=== PATIENT | female | born 1955 | race Caucasian/White ===

== ENCOUNTER 2019-05-09 12:08 | Outpatient (CLI) | payer MEDICARE, SELFPAY ==
[2019-05-09 12:22] LABS: Basophils Absolute Auto 0.02 K/mm3 (0.00-0.10); Basophils Percent Auto 0.3 % (0.0-1.0); Eosinophils Absolute Auto 0.08 K/mm3 (0.02-0.50); Eosinophils Percent Auto 1.1 % (1.0-6.0); Hematocrit 40.8 % (35.0-42.0); Immature Granulocyte Absolute 0.03 K/mm3 (0.00-0.00); Immature Granulocyte Percent A 0.4 % (0.0-0.0); Lymphocytes Percent Auto 21.9 % (18.0-42.0); Mean Corpuscular HGB Conc 31.9 g/dL (32.0-36.0); Mean Corpuscular Hemoglobin 26.1 pg (27.0-31.0); Mean Corpuscular Volume 81.9 fL (78.0-102.0); Mean Platelet Volume 9.6 fl (9.2-11.8); Monocytes Absolute Auto 0.53 K/mm3 (0.10-0.90); Monocytes Percent Auto 7.3 % (2.0-11.0); Platelet Count Result 354 K/mm3 (150-420); Red Blood Count 4.98 M/mm3 (4.20-5.40); Red Cell Distribution Width 17.1 % (11.6-14.4); White Blood Count 7.3 K/mm3 (4.8-10.8)
[2019-05-09 13:17] LABS: Alanine Aminotransferase 26 U/L (14-59); Alkaline Phosphatase 53 U/L (46-116); Anion Gap 13.7 mmol/L (7-16); Aspartate Amino Transferase 17 U/L (15-37); Bilirubin,Total 0.4 mg/dL (0.00-1.00); Blood Urea Nitrogen 17 mg/dL (7-18); Calcium 9.4 mg/dL (8.5-10.1); Carbon Dioxide 31 mmol/L (21-32); Chloride 101 mmol/L (98-108); Cholesterol 100 mg/dL (0-200); Estimated Glomerular Filt Rate > 60; Glucose 90 mg/dL (70-99); HDL Direct 42 mg/dL (40-60); LDL Cholesterol Calculated 43 mg/dL (<130); Osmolality Calculated 293 mOsm/kg (285-295); Potassium 4.7 mmol/L (3.5-5.1); Sodium 141 mmol/L (136-145); Triglycerides 74 mg/dL (0-150)
[2019-05-09 13:23] LABS: Thyroid Stimulating Hormone Reflex 2.48 u/IU/mL (0.36-3.74)
[2019-05-13 02:06] LABS: Hepatitis C Virus Antibody Nonreactive (Nonreactive)
== END 2019-05-09 12:09 | disposition home or self-care (01) ==
LOC: CHSLAB 12:10
PROVIDERS: PCP Family Medicine; Visit Provider Family Medicine
DX: E11.9 Type 2 diabetes mellitus without complications (principal); Z11.59 Encounter for screening for other viral diseases
CPT/HCPCS: 36415; 80053; 80061; 84443; 85025

== ENCOUNTER 2019-08-08 13:46 | Outpatient (CLI) | payer MEDICARE, SELFPAY ==
--- NOTE | ~2019-08-08 | XR_ITS ---
XR finger 4th RT min 2V DATE: 08/08/2019 14:07 INDICATION: Fourth digit contusion TECHNIQUE: 4 views COMPARISON: None FINDINGS: There is a very small cortical avulsion fracture from the dorsal base of the distal phalanx , with associated flexion deformity at the distal interphalangeal joint. There is mild to moderate osteoarthritic narrowing and minimal spurring at the proximal interphalange al joint. There is mild osteoarthritis of the third metacarpophalangeal joint. No other fracture or dislocation is detected. IMPRESSION: Reviewed, dictated and finalized at location A. IMPRESSION:
== END 2019-08-08 13:47 | disposition home or self-care (01) ==
LOC: CHSLAB 13:48
PROVIDERS: PCP Family Medicine; Visit Provider Family Medicine
DX: R29.898 Other symptoms and signs involving the musculoskeletal system (principal); S60.00XA Contusion of unspecified finger without damage to nail, initial encounter
CPT/HCPCS: 73140

== ENCOUNTER 2019-12-31 12:23 | Outpatient (CLI) | payer MEDICARE, SELFPAY ==
--- NOTE | ~2019-12-31 | MM_ITS ---
EXAMINATION: MM screening eunice BI w [place] HISTORY: Screening TECHNIQUE: Craniocaudal and mediolateral oblique 3-D tomosynthesis images were obtained and synthetic 2-D images were generated. CAD analysis was submitted and interpreted. COMPARISON: Comparison to multiple prior studies sequentially, with oldest reviewed study dated 11/14. BREAST PARENCHYMAL COMPOSITION: Breast composed of scattered areas of fibroglandular density FINDINGS: There is no evidence of suspicious mass, calcification, or architectural distortion to sugg est malignancy in either breast. There has been no suspicious interval change. IMPRESSION: 1. No mammographic evidence of malignancy. 2. Recommend routine screening mammography in one year. BI-RADS Category 1: Negative Reviewed, dictated and finalized at location A. T[employer] AUD[employer]OR
== END 2019-12-31 12:24 | disposition home or self-care (01) ==
LOC: CHSIMG 12:23
PROVIDERS: PCP Family Medicine; Visit Provider Family Medicine
DX: Z12.31 Encounter for screening mammogram for malignant neoplasm of breast (principal)
CPT/HCPCS: 77063; 77067

== ENCOUNTER 2020-04-16 09:41 | Outpatient (CLI) | payer MEDICARE, SELFPAY ==
[2020-04-16 09:56] LABS: Basophils Absolute Auto 0.01 K/mm3 (0.00-0.10); Basophils Percent Auto 0.1 % (0.0-1.0); Eosinophils Absolute Auto 0.12 K/mm3 (0.02-0.50); Eosinophils Percent Auto 1.8 % (1.0-6.0); Hematocrit 43.1 % (35.0-42.0); Hemoglobin 13.9 g/dL (11.7-13.8); Immature Granulocyte Absolute 0.04 K/mm3 (0.00-0.00); Immature Granulocyte Percent A 0.6 % (0.0-0.0); Lymphocytes Absolute Auto 1.54 K/mm3 (1.10-4.50); Mean Corpuscular HGB Conc 32.3 g/dL (32.0-36.0); Mean Corpuscular Hemoglobin 28.2 pg (27.0-31.0); Mean Corpuscular Volume 87.4 fL (78.0-102.0); Mean Platelet Volume 9.5 fl (9.2-11.8); Monocytes Absolute Auto 0.48 K/mm3 (0.10-0.90); Monocytes Percent Auto 7.2 % (2.0-11.0); Neutrophils Absolute Auto 4.5 K/mm3 (1.7-7.2); Neutrophils Percent Auto 67.3 % (50.0-70.0); Platelet Count Result 319 K/mm3 (150-420); Red Blood Count 4.93 M/mm3 (4.20-5.40); Red Cell Distribution Width 15.1 % (11.6-14.4); White Blood Count 6.7 K/mm3 (4.8-10.8)
[2020-04-16 10:35] LABS: Alanine Aminotransferase 34 U/L (14-59); Albumin Level 4.2 g/dL (3.4-5.0); Alkaline Phosphatase 56 U/L (46-116); Anion Gap 8 mmol/L (8-16); Aspartate Amino Transferase 30 U/L (15-37); Bilirubin,Total 0.5 mg/dL (0.00-1.00); Blood Urea Nitrogen 24 mg/dL (7-18); Calcium 9.5 mg/dL (8.5-10.1); Carbon Dioxide 29 mmol/L (21-32); Chloride 103 mmol/L (98-108); Estimated Glomerular Filt Rate > 60; Glucose 124 mg/dL (70-99); Osmolality Calculated 295 mOsm/kg (285-295); Sodium 140 mmol/L (136-145); Total Protein 7.4 g/dL (6.4-8.2)
== END 2020-04-16 09:42 | disposition home or self-care (01) ==
LOC: CHSLAB 09:44
PROVIDERS: PCP Family Medicine; Visit Provider Family Medicine
DX: E11.9 Type 2 diabetes mellitus without complications (principal)
CPT/HCPCS: 36415; 80053; 83036; 85025

== ENCOUNTER 2020-05-14 12:13 | Outpatient (CLI) | payer MEDICARE, SELFPAY ==
--- NOTE | ~2020-05-14 | DEXA_ITS ---
Bone Density Report Name: Marge Romero Age: 65 Sex: Female Ethnicity: White Date of : 1955 Indication: osteopenia; hysterectomy; Referring Provider: Trisha Kay Study: Bone densitometry was performed. Exam Date: May 14, 2020 Accession number: [id number] Bone Density: Region BMD T-score Z-score Classification AP Spine(L1, L3, L4) 1.008 -0.4 1.5 Normal Femoral Neck (Left) 0.574 -2.5 -0.9 Osteoporosis Total Hip (Left) 0.706 -1.9 -0.6 Osteopenia Femoral Neck (Right) 0.618 -2.1 -0.5 Osteopenia Total Hip (Right) 0.700 -2.0 -0.7 Osteopenia Femoral Neck Mean 0.596 -2.3 -0.7 Osteopenia Total Hip Mean 0.703 -2.0 -0.7 Osteopenia World Health Organization criteria for BMD impression classify patients as: Normal (T-score at or above -1.0), Osteopenia (T-score between -1.0 and -2.5), or Osteoporosis (T-score at or below -2.5). Previous Exams: Region Exam Age BMD T-score BMD Change BMD Change Date g/cm2 vs Baseline vs Previous AP Spine (L1,L3-L4) 05/14/2020 65 1.008 -0.4 0.012 (1.2%)# 0.012 (1.2%)# 12/01/2016 61 0.996 -0.5 Total Hip(Left) 05/14/2020 65 0.706 -1.9 -0.018 (-2.4%) -0.018 (-2.4%) 12/01/2016 61 0.723 -1.8 *Denotes significance at 95% confidence level, LSC for AP Spine = 0.022 g/cm2, LSC for Total Hip = 0.027 g/cm2 # Denotes dissimilar scan types or analysis methods Clinical Information Provided by Patient: Has the following medical conditions: Hysterectomy Patient maximum height was 67 Drinks caffeinated beverages Onset of menses at age 19 Number of children 2 Missed period for more than 6 months in a row Impression: The patient has osteoporosis, based on the Left Femoral Neck T-score. No significant bone loss was observed. Discussion: INCREASED RISK OF FRACTURE. BONE DENSITY IS UNDESIRABLY LOW AT ONE OR MORE SKELETAL SITES, CONSISTENT WITH POSTMENOPAUSAL OSTEOPOROSIS. This patient's lowest T-score meets the World Health Organization's (WHO) criteria for osteoporosis at one or more sites (T-score -2.5 or below). In untreated patients, the risk of osteoporotic fracture increases approximately two-fold for each 1.0 SD decrease in T-score. Low bone density is not the only risk factor for fracture; also consider factors such as patient's age, frailty or poor health, risk of falling, risk of injury, previous osteoporotic fracture, family history of osteoporosis, cigarette smoking, low body weight, etc. Not everyone with low bone mineral density has osteoporosis; osteomalacia and other metabolic bone disorders should also be considered. Patients who have osteoporosis should be evalua
== END 2020-05-14 12:14 | disposition home or self-care (01) ==
LOC: CHSIMG 12:16
PROVIDERS: PCP Family Medicine; Visit Provider Family Medicine
DX: M81.0 Age-related osteoporosis without current pathological fracture (principal)
CPT/HCPCS: 77080

== ENCOUNTER 2020-07-30 08:22 | Outpatient (CLI) | payer MEDICARE, SELFPAY ==
[2020-07-30 09:53] LABS: Cholesterol 129 mg/dL (0-200); HDL Direct 51 mg/dL (40-60); LDL Cholesterol Calculated 68 mg/dL (<130); Triglycerides 50 mg/dL (0-150)
== END 2020-07-30 08:23 | disposition home or self-care (01) ==
LOC: CHSLAB 08:23
PROVIDERS: PCP Family Medicine; Visit Provider Nurse Practitioner Family
DX: E78.5 Hyperlipidemia, unspecified (principal)
CPT/HCPCS: 36415; 80061

== ENCOUNTER 2020-10-01 10:00 | Outpatient (RCR) | payer MEDICARE, SELFPAY ==
--- NOTE | 2020-08-27 11:30 | PTOPEVAL ---
INITIAL PHYSICAL THERAPY EVALUATION and PLAN OF CARE Thank you for referring Marge Romero to [facility].? Marge is scheduled to be seen for physical therapy?1x/week for 4 weeks (there will be a 2 wk delay before onset of POC due to PT schedule and vacation). Please review, sign, date and return this plan of care CLEVE. I agree with and certify that the following plan of care is medically necessary. Referring Physician Date Admitting Provider: Attending Provider: Beka Leyva MD Referring Provider: *PT Outpatient Evaluation Start: 08/27/20 10:24 Freq: Status: Active Protocol: Document 08/27/20 10:20 ALEXIS (Rec: 08/27/20 11:29 ALEXIS [id number]) Therapy Assessment Status Assessment Status Assessment Status Evaluation Outpatient Past Medical History Past Medical History Source of Past Medical History Patient Cardiovascular History Hx Coronary Stent Yes: 2019 - 2 done Hx Hypercholesterolemia Yes Hx Hypertension Yes Hx Myocardial Infarction Yes: 2019 Gastrointestinal History Hx Diverticulitis Yes Genitourinary History Hx Other Genitourinary Disorders Yes: urinary incontinence Musculoskeletal History Hx Osteoporosis Yes Endocrine History Hx Diabetes Yes Reproductive History Hx Hysterectomy Yes: 1991 uterus & 1 ovary, 2nd ovary 2002 Hx Other Reproductive Disorders Yes: polycystic ovaries - prior to ovary removal Psychosocial History Hx Anxiety Yes Evaluation Information Problem Diagnosis urinary incontinence Onset slowly worsening - worse past 6 months Subjective Information Urinary leakage - worse with Query Text:As Reported By Patient/ walking to the bathroom, but Family will also have with cough, sneeze Once she feels the urge to urinate, begins to start leaking when not sitting on toliet Prior Level of Function Activity Level (Last 3 Months) 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 Home setraline, vitamins, fish oil, Meds Must Be Re-entered With Each Visit. omega 3, fosamax, melatonin, Vit C, zinc, clopitrial, 81 mg aspirin Home Setting Home Type House,Multiple Levels Environmental Barriers Stairs, Greater than 4 Living Situation With A
--- NOTE | 2020-10-01 12:14 | PTOPEVAL ---
PHYSICAL THERAPY DISCHARGE SUMMARY Thank you for referring Marge Romero to [facility].? Marge has been seen for 4 visits. She has met all goals set and is doing well with HEP. She is ready for d/c from PT to HEP. I agree with Marge's discharge from PT. Referring Physician Date Admitting Provider: Attending Provider: Beka Leyva MD Referring Provider: Therapy Assessment Status Assessment Status Assessment Status Discharge Evaluation Information Problem Diagnosis urinary incontinence Subjective Information Marge stated she has been very Query Text:As Reported By Patient/ busy at work - as well as Family having some neck and back pain - therefore she has slacked off from her exercises. Reinforced that she needs to continue with exercises on a regular basis. Generally not getting up at night to go to bathroom and no leakage with walking to bathroom. Pain Assessment Timing of Pain Assessment Timing of Pain Assessment Assessment Self Report Self Report Pain Level 0 Pelvic Health Evaluation Pelvic Floor Assessment Sustained Levator Ani Strength 4/5 Quick Levator Ani Contraction in 15 12 Seconds Rehab Teaching Rehab Teaching Teaching Topic Rehab Teaching Topic Components Exercise,Home Program As Pertains To Technique Recipient Patient Learning Preferences Audio,Demonstration,Discussion ,One-on-One Instruction,Visual ,Written Barriers to Learning None Readiness to Learn Excellent Response Returns Demonstration, Verbalizes Understanding Method Discussion,Handout,One-On-One Instruction,Written Instruction Additional Rehab Teaching Comments upgraded HEP, reviewed importance of continuing with HEP PT Clinical Summary Clinical Summary Protocol: PTEVCODE PT Clinical Summary Incontinence Impact Questionnaire - 9.5% Urogenital Distress Inventory - 11.1% Marge has done well in PT in regards to urinary incontinence. She has met all goals set and is doing well with HEP. She is to continue
== END 2020-11-10 16:26 | disposition home or self-care (01) ==
LOC: ANHHIPT 10:00
PROVIDERS: PCP Family Medicine; Visit Provider Family Medicine
DX: M25.511 Pain in right shoulder (principal); N39.46 Mixed incontinence
CPT/HCPCS: 97110; 97161

== ENCOUNTER 2020-12-07 12:00 | Outpatient (CLI) | payer MEDICARE, SELFPAY ==
--- NOTE | 2020-12-07 12:19 | ECG_ITS ---
Measurements Intervals Hamer Rate: 56 P: 39 MD: 156 QRS: 13 QRSD: 90 T: 14 QT: 466 QTc: 451 Interpretive Statements SINUS BRADYCARDIA DELAYED PRECORDIAL R/S TRANSITION BORDERLINE ECG Electronically Signed On 12-07-2020 12:56:17 CDT by Maxime Vuong D.O.
[2020-12-07 12:38] LABS: Hematocrit 40.5 % (37.0-47.0); Hemoglobin 13.1 g/dL (12.0-15.0)
[2020-12-07 13:07] LABS: Anion Gap 11 mmol/L (8-16); Blood Urea Nitrogen 38 mg/dL (7-17); Calcium 9.4 mg/dL (8.4-10.2); Carbon Dioxide 24 mmol/L (22-30); Chloride 105 mmol/L (98-107); Estimated Glomerular Filt Rate > 60; Glucose 120 mg/dL (65-110); Potassium 4.7 mmol/L (3.4-5.0); Sodium 140 mmol/L (137-145)
== END 2020-12-07 12:01 | disposition home or self-care (01) ==
LOC: ANHSURGERY 12:05
PROVIDERS: Anesthesiology; PCP Family Medicine; Visit Provider Orthopaedic Surgery
DX: D64.9 Anemia, unspecified (principal); I10 Essential (primary) hypertension; R00.1 Bradycardia, unspecified
CPT/HCPCS: 36415; 80048; 85014; 85018; 93005

== ENCOUNTER 2020-12-10 00:29 | Day surgery (SDC) | payer MEDICARE, SELFPAY ==
[2020-12-06 13:13] VITALS: BMI 24.3
[2020-12-10] VITALS (8 sets, daily range): BP systolic 99–120; BP diastolic 47–67; PULSE 58–67; RESP 5–18; TEMP 36.3–36.4; O2SAT 96–100
--- NOTE | 2020-12-10 07:16 | WPDHPUPDATE1 ---
History and Physical Update Update Date/Time: 12/10/20 07:16 History and Physical has been reviewed, including an updated exam of the patient. There are NO changes in the patient's condition. Risks, benefits, and alternatives have been discussed and questions answered. Patient agrees to proceed with procedure.
[2020-12-10] MEDS: LACTATED RINGERS 1,000 ML 30 ML IV CONT (07:35)
[2020-12-10] MEDS: ACETAMINOPHEN 500 MG TABLET 1000 MG PO (07:38)
[2020-12-10] MEDS: CELECOXIB 200 MG CAPSULE PO (07:38)
[2020-12-10 07:44] LABS: Glucose Point of Care 134 mg/dl (65-105)
--- NOTE | 2020-12-10 07:56 | WPDANESEPPF ---
Anes - Initial Pre Proc Eval Procedure: Operation Date: 12/10/20 09:00 Proposed Procedures p Right Trigger Finger Release, Fourth Digit A-1 Zunilda - Wilfredo Velez MD Date/Time: 12/10/20 07:56 Surgeon: Wilfredo Velez MD Pre Op Diagnosis: right trigger finger a-1 zunilda Patient Data Age: 65 Gender: F Height: 1.66 m Weight: 68.7 kg Last Vital Signs Temp 36.3 C L 12/10/20 07:49 Pulse 58 L 12/10/20 07:49 Resp 18 12/10/20 07:49 BP 101/47 L 12/10/20 07:49 Pulse Ox 98 12/10/20 07:49 Allergies Allergy/AdvReac Type Severity Reaction Status Date / Time Penicillins Allergy Unknown Hives Verified 12/10/20 07:48 IVP dye Allergy Intermediate Hives Uncoded 12/10/20 07:48 Home Medications Medication Instructions Recorded Confirmed Type aspirin 81 mg tablet,delayed 81 mg PO DAILY 01/31/19 12/10/20 History release atorvastatin 40 mg tablet 40 mg PO DAILY 01/31/19 12/10/20 History clopidogrel 75 mg tablet 75 mg PO DAILY 01/31/19 12/10/20 History dapagliflozin 10 mg tablet 10 mg PO DAILY 01/31/19 12/10/20 History hydroxyzine HCl 25 mg tablet 25 mg PO TID PRN 01/31/19 12/10/20 History metformin 1,000 mg tablet 1,000 mg PO BID 01/31/19 12/10/20 History fluticasone propionate 50 1 spray NASAL DAILY #18.2 ml 04/02/19 12/10/20 Rx mcg/actuation nasal spray,suspension liraglutide 0.6 mg/0.1 mL (18 mg/3 18 mg SUBCUT QPM 05/09/19 12/10/20 History mL) subcutaneous pen injector nitroglycerin 0.4 mg sublingual 0.4 mg SUBLINGUAL PRN PRN tablet 05/09/19 12/10/20 History tablet omega-3 fatty acids 1,000 mg 1,000 mg PO BID cap 05/09/19 12/10/20 History capsule iron 125 mg-folate no.9 1 mg-vit 1 tablet PO DAILY #30 tablet 09/04/19 12/10/20 Rx C 170 mg-D3 1,000 unit-B6-B12 tablet diclofenac potassium 50 mg tablet 50 mg PO TID PRN #90 tablet 09/12/19 12/10/20 Rx lisinopril 20 mg tablet 20 mg PO DAILY #90 tablet 12/03/19 12/10/20 Rx ascorbic acid (vitamin C) 1,000 mg 1 g PO BID tablet 04/30/20 12/10/20 History tablet cetirizine 10 mg capsule 10 mg PO DAILY PRN 04/30/20 12/10/20 History melatonin 10 mg tablet 10 mg PO QHS 04/30/20 12/10/20 History zinc 50 mg tablet 50 mg PO DAILY 04/30/20 12/10/20 History multivitamin 1 tablet PO DAILY #90 tablet 06/07/20 12/10/20 Rx metoprolol tartrate 50 mg tablet 50 mg PO Q12H #180 tablet 07/23/20 12/10/20 Rx insulin degludec 100 unit/mL (3 20 unit SUBCUT QPM ml 07/30/20 12/10/20 History mL) subcutaneous pen cholecalciferol (vitamin D3) 125 125 mcg PO DAILY #30 cap 10/08/20 12/10/20 Rx mcg (5,000 unit) capsule chlorhexidine gluconate 4 % 1 applic TOPICAL ONCE #237 ml 11/23/20 12/10/20 Rx topical liquid sertraline 100 mg tablet 100 mg PO DAILY #90 tablet 12/08/20 12/10/20 Rx Laboratory Tests 12/10/20 07:41 POC Capillary Glucose 134 mg/dl H mg/dl (65-105) Patient hx anesthesia problems: post op nausea/vomiting Family hx anesthesia problems: none Results Review: All pre-operative results and documents have been reviewed as part of the pre-operative evaluation. [facility] Past Medical History Medical History Anxiety Arthritis CAD (coronary artery disease) Depression Diverticulosis DM2 (diabetes mellitus, type 2) Food allergy DMITRI (generalized anxiety disorder) GERD (gastroesophageal reflux disease) High cholesterol History of anesthesia reaction Hyperlipidemia Hypertension Mixed stress and urge urinary incontinence Myocardial infarction May 2018 Seasonal allergies Trigger ring finger of right hand Surgical History Surgical History H/O oophorectomy History of coronary artery stent placement History of hysterectomy Family History Family History Father Diabetes mellitus Sibling Pancreatic cancer Type 1 diabetes Brother Family history of
[2020-12-10] MEDS: SCOPOLAMINE 1.5 MG PATCH TRANSDERM (08:37)
[2020-12-10] MEDS: ceFAZolin 2 GM/D5W 50 ML 2 GM/50 ML BAG IVPB (08:39)
[2020-12-10] MEDS: BUPIVACAINE HCL 0.5% PF 30 ML VIAL INFILTRATE (09:07)
--- NOTE | 2020-12-10 09:29 | W.PM.PROC2 ---
Procedure Note - Detailed Date of Procedure 12/10/20 Pre-op Diagnosis TRIGGERING OF RIGHT OF RING FINGER Post-op Diagnosis same Procedure Performed RELEASE OF A1 BETTY RIGHT RING FINGER Surgeon Wilfredo Velez MD Anesthesia general Description of Procedure THE PATIENT WAS TAKEN TO THE OR IN STABLE CONDITION. THE RIGHT UPPER EXTREMITY WAS PREPPED AND DRAPED IN THE USUAL STERILE FASHION. THE TOURNIQUET WAS INFLATED. AN INCISION WAS MADE OVER THE RING FINGER A1 BETTY DOWN THROUGH THE SUBCUTANEOUS TISSUES UNTIL THE A1 BETTY SHEATH WAS VISUALIZED. AN INCISION WAS MADE OVER THE BETTY UNTIL THE FLEXOR TENDON WAS IDENTIFIED. THE INCISION CONTINUED PROXIMALLY AND DISTALLY UNTIL THE BETTY WAS RELEASED AND THE TENDON EXCURSION WAS WITHOUT TRIGGERING. THE TENDONS WERE DIRECTLY VISUALIZED AND WERE INTACT. THE TOURNIQUET WAS DEFLATED AND THE WOUND WAS WASHED AND THE BLEEDERS WERE CAUTERIZED. THE SKIN WAS REPAIRED WITH 4-0 NYLON. A STERILE DRESSING WAS APPLIED. THE PATIENT WAS EXTUBATED AND SENT TO RECOVERY ROOM. Estimated Blood Loss 1 Complications No immediate complications Condition stable Disposition PACU
--- NOTE | 2020-12-10 09:51 | SUR.PHASEI ---
0951- family member updated.
== END 2020-12-10 11:21 | disposition home or self-care (01) ==
PROVIDERS: PCP Family Medicine; Visit Provider Orthopaedic Surgery
PROC: (CPT 26055; principal; 2020-12-10 09:00)
DX: M65.321 Trigger finger, right index finger (principal); F41.8 Other specified anxiety disorders; M19.90 Unspecified osteoarthritis, unspecified site; I25.10 Atherosclerotic heart disease of native coronary artery without angina pectoris; K57.90 Diverticulosis of intestine, part unspecified, without perforation or abscess without bleeding; E11.9 Type 2 diabetes mellitus without complications; F41.1 Generalized anxiety disorder; E78.00 Pure hypercholesterolemia, unspecified; E78.5 Hyperlipidemia, unspecified; I10 Essential (primary) hypertension; I25.2 Old myocardial infarction; Z79.82 Long term (current) use of aspirin; Z79.84 Long term (current) use of oral hypoglycemic drugs; M79.641 Pain in right hand; Z87.891 Personal history of nicotine dependence; Z79.4 Long term (current) use of insulin
CPT/HCPCS: 26055; 82948; A9270; J0690; J1100; J2250; J2405; J2704; J3010; J7120

== ENCOUNTER 2020-12-14 13:21 | Outpatient (CLI) | payer MEDICARE, SELFPAY ==
[2020-12-14 14:12] LABS: Influenza A QL RT-PCR Negative (Negative); Influenza B QL RT-PCR Negative (Negative); SARS-CoV-2 RNA PCR Negative (Negative)
== END 2020-12-14 13:22 | disposition home or self-care (01) ==
LOC: CHSLAB 13:25
PROVIDERS: PCP Family Medicine; Visit Provider Nurse Practitioner Family
DX: R05.9 Cough, unspecified (principal); Z20.822 Contact with and (suspected) exposure to COVID-19
CPT/HCPCS: 87502; C9803; U0003; U0005

== ENCOUNTER 2021-01-07 07:09 | Outpatient (CLI) | payer MEDICARE, SELFPAY ==
--- NOTE | ~2021-01-07 | MM_ITS ---
EXAMINATION: MM screening eunice BI w [place] HISTORY: Screening mammogram TECHNIQUE: Craniocaudal and mediolateral oblique 3-D tomosynthesis images were obtained and synthetic 2-D images were generated. CAD analysis was submitted and interpreted. COMPARISON: 12/2019, 12/27/2018, 12/11/2016 bilateral screening mammogram examinations BREAST PARENCHYMAL COMPOSITION: There are scattered areas of fibroglandular density. FINDINGS: Occasional benign calcifications. There is no evidence of suspicious mass, calcification, o r architectural distortion to suggest malignancy in either breast. There has been no suspicious inter ivan change. IMPRESSION: 1. No mammographic evidence of malignancy. 2. Recommend routine screening mammography in one year. BI-RADS Category 2: Benign finding(s). Reviewed, dictated and finalized at location A. LER
== END 2021-01-07 07:10 | disposition home or self-care (01) ==
LOC: CHSIMG 07:11
PROVIDERS: PCP Family Medicine; Visit Provider Family Medicine
DX: Z12.31 Encounter for screening mammogram for malignant neoplasm of breast (principal)
CPT/HCPCS: 77063; 77067

== ENCOUNTER 2021-02-11 09:28 | Outpatient (CLI) | payer MEDICARE, SELFPAY ==
--- NOTE | ~2021-02-11 | XR_ITS ---
EXAMINATION: XR hip RT min 3V w AP pelvis INDICATION: Right hip pain TECHNIQUE: AP view the pelvis and three views of the right hip are obtained. COMPARISON: 02/07/2010 FINDINGS: Bone alignment is normal. There is no fracture. There is mild osteoarthritis of the hips. P hleboliths are noted in the pelvis. IMPRESSION: 1. No acute osseous abnormality. Reviewed, dictated and finalized at location A. CAL PLANNER
== END 2021-02-11 09:29 | disposition home or self-care (01) ==
LOC: CHSIMG 09:30
PROVIDERS: PCP Nurse Practitioner Family; Visit Provider Nurse Practitioner Family
DX: M25.551 Pain in right hip (principal)
CPT/HCPCS: 73502

== ENCOUNTER 2021-02-14 07:30 | Outpatient (RCR) | payer MEDICARE, SELFPAY ==
--- NOTE | 2021-02-14 08:06 | PTOPEVAL ---
Thank you for referring Marge Romero to [facility].? The patient is scheduled to be seen for therapy? ____x/week for ___ weeks. Please review, sign, date and return this plan of care CLEVE. I agree with and certify that the following plan of care is medically necessary. Referring Physician Date Admitting Provider: Attending Provider: Trisha Kay NP Referring Provider: *PT Outpatient Evaluation Start: 02/14/21 06:56 Freq: Status: Active Protocol: Document 02/14/21 06:56 ACR (Rec: 02/14/21 08:04 ACR [id number]) Therapy Assessment Status Assessment Status Assessment Status Evaluation Outpatient Past Medical History Neurological History Hx Neurological Disorders No Significant History Cardiovascular History Hx Other Cardiac Disorders Yes: DR TIFFANY DUNLAP [facility] [phone] SEES ONCE A YR Respiratory History Hx Respiratory Disorders No Significant History Gastrointestinal History Hx Gastroesophageal Reflux Disease Yes Genitourinary History Hx Genitourinary Disorders No Significant History Musculoskeletal History Hx Arthritis Yes: GENERALIZED Hx Orthopedic Surgery Yes: BILAT KNEE SCOPE Hx Other Musculoskeletal Disorders Yes: RT TRIGGER FINGER Hematological History Hx Anemia Yes: TAKING PO IRON TABS Endocrine History Hx Diabetes Yes HEENT History Hx Sinus Problems Yes: ALLERGIES Hx Other HEENT Disorders Yes: WEARS GLASSES Integumentary History Hx Skin Disorders No Significant History Reproductive History Hx Section Yes: X2 Psychosocial History Hx Depression Yes Pain History History of Any Previous or Ongoing No Significant History Instance of Pain Anesthesia History Hx Post-Op Nausea/Vomiting Yes Evaluation Information Problem Diagnosis R hip pain Onset 02/11/21 Subjective Information Patient states that she has Query Text:As Reported By Patient/ had hip problems for awhile, Family but recently when she is walking or takes the wrong step the pain shoots in the hip region and occasionally down the leg. She states that the knee also bothers her but thinks it is from compensation . Patient states that walking/ standing for a period of time, picking up a heavy object, getting up from a seated position are all difficult for her. Patient states madai
--- NOTE | 2021-03-09 08:01 | PTOPEVAL ---
Thank you for referring Marge Romero to [facility].? The patient is scheduled to be seen for therapy? ____x/week for ___ weeks. Please review, sign, date and return this plan of care CLEVE. I agree with and certify that the following plan of care is medically necessary. Referring Physician Date Admitting Provider: Attending Provider: Trisha Kay NP Referring Provider: *PT Outpatient Evaluation Start: 02/14/21 06:56 Freq: Status: Active Protocol: Document 03/09/21 07:02 ACR (Rec: 03/09/21 07:58 ACR [id number]) Therapy Assessment Status Assessment Status Assessment Status Progress Outpatient Past Medical History Neurological History Hx Neurological Disorders No Significant History Cardiovascular History Hx Other Cardiac Disorders Yes: DR TIFFANY DUNLAP [facility] [phone] SEES ONCE A YR Respiratory History Hx Respiratory Disorders No Significant History Gastrointestinal History Hx Gastroesophageal Reflux Disease Yes Genitourinary History Hx Genitourinary Disorders No Significant History Musculoskeletal History Hx Arthritis Yes: GENERALIZED Hx Orthopedic Surgery Yes: BILAT KNEE SCOPE Hx Other Musculoskeletal Disorders Yes: RT TRIGGER FINGER Hematological History Hx Anemia Yes: TAKING PO IRON TABS Endocrine History Hx Diabetes Yes HEENT History Hx Sinus Problems Yes: ALLERGIES Hx Other HEENT Disorders Yes: WEARS GLASSES Integumentary History Hx Skin Disorders No Significant History Reproductive History Hx Section Yes: X2 Psychosocial History Hx Depression Yes Pain History History of Any Previous or Ongoing No Significant History Instance of Pain Anesthesia History Hx Post-Op Nausea/Vomiting Yes Evaluation Information Problem Diagnosis R hip pain Onset 02/11/21 Subjective Information Patient states that her hip is Query Text:As Reported By Patient/ feeling a lot better, but her Family maldonado/ankle region bothers her quite a bit by the end of the day. She states that her maldonado is sensitive to touch after a day at work. She states that she feels her balance is quite a bit better, her hip does not cause the sharp pain like it use to, and all other daily activities are a little easier. She states she does not have much difficulty doing anything since
--- NOTE | 2021-03-16 08:21 | PTOPEVAL ---
Thank you for referring Marge Romero to [facility].? The patient is scheduled to be seen for therapy? ____x/week for ___ weeks. Please review, sign, date and return this plan of care CLEVE. I agree with and certify that the following plan of care is medically necessary. Referring Physician Date Admitting Provider: Attending Provider: Trisha Kay NP Referring Provider: *PT Outpatient Evaluation Start: 02/14/21 06:56 Freq: Status: Active Protocol: Document 03/16/21 07:06 [facility] (Rec: 03/16/21 08:20 [facility] [id number]) Therapy Assessment Status Assessment Status Assessment Status Discharge Outpatient Past Medical History Neurological History Hx Neurological Disorders No Significant History Cardiovascular History Hx Other Cardiac Disorders Yes: DR TIFFANY DUNLAP [facility] [phone] SEES ONCE A YR Respiratory History Hx Respiratory Disorders No Significant History Gastrointestinal History Hx Gastroesophageal Reflux Disease Yes Genitourinary History Hx Genitourinary Disorders No Significant History Musculoskeletal History Hx Arthritis Yes: GENERALIZED Hx Orthopedic Surgery Yes: BILAT KNEE SCOPE Hx Other Musculoskeletal Disorders Yes: RT TRIGGER FINGER Hematological History Hx Anemia Yes: TAKING PO IRON TABS Endocrine History Hx Diabetes Yes HEENT History Hx Sinus Problems Yes: ALLERGIES Hx Other HEENT Disorders Yes: WEARS GLASSES Integumentary History Hx Skin Disorders No Significant History Reproductive History Hx Section Yes: X2 Psychosocial History Hx Depression Yes Pain History History of Any Previous or Ongoing No Significant History Instance of Pain Anesthesia History Hx Post-Op Nausea/Vomiting Yes Evaluation Information Problem Diagnosis R hip pain Onset 02/11/21 Additional Evaluation Detail LEFS = 6% functionally declined Subjective Information patient reports she feels Query Text:As Reported By Patient/ Good this date. she reports Family she is compliant with her HEP. she reports she is much better than when she first started therapy. Pain Assessment Timing of Pain Assessment Timing of Pain Assessment Assessment Pain Scale Pain Scale Used Numeric (1 - 10) Self Report Pain Assessment Right Hip(s) Reported Pain Level 0 Greatest Pain Intensity 1 Pain Score Pain Score 0: Self Report Interventions Used Interventions Used By Clinicians Activity or ADL's,Education,
== END 2021-03-16 09:16 | disposition home or self-care (01) ==
LOC: CHSPT 07:30
PROVIDERS: Visit Provider Nurse Practitioner Family
DX: M25.551 Pain in right hip (principal)
CPT/HCPCS: 97110; 97161; 97530

== ENCOUNTER 2021-03-04 08:14 | Outpatient (CLI) | payer MEDICARE, SELFPAY ==
[2021-03-04 08:34] VITALS: BP 123/67; PULSE 72; RESP 14; TEMP 36.6; O2SAT 99; BMI 24.5
[2021-03-04] MEDS: ZOLEDRONIC ACID 5 MG/100 ML 100 ML 400 MG IVPB (08:35)
--- NOTE | 2021-03-04 08:54 | PC.NURSE ---
Patient here for IV Reclast infusion. Education given. No concerns voiced. IV Reclast administered. Tolerated well. Safe exit of hospital.
== END 2021-03-04 08:15 | disposition home or self-care (01) ==
LOC: CHSTREATRM 08:19
PROVIDERS: PCP Nurse Practitioner Family; Visit Provider Nurse Practitioner Family
DX: M81.0 Age-related osteoporosis without current pathological fracture (principal)
CPT/HCPCS: 96365; 96374; J3489

== ENCOUNTER 2021-05-20 09:38 | Outpatient (CLI) | payer MEDICARE, SELFPAY ==
--- NOTE | ~2021-05-20 | XR_ITS ---
XR_[id number]_CR DATE: 05/20/2021 09:58 INDICATION: Cervical radiculopathy; right arm tingling TECHNIQUE: AP, lateral, open-mouth views COMPARISON: None FINDINGS: There is severe degenerative disease with 2 mm retrolisthesis at C4-5. There is moderate loss of interspace height at C5-6 and C6-7. Prominent uncovertebral joint spurring is noted at C4-5, C5-6 and C6-7 No fracture or dislocation or locked facet or prevertebral soft tissue swelling. C1 and C2 are normal ly aligned and the odontoid process is intact. IMPRESSION: Severe degenerative disease and 2 mm retrolisthesis at C4-5 Moderate degenerative disc disease at C5-6 and C6-7 Uncovertebral joint spurring at the mid and lower cervical spine Reviewed, dictated and finalized at Location A. Reviewed, dictated and finalized at location A.
== END 2021-05-20 09:39 | disposition home or self-care (01) ==
PROVIDERS: PCP Nurse Practitioner Family; Visit Provider Nurse Practitioner Family
DX: M54.12 Radiculopathy, cervical region (principal); Z12.4 Encounter for screening for malignant neoplasm of cervix
CPT/HCPCS: 72040; 88175; G0145

== ENCOUNTER 2021-05-28 07:28 | Outpatient (CLI) | payer MEDICARE, SELFPAY ==
--- NOTE | ~2021-05-28 | MR_ITS ---
EXAMINATION: MR cervical spine wo con DATE: 05/28/2021 08:34 INDICATION: Spondylolisthesis, site unspecified. Neck pain. TECHNIQUE: Magnetic resonance imaging (MRI) of the cervical spine was performed without intravenous c ontrast. Sequences included sagittal T2-weighted FSE, sagittal T2-weighted FS FSE, sagittal T1-weight ed FSE, axial MERGE, and axial T2-weighted FSE. COMPARISON: Cervical spine radiographs 05/20/2021 FINDINGS: There is 2 mm retrolisthesis of C4 on C5. Vertebral body heights are normal. There is mildl y decreased disc height at C3-C4, severely decreased disc height at C4-C5, and moderately decreased d isc height at C5-C6 and C6-C7. The spinal cord signal intensity is normal. The following disc levels are specifically discussed: C2-C3: There is a central protrusion. There is no uncovertebral joint osteoarthritis. There is modera te right and mild left facet joint osteoarthritis. There is mild right neural foraminal stenosis. The re is mild central canal stenosis. C3-C4: There is a right central extrusion. There is moderate right and mild left uncovertebral joint osteoarthritis. There is severe right and moderate left facet joint osteoarthritis. There is moderate right and mild left neural foraminal stenosis. There is mild central canal stenosis with ventral ind entation of the spinal cord. C4-C5: The disc is bulging. There is severe bilateral uncovertebral joint osteoarthritis. There is mi ld bilateral facet joint osteoarthritis. There is moderate bilateral neural foraminal stenosis. There is moderate central canal stenosis with ventral and dorsal indentation of the spinal cord. C5-C6: There is a left central extrusion. There is moderate bilateral uncovertebral joint osteoarthri tis. There is mild bilateral facet joint osteoarthritis. There is moderate bilateral neural foraminal stenosis. There is moderate central canal stenosis with ventral and dorsal indentation of the spinal cord. C6-C7: The disc is bulging. There is severe left uncovertebral joint osteoarthritis. There is severe bilateral facet joint osteoarthritis. There is mild right and moderate left neural foraminal stenosis . There is mild central canal stenosis. C7-T1: The disc does not extend beyond the endplate margin. There is no uncovertebral joint osteoarth ritis. There is moderate right and severe left facet joint osteoarthritis. There is mild bilateral ne ural foraminal stenosis. There is no central canal stenosis. IMPRESSION: 1. Severe cervical spondylosis. Reviewed, dictated and finalized at location E.
== END 2021-05-28 07:29 | disposition home or self-care (01) ==
LOC: CHSIMG 07:30
PROVIDERS: PCP Nurse Practitioner Family; Visit Provider Nurse Practitioner Family
DX: M43.10 Spondylolisthesis, site unspecified (principal); M50.30 Other cervical disc degeneration, unspecified cervical region; M54.12 Radiculopathy, cervical region
CPT/HCPCS: 72141

== ENCOUNTER 2021-08-27 07:27 | Outpatient (CLI) | payer MEDICARE, SELFPAY ==
--- NOTE | ~2021-08-27 | MR_ITS ---
EXAMINATION: MR hip RT wo con DATE: 08/27/2021 09:01 INDICATION: Worsening right hip pain TECHNIQUE: Magnetic resonance imaging (MRI) of the right hip was performed without intravenous contr ast. Sequences included full-field axial PD-weighted FS FSE and T1-weighted FSE, coronal of the pelvi s with PD-weighted FS FSE, small field of view of the right hip with axial PD-weighted FS FSE, sagit kyree PD-weighted FS FSE and coronal PD weighted FS FSE. COMPARISON: Radiographs dated 02/11/2021 FINDINGS: Bones/labrum/cartilage: Alignment is normal. No fracture, avascular necrosis or pathologic marrow replacing process. Mild os teoarthritis at the right hip with deep chondral ulceration without degenerative subchondral changes at the right femoral head and acetabulum along the anterosuperior and superomedial aspect of the righ t space. There is a tear of the anterosuperior acetabular labrum. Fluid: Symmetric physiologic amount of fluid within both hip joints. Soft tissues: Normal and symmetric muscle bulk and signal in the pelvis and visualized proximal thighs. The iliopso as and gluteal tendons are normal. Small enthesophytes on the right ischial insertion of the proximal right hamstring tendons with mild thickening of the tendons and mild increased fluid signal along th e the right ischial tuberosity consistent with mild tendinopathy/enthesopathy and mild ischial bursit is. The uterus is not identified and has likely been surgically resected. Limited evaluation of visce ral organs of the pelvis is unremarkable including a normal appendix. No pathologically enlarged pel winston/inguinal lymphadenopathy. IMPRESSION: 1. Mild to moderate right hip osteoarthritis with tear at the anterosuperior right acetabular labrum. 2. Mild right ischial bursitis with mild tendinopathy/enthesopathy without tear at the proximal right hamstring tendons. Reviewed, dictated and finalized at location A. IMPRESSION: 1. Mild to moderate right hip osteoarthritis with tear at the anterosuperior ri ght acetabular labrum. 2. Mild right ischial bursitis with mild tendinopathy/enthesopathy without tear at the proximal right hamstring tendons.
== END 2021-08-27 07:28 | disposition home or self-care (01) ==
LOC: CHSIMG 07:28
PROVIDERS: PCP Nurse Practitioner Family; Visit Provider Nurse Practitioner Family
DX: M25.551 Pain in right hip (principal)
CPT/HCPCS: 73721

== ENCOUNTER 2021-09-23 09:02 | Outpatient (CLI) | payer MEDICARE, SELFPAY ==
--- NOTE | ~2021-09-23 | XR_ITS ---
EXAMINATION: XR lg joint inject/asp w image DATE: 09/23/2021 10:33 INDICATION: Right hip arthritis TECHNIQUE: A time-out was performed to verify the patient's name, date of , and procedure to b e performed. The procedure including the risks, benefits, and alternatives was discussed with the pat ient. Risks discussed included bleeding and infection. The patient understood the risks and agreed to proceed. The skin overlying the right hip joint was prepped and draped in usual sterile fashion. A nesthetic was administered with 1% lidocaine subcutaneously. A 22 G needle was advanced under fluoro scopic guidance into the joint. Injection of a small amount of room air confirmed intra-articular po sition of the needle. Subsequently, injectate consisting of 3 mL of a 2:1 mixture of 0.5% Marcaine: 80 mg/mL Depo-Medrol for a total dosage of 80 mg Depo-Medrol was instilled. The needle was removed an d the entry site was cleaned and dressed. There were no immediate complications. Fluoroscopy exposur e time was 0.1 minutes. The total number of images was 2. FINDINGS: Real-time fluoroscopy demonstrates the needle and injected gas in the right hip joint. Keyla ent's pain prior to procedure:5/10. Patient's pain following the procedure: 0/10. IMPRESSION: 1. Successful right hip joint injection of local anesthetic and steroid with decrease in the patient' s presenting pain. Reviewed, dictated and finalized at location A. IMPRESSION: 1. Successful right hip joint injection of local anesthetic and steroid with de crease in the patient's presenting pain.
== END 2021-09-23 09:03 | disposition home or self-care (01) ==
PROVIDERS: PCP Nurse Practitioner Family; Visit Provider Orthopaedic Surgery
DX: M25.551 Pain in right hip (principal)
CPT/HCPCS: 20610; 77002; J1040

== ENCOUNTER 2022-01-16 07:16 | Outpatient (CLI) | payer MEDICARE, SELFPAY ==
--- NOTE | ~2022-01-16 | MM_ITS ---
EXAMINATION: MM screening [facility] w [place] HISTORY: Screening mammogram TECHNIQUE: Craniocaudal and mediolateral oblique 3-D tomosynthesis images were obtained and synthetic 2-D images were generated. CAD analysis was submitted and interpreted. COMPARISON: 01/07/2021, 12/2019, 12/27/2018 bilateral screening mammogram examinations BREAST PARENCHYMAL COMPOSITION: There are scattered areas of fibroglandular density. FINDINGS: Occasional benign calcifications. There is no evidence of suspicious mass, calcification, o r architectural distortion to suggest malignancy in either breast. There has been no suspicious inter ivan change. IMPRESSION: 1. No mammographic evidence of malignancy. 2. Recommend routine screening mammography in one year. BI-RADS Category 2: Benign finding(s). Reviewed, dictated and finalized at location A. SALES ADVISOR
== END 2022-01-16 07:17 | disposition home or self-care (01) ==
LOC: CHSIMG 07:18
PROVIDERS: PCP Nurse Practitioner Family; Visit Provider Nurse Practitioner Family
DX: Z12.31 Encounter for screening mammogram for malignant neoplasm of breast (principal)
CPT/HCPCS: 77063; 77067

== ENCOUNTER 2022-09-01 10:02 | Outpatient (CLI) | payer MEDICARE, SELFPAY ==
--- NOTE | 2022-09-01 10:16 | ECG_ITS ---
Measurements Intervals [place] Rate: 58 P: 60 [place]: 153 QRS: 56 QRSD: 89 T: 49 QT: 455 QTc: 449 Interpretive Statements SINUS BRADYCARDIA BORDERLINE ST ABNORMALITY- ANTEROLATERAL LEADS BORDERLINE ECG COMPARED TO ECG 12/07/2020 12:32:34 ST (T WAVE) DEVIATION NOW PRESENT Electronically Signed On 09-01-2022 10:58:24 CDT by Maxime Vuong D.O.
[2022-09-01 10:18] LABS: Hematocrit 42.8 % (35.0-42.0); Hemoglobin 13.9 g/dL (11.7-13.8); Mean Corpuscular HGB Conc 32.5 g/dL (32.0-36.0); Mean Corpuscular Hemoglobin 28.4 pg (27.0-31.0); Mean Corpuscular Volume 87.3 fL (78.0-102.0); Mean Platelet Volume 9.5 fl (9.2-11.8); Platelet Count Result 319 K/mm3 (150-420); Red Cell Distribution Width 14.9 % (11.6-14.4); White Blood Count 7.7 K/mm3 (4.8-10.8)
[2022-09-01 11:00] LABS: Alanine Aminotransferase 26 U/L (14-59); Alkaline Phosphatase 52 U/L (46-116); Anion Gap 7 mmol/L (8-16); Aspartate Amino Transferase 16 U/L (15-37); Bilirubin,Total 0.4 mg/dL (0.00-1.00); Blood Urea Nitrogen 17 mg/dL (7-18); Carbon Dioxide 30 mmol/L (21-32); Chloride 104 mmol/L (98-108); Cholesterol 126 mg/dL (0-200); Estimated Glomerular Filt Rate > 60; Glucose 135 mg/dL (70-99); HDL Direct 45 mg/dL (40-60); LDL Cholesterol Calculated 53 mg/dL (<130); Osmolality Calculated 295 mOsm/kg (285-295); Potassium 4.5 mmol/L (3.5-5.1); Sodium 141 mmol/L (136-145); Total Protein 7.3 g/dL (6.4-8.2); Triglycerides 139 mg/dL (0-150)
[2022-09-01 13:57] LABS: NT Pro B Type Natriuretic Pept 92 pg/mL (0-125); Troponin I 13.4 ng/L (0.00-60.4)
== END 2022-09-01 10:03 | disposition home or self-care (01) ==
LOC: CHSLAB 10:04
PROVIDERS: PCP Nurse Practitioner Family; Visit Provider Nurse Practitioner Family
DX: E11.69 Type 2 diabetes mellitus with other specified complication (principal); E78.5 Hyperlipidemia, unspecified; E11.59 Type 2 diabetes mellitus with other circulatory complications; I15.2 Hypertension secondary to endocrine disorders; R00.2 Palpitations; I21.9 Acute myocardial infarction, unspecified; N89.8 Other specified noninflammatory disorders of vagina; R94.31 Abnormal electrocardiogram [ECG] [EKG]; R00.1 Bradycardia, unspecified
CPT/HCPCS: 36415; 80053; 80061; 83880; 84484; 85027; 87070; 87102; 87106; 93005

== ENCOUNTER 2022-09-08 08:15 | Outpatient (CLI) | payer MEDICARE, SELFPAY ==
--- NOTE | 2022-10-03 16:25 | WPDSLEEPSTUD ---
Sleep Study Date of Study: 09/08/22 Ordering Provider: Tulio Gregory APRN Interpreting Physician: Ayaka Ugarte MD Sleep Study Type: Polysomnogram Height: 1.7 m Weight: 66.224 kg Body Mass Index: 22.8 Neck Circumference (inches): 15 [place]: 17 Reason for Sleep Study Hypersomnolence Sleep History Marge Romero is a 67-year-old female Who has complaints of being tired all the time. She wakes up tired. She wakes up frequently throughout the night. She has difficulty falling asleep as well as staying asleep. She rarely awakens from sleep feeling short of breath. She frequently awakens at night with heartburn, belching or coughing. She always snores loudly enough that others complain about it. She occasionally has difficulty sleeping with a cold. She rarely wakes up gasping for breath at night. She constantly has breathing problems at night observed by others. She occasionally sweats excessively night. She frequently notices her heart pounding or beating irregularly at night. She frequently falls asleep during the day, frequently falls asleep involuntarily, never falls asleep while driving. She rarely has loss of muscle tone with strong emotion. She frequently has daytime difficulties due to excessive sleepiness. She does not feel paralyzed on waking or falling asleep but notes that this happened to her in the past. She rarely has vivid dreamlike scenes upon awakening or falling asleep. She rarely feels afraid to go to sleep. She frequently has nightmares. She constantly remembers her dreams. She frequently has racing thoughts. She occasionally feels sad, depressed or anxious. She frequently has muscular tension. She always notices parts of her body jerking, always kicks at night and always has crawling and aching feelings in her legs. She always has leg pain during the night. She rarely has morning jaw pain. She does not grind her teeth at night. She always is bothered by pain during the day. She frequently is awakened by pain at night. She constantly wakes up feeling stiff in the morning with sore achy muscles and pain in the neck and spine. She has memory problems and concentration difficulties. She takes antacids regularly. Normal bedtime is 8:30 p.m., falling asleep within 2-3 hours. She typically wakes 4-5 times during the night, often to go to the bathroom. She may stay awake for 1-2 hours after waking. If she does not return to sleep easily she watches the news on TV or checks the news on her phone. Her wake time is 5:00 a.m.. On weekends, bedtime is still 8:30 p.m., wake time is 6:00 a.m.. She estimates getting only 4-6 hours of sleep at night. She takes naps in the afternoon or evening. A short nap lasting 10 or 15 minutes may be refreshing. She is usually drowsy for 2 hours or longer after waking. She feels better in the morning compared to other times of day. Habits: Tobacco: Quit years ago. Caffeine: 3 cups a day. Alcohol: twice a year. Recreational substances: none PMFSH Past Medical History Medical History Arthritis CAD (coronary artery disease) Depression Diverticulosis DM2 (diabetes mellitus, type 2) Encounter for HCV screening test for low risk patient Finger contusion Food allergy DMITRI (generalized anxiety disorder) GERD (gastroesophageal reflux disease) High cholesterol History of anesthesia reaction Hyperlipidemia Hypertension Mallet finger of right finger(s) Mixed stress and urge urinary incontinence Myocardial infarction May 2018 Seasonal allergies Trigger finger (acquired) Trigger ring finger of right hand Surgical History Surgical History H/O oophorectomy History of coronary artery stent placement History of hand surgery Trigger finger release, ring finger, right hand History of hysterectomy Family History Family History (Reviewed 10/03/22 @ 16
[2022-10-03 17:04] VITALS: BMI 22.8
== END 2022-09-09 07:57 | disposition home or self-care (01) ==
LOC: ANHCSM 08:17
PROVIDERS: PCP Nurse Practitioner Family; Visit Provider Nurse Practitioner Family
DX: G47.33 Obstructive sleep apnea (adult) (pediatric) (principal); G47.61 Periodic limb movement disorder
CPT/HCPCS: 95810

== ENCOUNTER 2022-11-23 14:40 | Outpatient (CLI) | payer MEDICARE, SELFPAY ==
[2022-11-23 15:46] LABS: Influenza A QL RT-PCR Negative (Negative); Influenza B QL RT-PCR Negative (Negative); SARS-CoV-2 RNA PCR Positive (Negative)
== END 2022-11-23 14:41 | disposition home or self-care (01) ==
LOC: CHSLAB 14:42
PROVIDERS: PCP Nurse Practitioner Family; Visit Provider Nurse Practitioner Family
DX: J06.9 Acute upper respiratory infection, unspecified (principal); Z20.822 Contact with and (suspected) exposure to COVID-19
CPT/HCPCS: 87636

== ENCOUNTER 2023-02-02 07:25 | Outpatient (CLI) | payer MEDICARE, SELFPAY ==
--- NOTE | ~2023-02-02 | MM_ITS ---
EXAMINATION: MM screening [facility] BI w [place] HISTORY: Screening mammogram TECHNIQUE: Craniocaudal and mediolateral oblique 3-D tomosynthesis images were obtained and synthetic 2-D images were generated. CAD analysis was submitted and interpreted. COMPARISON: 01/16/2022, 01/07/2021, 12/31/2019 BREAST PARENCHYMAL COMPOSITION: There are scattered areas of fibroglandular density. FINDINGS: No suspicious mass, calcification, or architectural distortion are identified in either janae ast to suggest malignancy. There has been no suspicious interval change. IMPRESSION: 1. No mammographic evidence of malignancy. 2. Recommend routine screening mammography in one year. BI-RADS Category 1: Negative Reviewed, dictated and finalized at location A. DEVELOPER
[2023-02-02 09:00] LABS: Basophils Absolute Auto 0.02 K/mm3 (0.00-0.10); Basophils Percent Auto 0.2 % (0.0-1.0); Eosinophils Absolute Auto 0.13 K/mm3 (0.02-0.50); Hematocrit 40.1 % (35.0-42.0); Hemoglobin 12.7 g/dL (11.7-13.8); Immature Granulocyte Absolute 0.08 K/mm3 (0.00-0.00); Immature Granulocyte Percent A 0.6 % (0.0-0.0); Lymphocytes Absolute Auto 1.36 K/mm3 (1.10-4.50); Lymphocytes Percent Auto 10.4 % (18.0-42.0); Mean Corpuscular HGB Conc 31.7 g/dL (32.0-36.0); Mean Corpuscular Hemoglobin 28.2 pg (27.0-31.0); Mean Corpuscular Volume 88.9 fL (78.0-102.0); Mean Platelet Volume 9.7 fl (9.2-11.8); Monocytes Absolute Auto 0.87 K/mm3 (0.10-0.90); Monocytes Percent Auto 6.6 % (2.0-11.0); Neutrophils Absolute Auto 10.7 K/mm3 (1.7-7.2); Neutrophils Percent Auto 81.2 % (50.0-70.0); Platelet Count Result 330 K/mm3 (150-420); Red Blood Count 4.51 M/mm3 (4.20-5.40); Red Cell Distribution Width 14.9 % (11.6-14.4); White Blood Count 13.1 K/mm3 (4.8-10.8)
[2023-02-02 10:45] LABS: Ferritin 47 ng/mL (8-252)
== END 2023-02-02 07:26 | disposition home or self-care (01) ==
LOC: CHSIMG 07:26
PROVIDERS: PCP Nurse Practitioner Family; Visit Provider Nurse Practitioner Family
DX: Z12.31 Encounter for screening mammogram for malignant neoplasm of breast (principal); M25.551 Pain in right hip; G47.61 Periodic limb movement disorder
CPT/HCPCS: 36415; 77063; 77067; 82728; 85025

== ENCOUNTER 2023-02-03 00:15 | Emergency (ER) | payer MEDICARE, SELFPAY ==
[2023-02-03 00:23] VITALS: BP 137/67; PULSE 72; RESP 20; TEMP 36.7; O2SAT 95
[2023-02-03 03:43] VITALS: BP 150/78; PULSE 66; RESP 18; O2SAT 97
[2023-02-03 04:02] VITALS: BP 139/77; PULSE 74; O2SAT 97
[2023-02-03] MEDS: methocarbamoL 750 MG TABLET PO (05:11)
[2023-02-03] MEDS: ACETAMINOPHEN 500 MG TABLET 1000 MG PO (05:11)
[2023-02-03] MEDS: CELECOXIB 200 MG CAPSULE BY MOUTH (05:12)
[2023-02-03] MEDS: GABAPENTIN 100 MG CAPSULE PO (05:42)
--- NOTE | 2023-02-03 06:32 | ED.GENADULT ---
HPI - General Adult General Chief complaint: Back Pain/Injury Stated complaint: BACK PAIN Time Seen by Provider: 02/03/23 04:08 History of Present Illness HPI narrative: This is a 68-year-old female with history of sciatica presenting with back pain. She has back pain on the right region radiating down the back of her leg. No associated weakness. Feels like sciatica she has had in the past. No fevers, trauma, cancer, urinary retention, bowel incontinence or weakness to the lower extremities. Related Data Home Medications Medication Instructions Recorded Confirmed aspirin 81 mg tablet,delayed 81 mg PO DAILY 01/31/19 09/01/22 release (Adult Low Dose Aspirin) clopidogrel 75 mg tablet (Plavix) 75 mg PO DAILY 01/31/19 09/01/22 dapagliflozin propanediol 10 mg 10 mg PO DAILY 01/31/19 09/01/22 tablet (Farxiga) hydroxyzine HCl 25 mg tablet 25 mg PO TID PRN Itching 01/31/19 09/01/22 metformin 1,000 mg tablet 1,000 mg PO BID 01/31/19 09/01/22 nitroglycerin 0.4 mg sublingual 0.4 mg sublingual PRN PRN Chest 05/09/19 09/01/22 tablet Pain omega-3 fatty acids 1,000 mg 1,000 mg PO BID 05/09/19 09/01/22 capsule (Fish Oil Concentrate) insulin degludec 100 unit/mL (3 20 unit subcut QPM 07/30/20 09/01/22 mL) subcutaneous pen fluticasone propionate 50 1 spray intranasal DAILY PRN 02/11/21 09/01/22 mcg/actuation nasal allergy symptoms spray,suspension (Flonase Allergy Relief) liraglutide 0.6 mg/0.1 mL (18 mg/3 1.8 mg subcut QPM 05/06/21 09/01/22 mL) subcutaneous pen injector semaglutide 0.25 mg or 0.5 mg (2 0.25 mg subcut WEEKLY 09/01/22 09/01/22 mg/1.5 mL) subcutaneous pen injector Allergies Allergy/AdvReac Type Severity Reaction Status Date / Time adhesive Allergy Intermediate unknown Verified 02/03/23 04:03 Iodinated Contrast Media Allergy Intermediate Hives Verified 02/03/23 04:03 Penicillins Allergy Unknown Hives Verified 02/03/23 04:03 IVP dye Allergy Intermediate Hives Uncoded 02/03/23 04:03 PMFSH Past Medical History Medical History Arthritis CAD (coronary artery disease) Depression Diverticulosis DM2 (diabetes mellitus, type 2) Encounter for HCV screening test for low risk patient Finger contusion Food allergy DMITRI (generalized anxiety disorder) GERD (gastroesophageal reflux disease) High cholesterol History of anesthesia reaction Hyperlipidemia Hypertension Mallet finger of right finger(s) Mixed stress and urge urinary incontinence Myocardial infarction May 2018 Seasonal allergies Trigger finger (acquired) Trigger ring finger of right hand Surgical History Surgical History H/O oophorectomy History of coronary artery stent placement History of hand surgery Trigger finger release, ring finger, right hand History of hysterectomy Family History Family History Father Diabetes mellitus Sibling Pancreatic cancer Type 1 diabetes Brother Family history of pancreatic cancer Father Family history of type 2 diabetes mellitus Mother Heart disease Hypertension Polycystic disease of gallbladder Other Arthritis Nerve disorder Social History Social History Smoking packs per day: 1 Smoking cigarettes per day: 20.0 Years smoked: 5 Smoking pack-years: 5.00 Smoking status: Former smoker Tobacco type: cigarettes Smoking end date: 02/26/79 Alcohol intake: current Drinks per week: 0 Alcohol use details: Occasional Substance use: never Living arrangements: with family Additional living arrangements comments: . 2 Children. 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
== END 2023-02-03 07:10 | disposition home or self-care (01) ==
PROVIDERS: Emergency Provider Emergency Medicine; PCP Nurse Practitioner Family
DX: M54.30 Sciatica, unspecified side (principal); I25.10 Atherosclerotic heart disease of native coronary artery without angina pectoris; E11.9 Type 2 diabetes mellitus without complications; E78.5 Hyperlipidemia, unspecified; I10 Essential (primary) hypertension; I25.2 Old myocardial infarction; Z87.891 Personal history of nicotine dependence
CPT/HCPCS: 99283; A9270

== ENCOUNTER 2023-02-09 08:57 | Outpatient (CLI) | payer MEDICARE, SELFPAY ==
[2023-02-09 09:13] LABS: Basophils Absolute Auto 0.02 K/mm3 (0.00-0.10); Basophils Percent Auto 0.3 % (0.0-1.0); Eosinophils Absolute Auto 0.16 K/mm3 (0.02-0.50); Eosinophils Percent Auto 2.7 % (1.0-6.0); Hematocrit 41.1 % (35.0-42.0); Hemoglobin 12.9 g/dL (11.7-13.8); Immature Granulocyte Absolute 0.03 K/mm3 (0.00-0.00); Immature Granulocyte Percent A 0.5 % (0.0-0.0); Lymphocytes Absolute Auto 1.14 K/mm3 (1.10-4.50); Lymphocytes Percent Auto 18.9 % (18.0-42.0); Mean Corpuscular HGB Conc 31.4 g/dL (32.0-36.0); Mean Corpuscular Hemoglobin 27.7 pg (27.0-31.0); Mean Corpuscular Volume 88.4 fL (78.0-102.0); Mean Platelet Volume 9.3 fl (9.2-11.8); Monocytes Absolute Auto 0.55 K/mm3 (0.10-0.90); Monocytes Percent Auto 9.1 % (2.0-11.0); Neutrophils Absolute Auto 4.1 K/mm3 (1.7-7.2); Neutrophils Percent Auto 68.5 % (50.0-70.0); Platelet Count Result 360 K/mm3 (150-420); Red Blood Count 4.65 M/mm3 (4.20-5.40); Red Cell Distribution Width 14.6 % (11.6-14.4)
== END 2023-02-09 08:58 | disposition home or self-care (01) ==
LOC: CHSLAB 09:00
PROVIDERS: PCP Family Medicine; Visit Provider Nurse Practitioner Family
DX: R79.89 Other specified abnormal findings of blood chemistry (principal)
CPT/HCPCS: 36415; 85025

== ENCOUNTER 2023-04-06 07:21 | Outpatient (CLI) | payer MEDICARE, SELFPAY ==
--- NOTE | ~2023-04-06 | US_ITS ---
Ultrasound of the Abdominal Aorta INDICATION: Abdominal aortic aneurysm TECHNIQUE: Grayscale, color Doppler, and pulsed Doppler images of the aorta and common iliac arteries were obtained. COMPARISON: None. FINDINGS: Maximum vascular dimensions are as follows: Proximal aorta: 2.3 cm Mid aorta: 2.0 cm Distal aorta: 1.7 cm Right common iliac artery: 1.2 cm Left common iliac artery: 1.3 cm There is no evidence of abdominal aortic aneurysm. IMPRESSION: No abdominal aortic aneurysm. Reviewed, dictated and finalized at location M. OWS ASSEMBLER
== END 2023-04-06 07:22 | disposition home or self-care (01) ==
LOC: CHSIMG 07:22
PROVIDERS: PCP Nurse Practitioner Family; Visit Provider Nurse Practitioner Family
DX: Z13.6 Encounter for screening for cardiovascular disorders (principal); Z82.49 Family history of ischemic heart disease and other diseases of the circulatory system
CPT/HCPCS: 76706

== ENCOUNTER 2023-04-11 08:00 | Outpatient (RCR) | payer MEDICARE, SELFPAY | END 2023-04-11 10:00 | disposition home or self-care (01) | PROVIDERS: PCP Nurse Practitioner Family | DX: I25.10 Atherosclerotic heart disease of native coronary artery without angina pectoris (principal); Z95.5 Presence of coronary angioplasty implant and graft | CPT/HCPCS: 93798 ==

== ENCOUNTER 2023-05-07 13:14 | Outpatient (CLI) | payer MEDICARE, SELFPAY ==
--- NOTE | ~2023-05-07 | DEXA_ITS ---
Bone Density Report Name: MYRA BURGESS Age: 68 Sex: Female Ethnicity: White Date of : 1955 Indication: postmenopausal; screening for osteoporosis; height loss; inflammatory bowel disease; hysterectomy; Referring Provider: JOSIANE BEAULIEU Study: Bone densitometry was performed. Exam Date: May 07, 2023 Accession number: [id number] Bone Density: Region BMD T-score Z-score Classification AP Spine(L3, L4) 1.144 0.4 2.6 Normal Femoral Neck (Left) 0.568 -2.5 -0.8 Osteoporosis Total Hip (Left) 0.757 -1.5 -0.1 Osteopenia Femoral Neck (Right) 0.667 -1.6 0.1 Osteopenia Total Hip (Right) 0.747 -1.6 -0.1 Osteopenia Femoral Neck Mean 0.617 -2.1 -0.3 Osteopenia Total Hip Mean 0.752 -1.6 -0.1 Osteopenia World Health Organization criteria for BMD impression classify patients as: Normal (T-score at or above -1.0), Osteopenia (T-score between -1.0 and -2.5), or Osteoporosis (T-score at or below -2.5). 10-year Fracture Risk: FRAX not reported because: Some T-score for Spine Total or Hip Total or Femoral Neck at or below -2.5 Clinical Information Provided by Patient: Has used the following medications: Reclast (i.e. zoledronate), Vitamin D, mag Has the following medical conditions: Inflammatory bowel diseases, Hysterectomy Patient maximum height was 67 Menopause Age: 38 No regular weight bearing exercise Does not regularly consume dairy products Drinks caffeinated beverages Onset of menses at age 15 Number of children 2 Impression: The patient has osteoporosis, based on the Left Femoral Neck T-score. Discussion: INCREASED RISK OF FRACTURE. BONE DENSITY IS UNDESIRABLY LOW AT ONE OR MORE SKELETAL SITES, CONSISTENT WITH POSTMENOPAUSAL OSTEOPOROSIS. This patient's lowest T-score meets the World Health Organization's (WHO) criteria for osteoporosis at one or more sites (T-score -2.5 or below). In untreated patients, the risk of osteoporotic fracture increases approximately two-fold for each 1.0 SD decrease in T-score. Low bone density is not the only risk factor for fracture; also consider factors such as patient's age, frailty or poor health, risk of falling, risk of injury, previous osteoporotic fracture, family history of osteoporosis, cigarette smoking, low body weight, etc. Not everyone with low bone mineral density has osteoporosis; osteomalacia and other metabolic bone disorders should also be considered. Patients who have osteoporosis should be evaluated for specific diseases and conditions (secondary causes) that may cause or contribute to bone loss. The [place] Association [employer] Clinical Endocrinologists (AACE) and National Osteoporosis Foundation (NOF) recommend pharmacologic intervention for all postmenopausal women whose T-score is in this range. The patient should follow a healthf
== END 2023-05-07 13:15 | disposition home or self-care (01) ==
LOC: CHSIMG 13:15
PROVIDERS: Absent Provider Obstetrics & Gynecology; PCP Nurse Practitioner Family; Visit Provider Nurse Practitioner Family
DX: Z78.0 Asymptomatic menopausal state (principal); M85.89 Other specified disorders of bone density and structure, multiple sites; M81.0 Age-related osteoporosis without current pathological fracture
CPT/HCPCS: 77080

== ENCOUNTER 2023-06-01 08:28 | Outpatient (CLI) | payer MEDICARE, SELFPAY ==
[2023-06-01 08:51] VITALS: BP 135/69; PULSE 68; RESP 14; TEMP 36.6; O2SAT 99; BMI 22.7
[2023-06-01] MEDS: ZOLEDRONIC ACID 5 MG/100 ML 100 ML 400 MG IVPB (09:00)
--- NOTE | 2023-06-01 09:29 | PC.NURSE ---
Patient here for yearly IV Reclast. Education given. No concerns voiced. Infusion administered. SEE MAR. Tolerated well. Safe exit of hospital per self/ambulatory.
[2023-06-05 20:46] LABS: Vitamin D 25 Hydroxy 80 ng/mL (30-100)
== END 2023-06-01 08:29 | disposition home or self-care (01) ==
PROVIDERS: PCP Nurse Practitioner Family; Visit Provider Nurse Practitioner Family
DX: M81.0 Age-related osteoporosis without current pathological fracture (principal)
CPT/HCPCS: 36415; 82306; 82310; 96374; J3489

== ENCOUNTER 2023-09-28 12:53 | Outpatient (CLI) | payer MEDICARE, SELFPAY ==
[2023-09-28 13:21] LABS: Creatinine Urine 113.66 mg/dL (40-278); MALB Creatinine Ratio 11.4 mg/g (0-30); Microalbumin Urine Random < 13.0 mg/L
== END 2023-09-28 12:54 | disposition home or self-care (01) ==
PROVIDERS: PCP Nurse Practitioner Family
DX: E11.65 Type 2 diabetes mellitus with hyperglycemia (principal); Z79.4 Long term (current) use of insulin
CPT/HCPCS: 82043

== ENCOUNTER 2024-01-19 09:54 | Outpatient (CLI) | payer MEDICARE, SELFPAY ==
--- NOTE | ~2024-01-19 | MR_ITS ---
EXAMINATION: MR hip LT wo con DATE: 01/19/2024 11:56 INDICATION: Left hip pain. TECHNIQUE: Magnetic resonance imaging (MRI) of the left hip was performed without intravenous contras t. COMPARISON: Pelvis radiograph 02/11/2021 FINDINGS: Bones/cartilage: There is lumbar dextroscoliosis and severe spondylosis. No fracture. The hip joints demonstrate tiny osteophytes. Small [id number] images of left hip joint demonstrate partial-thickness cartilage los s. Labrum: The left acetabular labrum is intact. Fluid: There is a small left hip joint effusion. No trochanteric bursitis. Soft tissues: There is mild tendinopathy of the hamstring origins bilaterally. The iliopsoas tendons are normal. Th e gluteus minimus and gluteus medius tendons are normal. IMPRESSION: 1. Mild osteoarthritis of the hips. 2. Small left hip joint effusion. Reviewed, dictated and finalized at location A. SCHOOL COMPUTER SCIENCE TEACHER
== END 2024-01-19 09:55 | disposition home or self-care (01) ==
LOC: CHSIMG 09:55
PROVIDERS: PCP Nurse Practitioner Family; Visit Provider Nurse Practitioner Family
DX: R20.0 Anesthesia of skin (principal); R20.2 Paresthesia of skin; M25.559 Pain in unspecified hip; M16.0 Bilateral primary osteoarthritis of hip; M25.452 Effusion, left hip
CPT/HCPCS: 73721

== ENCOUNTER 2024-01-30 17:33 | Outpatient (CLI) | payer MEDICARE, SELFPAY ==
--- NOTE | ~2024-01-30 | XR_ITS ---
XR hip BI 2V w AP pelvis Ordering provider: rFench Browning DO History: . M25.559 - Pain in unspecified hip . Comparison: None FINDINGS: BONES: No acute fracture or dislocation. HIP JOINT SPACES: Mild to moderate osteoarthritic changes of both hips. SACROILIAC JOINT SPACES/LUMBAR SPINE: The sacroiliac joint spaces are normal. Mild degenerative subramanian es of the visualized lower lumbar spine. PUBIC SYMPHYSIS: Normal. SOFT TISSUES: Normal. IMPRESSION: No acute osseous abnormality of the bilateral hips and pelvis. Reviewed, dictated and finalized at location A. RGLASS MODEL MAKER
== END 2024-01-30 17:34 | disposition home or self-care (01) ==
LOC: CHSIMG 17:35
PROVIDERS: PCP Family Medicine; Visit Provider Family Medicine
DX: M25.559 Pain in unspecified hip (principal)
CPT/HCPCS: 73521

== ENCOUNTER 2024-02-22 12:38 | Outpatient (CLI) | payer MEDICARE, SELFPAY ==
--- NOTE | ~2024-02-22 | MM_ITS ---
EXAMINATION: MM screening [facility] BI w [place] HISTORY: Screening TECHNIQUE: Craniocaudal and mediolateral oblique 3-D tomosynthesis images were obtained and synthetic 2-D images were generated. CAD analysis was submitted and interpreted. COMPARISON: 02/02/2023 and dating back to 12/31/2019 BREAST PARENCHYMAL COMPOSITION: There are scattered areas of fibroglandular density. FINDINGS: Punctate and bulky calcifications are detected bilaterally, stable and benign in appearance . Stable parenchymal pattern without suspicious microcalcifications, architectural distortion, discrete masses or significant asymmetry. IMPRESSION: 1. No mammographic evidence of malignancy. 2. Recommend routine screening mammography in one year. BI-RADS Category 2: Benign finding(s). Reviewed, dictated and finalized at location A. PRODUCTION WORKER
== END 2024-02-22 12:39 | disposition home or self-care (01) ==
LOC: CHSIMG 12:40
PROVIDERS: PCP Nurse Practitioner Family; Visit Provider Nurse Practitioner Family
DX: Z12.31 Encounter for screening mammogram for malignant neoplasm of breast (principal)
CPT/HCPCS: 77063; 77067

== ENCOUNTER 2024-04-11 11:26 | Outpatient (CLI) | payer MEDICARE, SELFPAY ==
--- OUTSIDE RECORDS SUMMARY | 2024-04-11 11:36 | XMS_ITS | Clinical Summary ---
Author Organization [facility] Address [facility] [place] [address] Care Team Providers Care Supervisor Dried Yeast Name Role Phone Bertin Langford MD Primary Care Provider [phone] Social History Tobacco Use Types Packs/Day Years Used Date Smoking Tobacco: Never Assessed Comments Unknown Sex and Gender Information Value Date Recorded Sex Assigned at Not on file Legal Sex Female 10:55 PM CDT Gender Identity Not on file Sexual Orientation Not on file Plan of Treatment Health Maintenance Due Date Last Done Comments Colorectal Cancer Screening Colonoscopy (10 Years) 1955 Hepatitis C 02/01/1972 DTaP, Tdap and Td Vaccines ( 1 - Tdap) 1973 Mammogram Screening 1994 Zoster Vaccines (1 of 2) 02/01/2004 Dexa Scan (General) 2019 Pneumococcal Vaccine: 65+ Ye ars (1 of 1 - PCV) 2019 COVID-19 Vaccine (2023-2 5 season) 2023 Influenza Adult (#1) 2023 RSV Immunization or 60+ Years (1 - 1-dose 75+ series) 2029 Meningococcal B Vaccine Aged Out No l onger eligible based on patient's age to complete this topic Meningococcal Vaccine Aged Out No juana summer eligible based on patient's age to complete this topic RSV Immunizations Under 20 Months Aged Out No longer eligible based on patient's age to complete this topic Insurance [facility] Care Teams Supervisor Dried Yeast Relationship Specialty Start Date End Date Bertin Langford MD [address] [place] [address] PCP - General FAMILY PRACTICE 10/02/18
--- OUTSIDE RECORDS SUMMARY | 2024-04-11 11:36 | XMS_ITS | Clinical Summary ---
Author Organization [employer] [id number] [facility] Address [address] [address] [place] [address] Care Team Providers Care Manager Garden Name Role Phone Trisha Kay ORTHODONTIC LAB TECHNICIAN Primary Care Provider [phone] Allergies Active Allergy Reactions Criticality Noted Date Comments Adhesive Rash Low 07/26/2021 Ioversol Hives High 06/21/2021 Penicillins Other (See Comments) 06/21/2021 Medications atorvastatin (LIPITOR) 40 mg tablet TAKE 1 TABLET BY MOUTH EVERY DAY AT NIGHT 1 Active Blood-Glucose Meter Use to check bg daily as directed contour meter 0 Active cholecalciferol , Vitamin D3, (VITAMIN D3) 25 mcg (1,000 unit) Capsule Take 1,000 Units by mouth daily. Active clopidogreL (PLAVIX) 75 mg Tablet Take 1 Tablet by mouth daily. 2 Active dapagliflozin (FARXIGA) 10 mg Tablet Take 1 Tablet by mouth daily. 2 Active insulin degludec (Tresiba FlexTouch U-100) 100 unit/mL pen syringe INJECT 20 UNITS TOTAL UNDER THE SKIN NIGHTLY 2 Active lisinopriL (PRINIVIL) 20 mg tablet Take 20 mg by mouth daily. 1 Active metFORMIN (GLUCOPHAGE) 1,000 mg tablet Take 1 Tablet by mouth 2 times daily with meals. 2 Active nitroglycerin (NITROSTAT) 0.4 mg Tablet, Sublingual Place 0.4 mg under tongue. 9 Active omega 8-ATN-one-fish oil 300-1,000 mg Capsule, Delayed Release(E.C.) Take 2 Capsules by mouth 2 times daily. Active sertraline (ZOLOFT) 100 mg tablet Take 100 mg by mouth daily. 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 Active multivitamin (DAILY-PAPO) tablet Take 1 Tablet by mouth daily. Active IRON, FERROUS SULFATE, ORAL Take 65 mg by mouth. Active celecoxib (CeleBREX) 100 mg capsule 2 Active semaglutide 0.25 mg or 0.5 mg(2 mg/1.5 mL) Pen Injector Inject 0.5 mg by subcutaneous injection every 7 days. Sunday 3 Active gabapentin (NEURONTIN) 100 mg capsule Take 1 Capsule (100 mg) by mouth 3 times daily. 90 Capsule 3 Active metoprolol tartrate (LOPRESSOR) 50 mg tablet Take 50 mg by mouth 2 times daily. 3 Active amLODIPine (NORVASC) 10 mg tablet 3 Active Active Problems Problem Noted Date Diagnosed Date Age-related osteoporosis wit hout current pathological fracture 04/20/2023 Encounters Date Type Department Care Team Description 03/20/2024 External Device Data [facility] ABSTRACTION Provider, Abstract 03/18/2024 External Device Data [facility] ABSTRACTION Provider, Abstract 03/11/2024 External Device Data [facility] ABSTRACTION Provider, Abstract 01/15/2024 External Device Data [facility] ABSTRACTION Provider, Abstract from Last 3 Months Social History Tobacco Use Types Packs/Day Years Used Date Smoking Tobacco: Former Cigarettes Q uit: 05/27/1969 Passive Smoke Exposure: Never Smokeless Tobacco: Never Alcohol Use Standard Drinks/Week Comments Not Currently 0 (1 standard drink = 0.6 oz pur e alcohol) Comments No Sex and Gender Information Value Date Recorded Sex Assigned at Not on file Legal Sex Female 1:48 PM CDT Gender Identity Not on file Sexual Orientation Not on file Last Filed Vital Signs Vital Sign Reading Time Taken Comments Blood Pressure 122/82 04/20/2023 10:50 AM CAVING GUIDE Pulse - - Temperature - - Respiratory Rate - - Oxygen Saturation - - Inhaled Oxygen Concentration - - Weight 67.9 kg (149 lb 12.8 oz) 024 10:50 AM CAVING GUIDE Height 167.6 cm (5' 6 ) 04/20/2023 10:5 0 AM CAVING GUIDE Body Mass Index 24.18 04/20/2023 10:50 AM CAVING GUIDE Plan of Treatment Health Maintenance Due Date Last Done Comments DIABETES MICROALBUMIN ANNUAL SCREEN 02/01/1972 LDL CHOLESTEROL ANNUAL 02/01/1972 DTAP/TDAP/TD VACCINES (1 - Tdap) 1973 PNEUMOCOCCAL VACCINE 65+ YEA RS (1 of 2 - PCV) 1973 BREAST CANCER SCREENING 1994 FIT-DNA Q 3 years 1999 FIT/FOBT Q 1 year 1999 Flex Sig/CT Colonography Q 5 years 1999 ZOSTER VACCINE (1 of 2) 02/01/2004 RSV VACCINE (60+ or ) (1 - Risk 60-74 years 1-dose series) 2014 DIABETES ANNUAL FOOT EXAM 12/29/2022 12/29/2021 DIABETES HBA1C Q 6 MONTHS 05/11/20232022, 06/13/2022, 12/29/2021, Additional history exists INFLUENZA VACCINE (#1) 2023 DIABETES ANNUAL RETINAL EXAM 04/29/202405/2023, 04/30/2023, 04/24/2022, Additional history exists COLORECTAL SCREENING 02/04/2032 02/03/2022, 02/03/2022, 02/03/2022 Colorectal Cancer Screening 02/04/2032 OSTEOPOROSIS SCREENING Completed , 05/14/2020, 05/14/2020 Procedures Procedure Name Priority Date/Time Associated Diagnosis Comments [facility] DXA BONE DENSITY STUDY 1/> SITES AXIAL SKEL Routine 05/07/2023 2:01 PM CDT from Last 3 Months or Most Recently Relevant to Health Maintenance Results * [facility] DXA BONE DENSITY STUDY 1/> SITES AXIAL SKEL (05/07/2023 2:01 PM CDT) us Gage Noriega MD MA - IMAGING Edited Resul t - Final [facility] CUST[employer]ER ACCOUNTS ADVISOR RAINE ESPOSITO [id number] CLIA# [id number] [address] [place] [address] from Last 3 Months or Most Recently Relevant to Health Maintenance Insurance MEDICARE PART A AND B [employer] MED[employer]ARE SUPPLEMENT Care Teams Manager Garden Relationship Specialty Start Date End Date Trisha Kay FNP [address] [place] [address] PCP - General Nurse Practitioner Family 05/20/21
--- OUTSIDE RECORDS SUMMARY | 2024-04-11 11:36 | XMS_ITS | Referral Summary ---
Author Organization [facility] Address [address] [place] [address] Care Team Providers Care Home Paraprofessional Name Role Phone Delmer Gsos MD Unavailable Alejandro Wagner MD Unavailable French Browning DO Primary Care Provider Encounters Date Type Department Care Team Description 03/17/2024 Telephone [facility] [address] [address] Delmer Goss MD PA in [facility] Ozempic 02/15/2024 10:51 AM DELIVERY TRUCK DRIVER - 02/15/2024 11:59 PM DELIVERY TRUCK DRIVER Hospital Encounter [address] [address] Type 2 diabetes mellitus with hyperglycemia, with long-term current use of insulin (HCC) Discharge Disposition: Discharge to home or self care 02/15/2024 9:00 AM DELIVERY TRUCK DRIVER Office Visit [facility] [address] [address] Delmer Goss MD Type 2 diabetes mellitus with hyperglycemia, with long-term current use of insulin (HCC) (Primary Dx); Hypertension associated with diabetes (HCC) 02/08/2024 11:15 AM DELIVERY TRUCK DRIVER Office Visit [facility] [address], [place] [address] Dylan Mosley MD Coronary artery disease involving telida coronary artery of 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 pectoris (Primary Dx); S/P drug eluting coronary stent placement; Hypertension associated with diabetes (HCC); Hyperlipidemia associated with type 2 diabetes mellitus (HCC) from Last 3 Months Allergies Active Allergy Reactions Criticality Noted Date Comments Adhesive Ioversol Hives Medium Penicillins Medications lancets misc check BG qid 200 each 6 1 Active nitroglycerin (NITROSTAT) 0.[address] 1 tablet (0.4 mg total) under the tongue every 5 (five) minutes as needed for chest pain May repeat dose q 5 min, up to 3 doses total 30 tablet 2 9 Active [id number] -fish oil 300-1,000 mg capsule,delayed release(DR/EC) Take 2 capsules by mouth 2 (two) times a day Active cholecalciferol (VITAMIN D-3) 1,000 unit Take 1 tablet/capsule (1,000 Units total) by mouth daily Active blood-glucose meter miscIndications :Type 2 diabetes mellitus with hyperglycemia, with long-term current use of insulin (HCC) Use to check bg daily as directed contour meter 1 each 0 Active atorvastatin (LIPITOR) 40 mg tablet TAKE 1 TABLET BY MOUTH EVERY DAY AT NIGHT 90 tablet 3 1 Active fluticasone propionate (FLONASE ALLERGY RELIEF NASL) 1 Active lisinopriL (PRINIVIL,ZESTR IL) 20 mg tabletIndicatio ns:cardiovascul ar disease Take 1 tablet (20 mg total) by mouth daily 90 tablet 3 1 Active cetirizine (ZyrTEC) 10 mg tablet Take 1 tablet (10 mg total) by mouth daily Active celecoxib (CeleBREX) 100 mg capsule 2 Active gabapentin (NEURONTIN) 100 mg capsule 2 Active multivitamin tablet Take 1 tablet by mouth daily Active pen needle, diabetic (Sure-Fine Pen [place]) 31 gauge x 5/16 needle Use to inject insulin 4 times daily. 400 each 3 3 Active aspirin 81 mg enteric coated tablet Take 1 tablet (81 mg total) by mouth daily Active fluconazole (DIFLUCAN) 150 mg tablet 3 Active metoprolol tartrate (LOPRESSOR) 50 mg immediate release tablet TAKE 1 TABLET BY MOUTH TWICE A DAY 180 tablet 3 4 Active amLODIPine (NORVASC) 10 mg tablet 3 Active Contour Next Test Strips stripIndication s:Type 2 diabetes mellitus with hyperglycemia, with long-term current use of insulin ([facility]) USE TO TEST BLOOD SUGARS 3 TIMES DAILY DX:E11.65 insulin dependent 300 strip 3 4 Active metFORMIN (GLUCOPHAGE) 1,000 mg tablet TAKE 1 TABLET BY MOUTH TWICE A DAY WITH FOOD 180 tablet 3 4 Active insulin degludec (TRESIBA) 100 unit/mL (3 mL) pen for injectionIndica tions:Type 2 diabetes mellitus with hyperglycemia, with long-term current use of insulin ([facility]) INJECT 20 UNITS TOTAL UNDER THE SKIN NIGHTLY 15 mL 3 4 Active Farxiga 10 mg tabletIndicatio ns:Type 2 diabetes mellitus with hyperglycemia, with long-term current use of insulin ([facility]) TAKE 1 TABLET BY MOUTH EVERY DAY 90 tablet 1 4 Active clopidogreL (PLAVIX) 75 mg tablet TAKE 1 TABLET BY MOUTH EVERY DAY 90 tablet 4 Active buPROPion XL (WELLBUTRIN XL) 150 mg 24 hr tablet Take 1 tablet (150 mg total) by mouth every morning 4 Active semaglutide (OZEMPIC) 1 mg/dose (4 mg/3 mL) pen injector injection Inject 1 mg under the skin every 7 days 3 mL 11 4 Active Active Problems Problem Noted Date Diagnosed Date Abdominal pain 09/05/2020 Assessment & Plan (09/05/2020 7:12 AM CDT): She had moderately severe left and upper abdominal pain recently. She did not seek medical help. She has had previous episodes of diverticulitis. The suspicion is that this may have been a mild episode. Currently, she is without pain or tenderness. Will check CBC and CMP. She was advised to call if the pain reoccurs. Meanwhile advised to consume high-fiber diet. History of colonic polyps 09/05/2020 Assessment & Plan (09/05/2020 7:11 AM CDT): The most recent colonoscopy was in 2017. A tubular adenoma was removed from the ascending colon. Follow-up surveillance colonoscopy is recommended in 2021. A reminder will be sent to her at the time. Constipation 09/05/2020 Assessment & Plan (09/05/2020 7:14 AM CDT): Recent onset. May have been related to the mild episode of acute diverticulitis. Doing better at this time. Advised to consume high-fiber diet and augment water consumption. Diverticulitis 09/05/2020 Assessment & Plan (09/05/2020 7:15 AM CDT): Mild. Appears to be recurrent. The time of evaluation the patient does not have pain any more and is nontender. Will check CBC and CMP. Advised to call if pain reoccurs. High-fiber diet. Coronary artery disease invo lving telida coronary artery of 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 pectoris 07/17/2018 Assessment & Plan (01/08/2023 2:33 PM DELIVERY TRUCK DRIVER): Stable status post recent repeat stenting of the LAD, without recurrence of angina. Left ventricular function is normal. I made no change in her excellent medical regimen today. I asked her to follow up with me annually, or sooner if needed. I again advised her to continue to diet and exercise regularly. She will continue in cardiac rehab. Assessment & Plan (06/16/2022 10:40 AM CDT): Stable, without angina. I made no change in her excellent medical regimen today. I asked her to follow up with me annually, or sooner if needed. I again advised her to diet and exercise regularly. Assessment & Plan (06/13/2021 11:14 AM CDT): Stable, without angina. I made no change in her excellent medical regimen today. I asked her follow up with me annually, or sooner if needed. I again advised her to diet and exercise regularly. Assessment & Plan (04/26/2020 3:45 PM DELIVERY TRUCK DRIVER): Stable, without angina. I made no change in her excellent medical regimen today. I asked her to follow up with me annually, sooner if needed. I again advised her to diet and exercise regularly. Assessment & Plan (04/28/2019 3:47 PM DELIVERY TRUCK DRIVER): Stable, without angina. I made no change in her excellent medical regimen today. I asked her follow up with me annually, or sooner if needed. I again advised her to diet and exercise regularly. Assessment & Plan (10/21/2018 4:03 PM CDT): Stable, without angina status post recent stenting of the mid LAD. Left ventricular function is well preserved. I made no change in her excellent medical regimen today. I asked her to follow up with me in 6 months, or sooner if needed. I again advised her to diet and exercise regularly. She will continue in cardiac rehab. Assessment & Plan (08/30/2018 11:54 AM CDT): Chest pain evaluation as above. Continue aspirin 81, plavix, lipitor, metoprolol. Discussed diet/exercise and diligent control of DM which her belt sewer manages. Assessment & Plan (07/18/2018 2:37 PM CDT): Stable status post recent stenting of the obtuse marginal branch with preserved left ventricular function. I made no change in her excellent medical regimen today. I asked her to follow up with me in 6 months, or sooner if needed. I again advised her to diet and exercise regularly. Essential hypertension, benign 07/17/2018 Assessment & Plan (01/08/2023 2:33 PM DELIVERY TRUCK DRIVER): Well controlled. Continue same therapy. Continue diet and exercise. Assessment & Plan (06/16/2022 10:40 AM CDT): Blood pressure is well controlled. Continue same therapy. Continue diet and exercise. Assessment & Plan (06/13/2021 11:15 AM CDT): Blood pressure is well controlled. Continue same therapy. Continue diet and exercise. Assessment & Plan (04/26/2020 3:45 PM DELIVERY TRUCK DRIVER): Blood pressure is well controlled. Continue same therapy. Continue diet and exercise. Assessment & Plan (10/21/2018 4:03 PM CDT): Blood pressure is well controlled. Continue same therapy. Continue diet and exercise. Her blood pressure will be monitored in cardiac rehab. Assessment & Plan (08/30/2018 11:02 AM CDT): BP nicely controlled. Continue lisinopril, metoprolol. Assessment & Plan (07/18/2018 2:37 PM CDT): Blood pressure is extremely well controlled. Continue same therapy. Continue diet and exercise. Hyperlipidemia associated with type 2 diabetes emilia poe 10/17/2017 Assessment & Plan (08/06/2023 4:17 PM CDT): Chronic, stable Continue 40 mg daily Assessment & Plan (01/08/2023 2:34 PM DELIVERY TRUCK DRIVER): Well controlled. Continue high-intensity statin therapy. Assessment & Plan (11/10/2022 10:42 AM CDT): Chronic problem. Controlled on current Atorvastatin 40mg. Last lipid panel: 12/29/21 LDL=60, HA=149. Assessment & Plan (12/29/2021 3:37 PM CDT): Chronic problem. On statin therapy, no changes. Assessment & Plan (06/21/2021 3:46 PM CDT): Chronic, well controlled Low fat Low cholesterol diet Exercise Continue statin therapy Assessment & Plan (12/17/2020 11:25 AM CDT): Lipids goal, LDL under 80 Non HDL under 100 On Lipitor Check lipid profile Assessment & Plan (06/03/2020 3:58 PM CDT): Goal of treatment , LDL cholesterol less than 100 ( less than 70 in patients with history of heart attacks and / or strokes ) NonHDL cholesterol ( total cholesterol minus HDL cholesterol ) goal less than 130 ( less than 100 in patients with history of heart attacks and / or strokes ) Low cholesterol, low fat diet was discussed and advised. Daily exercise On statin therapy with Lipitor Assessment & Plan (11/25/2019 3:43 PM CDT): Goal of treatment , LDL cholesterol less than 100 ( less than 70 in patients with history of heart attacks and / or strokes ) NonHDL cholesterol ( total cholesterol minus HDL cholesterol ) goal less than 130 ( less than 100 in patients with history of heart attacks and / or strokes ) Low cholesterol, low fat diet was discussed and advised. Daily exercise On statin therapy Assessment & Plan (05/01/2019 4:15 PM DELIVERY TRUCK DRIVER): Goal of treatment , LDL cholesterol less than 100 ( less than 70 in patients with history of heart attacks and / or strokes ) NonHDL cholesterol ( total cholesterol minus HDL cholesterol ) goal less than 130 ( less than 100 in patients with history of heart attacks and / or strokes ) Low cholesterol, low fat diet was discussed and advised. Daily exercise On statin therapy Lipitor Assessment & Plan (04/28/2019 3:47 PM DELIVERY TRUCK DRIVER): Lipids are very well controlled. Continue high-intensity statin therapy. Assessment & Plan (10/23/2018 4:10 PM CDT): Goal of treatment , LDL cholesterol less than 100 ( less than 70 in patients with history of heart attacks and / or strokes ) NonHDL cholesterol ( total cholesterol minus HDL cholesterol ) goal less than 130 ( less than 100 in patients with history of heart attacks and / or strokes ) Low cholesterol, low fat diet was discussed and advised. Daily exercise On statin therapy Assessment & Plan (04/24/2018 4:31 PM DELIVERY TRUCK DRIVER): Goal of treatment , LDL cholesterol less than 100 ( less than 70 in patients with history of heart attacks and / or strokes ) NonHDL cholesterol ( total cholesterol minus HDL cholesterol ) goal less than 130 ( less than 100 in patients with history of heart attacks and / or strokes ) Low cholesterol, low fat diet was discussed and advised. Daily exercise On statin therapy Assessment & Plan (01/27/2018 11:11 AM DELIVERY TRUCK DRIVER): Check lipid panel and adjust statin accordingly Type 2 diabetes mellitus wit h hyperglycemia, with long-term current use of insulin 07/02/2013 Overview (06/02/2016): DMII WO CMP UNCNTRLD Assessment & Plan (02/15/2024 11:04 AM DELIVERY TRUCK DRIVER): Chronic, not at goal with higher A1c Importance of diet and exercise was discussed Continue Farxiga 10 mg daily, Tresiba 20 units daily and metformin Increase semaglutide from 0.5 to 1 mg weekly Assessment & Plan (08/06/2023 4:16 PM CDT): Chronic, not at goal Diet and exercise were advised. Continue Ozempic 0.5 mg weekly Farxiga 10 mg daily Metformin 1000 mg bid Tresiba 20 units daily Assessment & Plan (11/10/2022 10:56 AM CDT): Chronic problem. A1c improved from 7.9% to now 7.0%. Current medications: Metformin 1000mg twice daily with meals Farxiga 10mg daily Tresiba 20 units at bedtime Ozempic 0.5mg weekly UTD on DM eye exam. UTD on labs. Strive for regular exercise (30min most days) and diet (get at least 4-5 servings of fruit and veggies daily, avoid processed foods, increase lean protein intake and decrease carb portions as well as fruit juices, regular soda & desserts). Watch carbs and simple sugars. Check the blood sugar daily. Check the feet daily for skin breakdown and infection. Assessment & Plan (06/13/2022 4:03 PM CDT): Hba1c was Lab Results Component Value Date HGBA1C 7.9 06/13/2022 today, indicating inadequate , worsening DM control Goal Hba1c and blood glucose explained Diet and exercise were advised Prevention and treatment of hyypoglcyemia were discussed with the patient Blood glucose monitoring : start CGM with FSL Rx sent Adjustment to medications: Hold Victoza Will try Ozempic Samples were provided Pt to call in 3-4 wks, to let me know how it is working. Continue Farxuga and Tresiba as well as Metformin Assessment & Plan (12/29/2021 3:39 PM CDT): Chronic problem, still in reasonable range per A1c given age >65 and insulin use. She has though typically run >7% for years and this is very frustrating for her. We discussed lifestyle at length and small changes she can make which she'll work on. She is on antidepressants but counseling may also be beneficial as it seems she has a lot of burnout where diabetes is concerned. Update routine labs today. Assessment & Plan (06/21/2021 3:46 PM CDT): Hba1c was Lab Results Component Value Date HGBA1C 7.2 06/21/2021 today, indicating suboptimal DM control Goal Hba1c and blood glucose explained Diet and exercise were advised Prevention and treatment of hyypoglcyemia were discussed with the patient Blood glucose monitoring : Twice a day Adjustment to medications: Continue current Patient to focus on diet and exercise Assessment & Plan (12/17/2020 11:25 AM CDT): Hba1c was Lab Results Component Value Date HGBA1C 6.9 12/17/2020 today, indicating adequate DM control Goal Hba1c and blood glucose explained Diet and exercise , discussed Prevention and treatment of hyypoglcyemia discussed. Blood glucose monitoring : 2 X day Adjustment to oral medications: continue current Assessment & Plan (06/03/2020 3:58 PM CDT): Hba1c was Lab Results Component Value Date HGBA1C 6.9 06/03/2020 today, indicating adequate DM control Goals blood sugars of 120-160 and Hba1c under 7 % was explained. 1800 calorie, consistent carb diet recommended, no more than 3-45 grams of carbs per meal, avoiding concentrated sweet drinks and rapid absorption carbs. 25-45 min daily aerobic and resistance exercise recommended Prevention and treatment of hyypoglcyemia discussed. Blood glucose monitoring with fingers sticks. Continue current regimen Assessment & Plan (11/25/2019 3:42 PM CDT): Hba1c was Lab Results Component Value Date HGBA1C 6.9 11/25/2019 today, indicating adequate DM control 1800 calorie, consistent carb diet recommended, no more than 3-45 grams of carbs per meal, avoiding concentrated sweet drinks and rapid absorption carbs. 25-45 min daily aerobic and resistance exercise recommended Prevention and treatment of hyypoglcyemia discussed. Blood glucose monitoring with fingers sticks Medications: continue current Assessment & Plan (05/01/2019 4:14 PM DELIVERY TRUCK DRIVER): Hba1c was Lab Results Component Value Date HGBA1C 6.5 05/01/2019 today, indicating adequate DM control 1800 calorie, consistent carb diet recommended, no more than 3-45 grams of carbs per meal, avoiding concentrated sweet drinks and rapid absorption carbs. 25-45 min daily aerobic and resistance exercise recommended Prevention and treatment of hyypoglcyemia discussed. Blood glucose monitoring with fingers sticks. Medications: continue current regimen Assessment & Plan (10/23/2018 4:10 PM CDT): Hba1c was Lab Results Component Value Date HGBA1C 6.3 10/23/2018 today, indicating adequate DM control 1800 calorie, consistent carb diet recommended, no more than 3-45 grams of carbs per meal, avoiding concentrated sweet drinks and rapid absorption carbs. 25-45 min daily aerobic and resistance exercise recommended Prevention and treatment of hyypoglcyemia discussed. Blood glucose monitoring with fingers sticks.... Lower Basaglar to 15 untis Assessment & Plan (04/24/2018 4:31 PM DELIVERY TRUCK DRIVER): Hba1c was Lab Results Component Value Date HGBA1C 6.9 04/24/2018 today, indicating DM control 1800 calorie, consistent carb diet recommended 25-45 min daily aerobic and resistance exercise recommended Prevention and treatment of hyypoglcyemia discussed. Blood glucose monitoring with fingers sticks 1-2 x day . Continue Basaglar, Victoza , Farxiga and Metformin . Assessment & Plan (01/27/2018 10:59 AM DELIVERY TRUCK DRIVER): A1c 6.7. Trending upward. No change to medication. Advised to continue to focus on diet and exercise. Assessment & Plan (10/17/2017 10:52 AM CDT): Your Hba1c today was: Lab Results Component Value Date HGBA1C 6.2 10/17/2017 meaning a 3 month average sugar of : 121 Your goal hba1c is under 7.0 to prevent continuous churn buttermaker diabetes complications ( eye , kidney and nerve damage ) . Your goal sugars are in the 90-130 range Daily aerobic ( walking, riding a bike, swimming ) and resistance exercises ( light weight lifting, resistance band stretching ) for at least 30 minutes is recommended If you can not walk, chair exercises is very acceptable. As little as 15-20 minutes exercise , in one or two sessions a day, is still very helpful and will help to improve your diabetes control . Eat small portion meals, no more than 1800 calories Diet Try to eat not more than than 2-3 servings of carbs ( starches ) wiith your meals. Avoid soft drinks, including regular sodas , fruit juices and sweetened tea. Drink water instead. Eat plenty of green and leafy vegetables, including salads. Take your medications regularly,including your insulin injections. Monitor your sugar levels with finger sticks regularly and keep a log sheet or book. Bring your sugar meter and /or a log book or log sheet to every office visit. Lower Basaglar to 20 units Start Farxiga, 10 mg daily If sugars start dropping under 120, lower Basaglar by another 5 units. Assessment & Plan (04/17/2017 3:27 PM DELIVERY TRUCK DRIVER): Hba1c was 5.8 today, indicating proper DM control 1800 calorie, consistent carb diet recommended 30 min daily aerobic and resistance exercise recommended Prevention and treatment of hyypoglcyemia discussed. Blood glucose monitoring with fingers sticks 1-2 x day . Lower Basaglar to 14 units Assessment & Plan (01/12/2017 10:14 AM DELIVERY TRUCK DRIVER): Hba1c was 5.8 today, indicating adequate DM control with risk of hypoglycemia 1800 calorie, consistent carb diet recommended 30 min daily aerobic and resistance exercise recommended Prevention and treatment of hyypoglcyemia discussed. Blood glucose monitoring with fingers sticks 1-2 x day . Foot care was discussed. Lower Lantus to 20 u hs, Hyperlipidemia 12/18/2011 Overview (06/01/2016): HYPERLIPIDEMIA NEC/NOS Assessment & Plan (06/16/2022 10:40 AM CDT): Lipids are well controlled. Continue high-intensity statin therapy. Assessment & Plan (06/13/2021 11:15 AM CDT): Lipids are well controlled. Continue high-intensity statin therapy. Assessment & Plan (04/26/2020 3:46 PM DELIVERY TRUCK DRIVER): Lipids are very well controlled. Continue high-intensity statin therapy. Assessment & Plan (10/21/2018 4:04 PM CDT): Lipids are very well controlled. Continue high-intensity statin therapy. Assessment & Plan (08/30/2018 10:57 AM CDT): Lipids on target with LDL 58 05/2018. Continue lipitor 40mg daily. Discussed lifestyle modifications. Assessment & Plan (07/18/2018 2:37 PM CDT): Lipids are very well controlled. Continue high-intensity statin therapy. Assessment & Plan (04/17/2017 3:20 PM DELIVERY TRUCK DRIVER): Goal of treatment , LDL cholesterol less than 100 ( less than 70 in patients with history of heart attacks and / or strokes ) NonHDL cholesterol ( total cholesterol minus HDL cholesterol ) goal less than 130 ( less than 100 in patients with history of heart attacks and / or strokes ) Low cholesterol, low fat diet was discussed and advised. Daily exercise On statin therapy Assessment & Plan (01/12/2017 10:08 AM DELIVERY TRUCK DRIVER): Goal of treatment , LDL cholesterol less than 100 ( less than 70 in patients with history of heart attacks and / or strokes ) NonHDL cholesterol goal less than 130 ( less than 100 in patients with history of heart attacks and / or strokes ) Continue statin therapy Hypertension associated with diabetes 12/18/2011 Overview (06/02/2016): Hypertension, Unspecified Assessment & Plan (02/15/2024 11:05 AM DELIVERY TRUCK DRIVER): Chronic, stable. Continue current regimen including lisinopril Update microalbumin Assessment & Plan (08/06/2023 4:23 PM CDT): Chronic, well controlled Continue current medication, including Lisinopril Assessment & Plan (11/10/2022 10:42 AM CDT): Chronic problem. Controlled on current Lisinopril 20mg daily, metoprolol tartrate 50mg 50mg bid Assessment & Plan (06/13/2022 4:03 PM CDT): Chronic, well controlled Continue Lisinopril Assessment & Plan (12/29/2021 3:37 PM CDT): Controlled on current medications, no changes. Assessment & Plan (06/21/2021 3:46 PM CDT): Chronic, well controlled Continue current meds Assessment & Plan (12/17/2020 11:25 AM CDT): On Lisinopril Low salt diet, exercise Check microalbumin Assessment & Plan (06/03/2020 3:59 PM CDT): Goal blood pressure is less than 140/85 Low salt diet was discussed andd recommended The importance of daily aerobic exercise was also emphasized. Continue current meds, including MOIRA-I or ARB, e.g. Lisinopril Assessment & Plan (11/25/2019 3:42 PM CDT): Goal blood pressure is less than 140/85 Low salt diet was discussed andd recommended The importance of daily aerobic exercise was also emphasized. Continue current meds, including MOIRA-I or ARB, e.g. Check microalbumin Assessment & Plan (05/01/2019 4:14 PM DELIVERY TRUCK DRIVER): Goal blood pressure is less than 140/85 Low salt diet recommended Daily aerobic exercise Continue current meds, including MOIRA-I or ARB Assessment & Plan (04/28/2019 3:47 PM DELIVERY TRUCK DRIVER): Blood pressure is excellent. Continue same therapy. Continue diet and exercise. Assessment & Plan (10/23/2018 4:10 PM CDT): Goal blood pressure is less than 140/85 Low salt diet recommended Daily aerobic exercise Continue current meds, including MOIRA-I or ARB Assessment & Plan (04/24/2018 4:31 PM DELIVERY TRUCK DRIVER): Goal blood pressure is less than 140/85 Low salt diet recommended Daily aerobic exercise Continue current meds, including MOIRA-I or ARB Check microalbumin Assessment & Plan (01/27/2018 11:11 AM DELIVERY TRUCK DRIVER): Controlled on current medications. Assessment & Plan (10/17/2017 12:49 PM CDT): Goal blood pressure is less than 140/85 Low salt diet recommended Daily aerobic exercise Continue current meds. Assessment & Plan (04/17/2017 3:20 PM DELIVERY TRUCK DRIVER): Goal blood pressure is less than 140/85 Low salt diet recommended Daily aerobic exercise Continue current meds, including MOIRA-I or ARB Assessment & Plan (01/12/2017 10:08 AM DELIVERY TRUCK DRIVER): Goal blood pressure is less than 140/85 Low salt diet recommended Daily aerobic exercise Continue current meds, including MOIRA-I or ARB, with Lisinopril S/P drug eluting coronary stent placement Resolved Problems Problem Noted Date Diagnosed Date Resolved Date CAD (coronary artery disease) 10/16/2022 11/23/2022 Abnormal cardiovascular stress test 09/29/2022 11/23/2022 Positive cardiac stress test 09/09/2018 09/11/2018 Overview (09/09/2018): Added automatically from request for surgery [id number] Acute chest pain 08/30/2018 11/25/2019 Assessment & Plan (08/30/2018 11:54 AM CDT): Similar to chest pain prior to [place], however atypical in that she is usually able to perform all activities without any symptoms at all. She has been 100% compliant with DAPT. Currently she is asymptomatic and EKG unchanged from prior tracings and without any acute ST-T wave abnormalities. Will check exercise stress echo and provide Rx for nitroglycerin. Discussed with Dr. Tan in Dr. Wagner's absence. NSTEMI (non-ST elevated myoc ardial infarction) ([facility]) 06/12/2018 11/25/2019 Overview (06/12/2018): Added automatically from request for surgery [id number] Social History Tobacco Use Types Packs/Day Years Used Date Smoking Tobacco: Former Cigarettes 0.5 2 Smokeless Tobacco: Never Tobacco Cessation:Counseling Given: Not Answered Alcohol Use Standard Drinks/Week Comments Not Currently 0 (1 standard drink = 0.6 oz pur e alcohol) AUDIT-C Answer Date Recorded Q1: How often do you have a drink containing alcohol? Never 02/15/2024 Q2: How many drinks containi ng alcohol do you have on a typical day when you are drinking? Patient does not drink Q3: How often do you have si x or more drinks on one occasion? Never 02/15/2024 PHQ-2 Answer Date Recorded PHQ-2 Total Score (If total score is 3 or more points, staff should administer the PHQ-9) 0 02/15/2024 Personal Safety Answer Date Recorded Have you ever been in or are you currently in a harmful physical or emotional relationship or is someone making you feel afraid or unsafe? 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 Gender Identity Not on file Sexual Orientation Straight 02/15/2024 9: 20 AM DELIVERY TRUCK DRIVER Last Filed Vital Signs Vital Sign Reading Time Taken Comments Blood Pressure 122/80 02/15/2024 9:24 AM DELIVERY TRUCK DRIVER Pulse 68 02/15/2024 9:24 AM DELIVERY TRUCK DRIVER Temperature 36.6 C (97.9 F) 10/17/2022 1:42 PM CDT Respiratory Rate 18 02/15/2024 9:24 AM DELIVERY TRUCK DRIVER Oxygen Saturation 97% 02/08/2024 11: 24 AM DELIVERY TRUCK DRIVER Inhaled Oxygen Concentration - - Weight 69.8 kg (153 lb 12.8 oz) 02/15/2024 9:24 AM DELIVERY TRUCK DRIVER Height 167.6 cm (5' 6 ) 02/15/2024 9:24 AM DELIVERY TRUCK DRIVER Body Mass Index 24.82 02/15/2024 9:24 AM DELIVERY TRUCK DRIVER Plan of Treatment Not on file Medical Devices Implanted Type Area Assistant Hvac Mechanic Device Identifier Shelf Expiration Date Model / Serial / Lot [employer] [id number] Synergy 3mm 24mm 144cm Radiopaque 1 Access Port Inflation Lumen - [id number] Implanted:Qty : 1 on 06/12/2018 by Alejandro Wagner MD at [facility] Stent N/A: Coronary [employer] 03/19/2020 [id number] / / [id number] Description:To OM [employer] [id number] Synergy 3mm 16mm 144cm Radiopaque 1 Access Port Inflation Lumen - [id number] Implanted:Qty : 1 on 09/10/2018 by Alfredito Porter MD at [facility] Stent N/A: Coronary [employer] 04/30/2020 [id number] / / [id number] Description:LAD [employer] Synergy Xd Monorail 3mm 20mm 144cm Delivery System 1 Access Port [id number] - S0 - [id number] Implanted:Qty : 1 on 10/16/2022 by Rishabh Bishop MD at [facility] Stent N/A: Coronary Artery [employer] 05/15/2024 [id number] / 0 / [id number] [employer] Angio-Seal Vip 6fr Closere Device [id number] - S0 - [id number] Implanted:Qty : 1 on 10/16/2022 by Rishabh Bishop MD at [facility] Vascular Closure Device Right: Coronary Artery [employer] 04/26/2023 [id number] / [id number] / [id number] Procedures Procedure Name Priority Date/Time Associated Diagnosis Comments POCT GLUCOSE Routine 02/15/2024 9:24 AM DELIVERY TRUCK DRIVER Type 2 diabetes mellitus with hyperglycemia, with long-term current use of insulin (HCC) POCT HEMOGLOBIN A1C Routine 02/15/2024 9 :24 AM DELIVERY TRUCK DRIVER Type 2 diabetes mellitus with hyperglycemia, with long-term current use of insulin (HCC) ALBUMIN CREATININE RATIO, URINE Routine 02/15/2024 8:00 AM DELIVERY TRUCK DRIVER Type 2 diabetes mellitus with hyperglycemia, with long-term current use of insulin (HCC) POCT LIPID PANEL Routine 02/08/2024 11:3 5 AM DELIVERY TRUCK DRIVER Coronary artery disease involving telida coronary artery of 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 pectoris HM DIABETES EYE EXAM Routine 04/30/2023 10:30 AM DELIVERY TRUCK DRIVER EGFR Routine 10/17/2022 3:30 AM CDT COLONOSCOPY 02/03/2022 8:41 AM DELIVERY TRUCK DRIVER from Last 3 Months or Most Recently Relevant to Health Maintenance Results * (ABNORMAL) POCT hemoglobin A1c (02/15/2024 9:24 AM DELIVERY TRUCK DRIVER) Hemoglobin A1C, POC 8.1 4.0 - 5.6 % Comment:None Capillary blood 02/15/2024 9 :24 AM DELIVERY TRUCK DRIVER us Delmer Goss MD POINT OF CARE TEST ORDERABLES Fi nal Result * (ABNORMAL) POCT glucose (02/15/2024 9:24 AM DELIVERY TRUCK DRIVER) Glucose Blood, POC 140 mg/dL Comment:None Blood 02/15/2024 9:24 AM DELIVERY TRUCK DRIVER us Delmer Goss MD POINT OF CARE TEST ORDERABLES Fi nal Result * Albumin Creatinine Ratio, Urine (02/15/2024 8:00 AM DELIVERY TRUCK DRIVER) Albumin Ur <12.0 mg/L Comment: Interpretive Data No reference range established. Current interpretive data was last revised 2018. Creatinine Ur 37.2 mg/dL [facility] Comment: Interpretive Data No reference range established. Current interpretive data was last revised 2018. Albumin Creatinine Ratio, Ur See Comment 1 - 29 [facility] Comment:Unable to calculate Urine 02/15/2024 8:00 AM DELIVERY TRUCK DRIVER 02/15/2024 2:53 PM DELIVERY TRUCK DRIVER Delmer Goss MD LAB URINE ORDERABLES Final Resul t [facility] [id number] Department [place] [address] * POCT lipid panel (02/08/2024 11:35 AM DELIVERY TRUCK DRIVER) Cholesterol, POC 147 mg/dL HDL, POC 49 mg/dL Triglycerides, POC 650 mg/dL LDL Cholesterol POC 32 mg/dL Chol/HDL Ratio, POC 0.65 Non-HDL Cholesterol, POC 98 mg/dL Cholesterol Total, POC 147 mg/dL Capillary blood 02/08/2024 1 1:35 AM DELIVERY TRUCK DRIVER Dylan Mosley MD POINT OF CARE TEST CHARISSA ROWLEY Final Result * HM DIABETES EYE EXAM (04/30/2023 10:30 AM DELIVERY TRUCK DRIVER) Ibrahima Zamora MD HEALTH MAINTENANCE Final Result * eGFR (10/17/2022 3:30 AM CDT) eGFR 98 mL/min/1. 73 m2 [facility] Comment: Interpretive Data Reference Interval Normal >/= 90 mL/min/1.73m2 Mildly decreased* 60 - 89 mL/min/1.73m2 Mildly to moderately decreased 45 - 59 mL/min/1.73m2 Moderately to severely decreased 30 - 44 mL/min/1.73m2 Severely decreased 15 - 29 mL/min/1.73m2 Kidney Failure < 15 mL/min/1.73m2 *Relative to young adult level Estimated glomerular filtration rate is determined by the 2020 CKD-EPI equation recommended by the National Kidney Foundation (A Unifying Approach to GFR Estimation: Recommendations of the NKF-ASK Task Force on Reassessing the Inclusion of Race in Diagnosing Kidney Disease, JASN 202). The CKD-EPI equation should not be used for patients with unstable renal function and has not been validated in children and those over 70. Current interpretive data was last reviewed 2020. Blood 10/17/2022 3:30 AM CDT 10/17/2022 4:36 AM CDT us Rishabh Bishop MD LAB BLOOD ORDERABLES Fin al Result [facility] [address] Department [place] [address] * COLONOSCOPY (02/03/2022 8:41 AM DELIVERY TRUCK DRIVER) Anatomical Region Laterality Modality Other Narrative Procedure Note Kendall Lisa MD - 02/03/2022 8:41 AM CST [facility] Patient Name: Myra Romero Procedure Date: 02/03/2022 8:41 AM Date of : 1955 Admit Type: Outpatient Age: 67 Gender: Female Note Status: Finalized Attending MD: Kendall Lisa M.D. Procedure Date: 02/03/2022 Procedure: Colonoscopy Indications: High risk colon cancer surveillance: Personalhistory of colonic polyps, Last colonoscopy: December2016 Providers: Kendall Lisa M.D., CASANDRA Nunez (Anesthesia Staff), Shari Jose RN, Maxx Thacker,Orthotic Aide Referring MD: Trisha Kay NP Medicines: Monitored Anesthesia Care Complications: No immediate complications. Estimated Blood Loss: Estimated blood loss: none. Procedure: Pre-Anesthesia Assessment: - Airway Examination: normal oropharyngeal airwayand neck mobility. - Respiratory Examination: clear to auscultation. - ASA Grade Assessment: II - A patient with mild systemic disease. - After reviewing the risks and benefits, thepatient was deemed in satisfactory condition to undergo the procedure. - The risks and benefits of the procedure and the sedation options and risks were discussed with the patient. All questions were answered and informed consent was obtained. After I obtained informed consent, the scope was passed under direct vision. Throughout theprocedure, the patient's blood pressure, pulse, and oxygen saturations were monitored continuously. The scopewas passed under direct vision. The Colonoscope was introduced through the anus and advanced to the the cecum, identified by the appendiceal orifice, ileocecal valve and palpation. The colonoscopy was performed with ease. The patient tolerated the procedure well. The quality of the bowelpreparation was good. The quality of the bowel preparation was evaluated using the BBPS ([employer] Bowel Preparation Scale) with scores of: Right Colon = 3, Transverse Colon = 3 and Left Colon = 3 (entire mucosa seenwell with no residual staining, small fragments of stoolor opaque liquid). The total BBPS score equals 9. The bowel preparation used was SUPREP via split dose instruction. Bowel prep was administered using asplit dose. Findings: The perianal and digital rectal examinations were normal. A 4 mm polyp was found in the ascending colon. The polyp was sessile. The polyp was removed with a cold biopsy forceps. Resection and retrieval were complete. Estimated blood loss: none. Multiple medium-mouthed diverticula were found in the entire colon. Anal papilla(e) were hypertrophied. Impression: - One 4 mm polyp in the ascending colon, removedwith a cold biopsy forceps. Resected and retrieved. - Diverticulosis in the entire examined colon. - Anal papilla(e) were hypertrophied. Recommendation: - Discharge patient to home (ambulatory). - Await pathology results. - Repeat colonoscopy in 5 years for surveillance. Procedure Code(s): --- Professional --- 25843, Colonoscopy, flexible; with biopsy, singleor multiple Diagnosis Code(s): --- Professional --- Z86.010, Personal history of colonic polyps D12.2, Benign neoplasm of ascending colon K62.89, Other specified diseases of anus andrectum K57.30, Diverticulosis of large intestine without perforation or abscess without bleeding CPT copyright 2020 [employer]. All rights reserved. The codes documented in this report are preliminary and upon remote medical coder reviewmay be revised to meet current compliance requirements. Electronically signed by Kendall Lisa MD Kendall Lisa M.D. 02/03/2022 9:08:11 AM Number of Addenda: 0 Note Initiated On: 02/03/2022 8:41 AM Kendall Lisa MD ENDOSCOPY PROCEDURES Final Resul t from Last 3 Months or Most Recently Relevant to Health Maintenance Insurance CHOICE [facility] [place]PO [place] MEDICARE [employer] SENIOR SUPPLEMENT MEDIC[place] [address] Advance Directives For more information, please contact: [phone] * Full Code (Latest Code Status on File) Date Activated Date Inactivated Comments 10/16/2022 3:16 PM 10/17/2022 9:16 PM * Full Code Date Activated Date Inactivated Comments 09/10/2018 9:20 AM 09/11/2018 2:07 PM * Full Code Date Activated Date Inactivated Comments 09/10/2018 1:10 AM 09/10/2018 9:20 AM * Full Code Date Activated Date Inactivated Comments 06/12/2018 3:17 PM 06/13/2018 3:06 PM * Full Code Date Activated Date Inactivated Comments 06/12/2018 3:15 PM 06/12/2018 3:16 PM Care Teams Home Paraprofessional Relationship Specialty Start Date End Date French Browning DO [address] [place] [address] PCP - General Family Medicine 01/08/23 [place] [id number] [place] [address] Consulting Physician Endocrinology Diabetes & Metabolism 04/24/18 Alejandro Wagner MD [address] [place] [address] Consulting Physician Cardiology 06/13/18
--- OUTSIDE RECORDS SUMMARY | 2024-04-11 11:37 | XMS_ITS | Clinical Summary ---
Author Organization [facility] Address [address] [place] [address] Care Team Providers Care Professor Of Business Name Role Phone Delmer Goss MD Unavailable Alejandro Wagner MD Unavailable French Browning DO Primary Care Provider Allergies Active Allergy Reactions Criticality Noted Date [...] doses total 30 tablet 2 9 Active smuuz-2-uff-epa -fish oil 300-1,000 mg capsule,delayed release(DR/EC) Take [...] daily Active pen needle, diabetic (Sure-Fine Pen [place]) 31 gauge x 5/16 needle Use to [...] hyperglycemia, with long-term current use of insulin ([facility]) USE TO TEST BLOOD SUGARS 3 TIMES DAILY DX:E11.65 insulin dependent 300 strip 3 4 Active metFORMIN (GLUCOPHAGE) 1,000 mg tablet TAKE 1 TABLET BY MOUTH TWICE A DAY WITH FOOD 180 tablet 3 4 Active insulin degludec (TRESIBA) 100 unit/mL (3 mL) pen for injectionIndica tions:Type 2 diabetes mellitus with hyperglycemia, with long-term current use of insulin ([facility]) INJECT 20 UNITS TOTAL UNDER THE SKIN NIGHTLY 15 mL 3 4 Active Farxiga 10 mg tabletIndicatio ns:Type 2 diabetes mellitus with hyperglycemia, with long-term current use of insulin ([facility]) TAKE 1 TABLET BY MOUTH EVERY DAY [...] CDT): The most recent colonoscopy was in 2016. A tubular adenoma was removed from the [...] High-fiber diet. Coronary artery disease invo lving saxman coronary artery of saxman heart without angina pectoris 07/17/2018 Assessment & Plan (01/08/2023 2:33 PM VICE PROVOST): Stable status post recent repeat stenting of [...] regularly. Assessment & Plan (04/26/2020 3:45 PM VICE PROVOST): Stable, without angina. I made no change in her excellent medical regimen today. I asked her to follow up with me annually, sooner if needed. I again advised her to diet and exercise regularly. Assessment & Plan (04/28/2019 3:47 PM VICE PROVOST): Stable, without angina. 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 Assessment & Plan (07/18/2018 2:37 PM [...] 07/17/2018 Assessment & Plan (01/08/2023 2:33 PM VICE PROVOST): Well controlled. Continue same therapy. Continue diet and exercise. Assessment & Plan (06/16/2022 10:40 AM CDT): Blood pressure is well controlled. Continue same therapy. Continue diet and exercise. Assessment & Plan (06/13/2021 11:15 AM CDT): Blood pressure is well controlled. Continue same therapy. Continue diet and exercise. Assessment & Plan (04/26/2020 3:45 PM VICE PROVOST): Blood pressure is well controlled. Continue same [...] daily Assessment & Plan (01/08/2023 2:34 PM VICE PROVOST): Well controlled. Continue high-intensity statin therapy. Assessment & Plan (11/10/2022 10:42 AM CDT): Chronic problem. Controlled on current Atorvastatin 40mg. Last lipid panel: 12/29/21 LDL=60, KX=483. Assessment & Plan (12/29/2021 3:37 PM CDT): [...] therapy Assessment & Plan (05/01/2019 4:15 PM VICE PROVOST): Goal of treatment , LDL cholesterol less [...] Lipitor Assessment & Plan (04/28/2019 3:47 PM VICE PROVOST): Lipids are very well controlled. Continue high-intensity [...] therapy Assessment & Plan (04/24/2018 4:31 PM VICE PROVOST): Goal of treatment , LDL cholesterol less [...] therapy Assessment & Plan (01/27/2018 11:11 AM VICE PROVOST): Check lipid panel and adjust statin accordingly Type 2 diabetes mellitus wit h hyperglycemia, with long-term current use of insulin 07/02/2013 Overview (06/02/2016): DMII WO CMP UNCNTRLD Assessment & Plan (02/15/2024 11:04 AM VICE PROVOST): Chronic, not at goal with higher A1c [...] current Assessment & Plan (05/01/2019 4:14 PM VICE PROVOST): Hba1c was Lab Results Component Value Date [...] untis Assessment & Plan (04/24/2018 4:31 PM VICE PROVOST): Hba1c was Lab Results Component Value Date HGBA1C 6.9 04/24/2018 today, indicating DM control 1800 calorie, consistent carb diet recommended 25-45 min daily aerobic and resistance exercise recommended Prevention and treatment of hyypoglcyemia discussed. Blood glucose monitoring with fingers sticks 1-2 x day . Continue Basaglar, Victoza , Farxiga and Metformin . Assessment & Plan (01/27/2018 10:59 AM VICE PROVOST): A1c 6.7. Trending upward. No change to medication. Advised to continue to focus on diet and exercise. Assessment & Plan (10/17/2017 10:52 AM CDT): Your Hba1c today was: Lab Results Component Value Date HGBA1C 6.2 10/17/2017 meaning a 3 month average sugar of : 121 Your goal hba1c is under 7.0 to prevent penitentiary diabetes complications ( eye , kidney and [...] units. Assessment & Plan (04/17/2017 3:27 PM VICE PROVOST): Hba1c was 5.8 today, indicating proper DM control 1800 calorie, consistent carb diet recommended 30 min daily aerobic and resistance exercise recommended Prevention and treatment of hyypoglcyemia discussed. Blood glucose monitoring with fingers sticks 1-2 x day . Lower Basaglar to 14 units Assessment & Plan (01/12/2017 10:14 AM VICE PROVOST): Hba1c was 5.8 today, indicating adequate DM [...] therapy. Assessment & Plan (04/26/2020 3:46 PM VICE PROVOST): Lipids are very well controlled. Continue high-intensity [...] therapy. Assessment & Plan (04/17/2017 3:20 PM VICE PROVOST): Goal of treatment , LDL cholesterol less [...] therapy Assessment & Plan (01/12/2017 10:08 AM VICE PROVOST): Goal of treatment , LDL cholesterol less [...] Unspecified Assessment & Plan (02/15/2024 11:05 AM VICE PROVOST): Chronic, stable. Continue current regimen including lisinopril [...] microalbumin Assessment & Plan (05/01/2019 4:14 PM VICE PROVOST): Goal blood pressure is less than 140/85 Low salt diet recommended Daily aerobic exercise Continue current meds, including MOIRA-I or ARB Assessment & Plan (04/28/2019 3:47 PM VICE PROVOST): Blood pressure is excellent. Continue same therapy. Continue diet and exercise. Assessment & Plan (10/23/2018 4:10 PM CDT): Goal blood pressure is less than 140/85 Low salt diet recommended Daily aerobic exercise Continue current meds, including MOIRA-I or ARB Assessment & Plan (04/24/2018 4:31 PM VICE PROVOST): Goal blood pressure is less than 140/85 Low salt diet recommended Daily aerobic exercise Continue current meds, including MOIRA-I or ARB Check microalbumin Assessment & Plan (01/27/2018 11:11 AM VICE PROVOST): Controlled on current medications. Assessment & Plan (10/17/2017 12:49 PM CDT): Goal blood pressure is less than 140/85 Low salt diet recommended Daily aerobic exercise Continue current meds. Assessment & Plan (04/17/2017 3:20 PM VICE PROVOST): Goal blood pressure is less than 140/85 Low salt diet recommended Daily aerobic exercise Continue current meds, including MOIRA-I or ARB Assessment & Plan (01/12/2017 10:08 AM VICE PROVOST): Goal blood pressure is less than 140/85 [...] (09/09/2018): Added automatically from request for surgery [id number] Acute chest pain 08/30/2018 11/25/2019 Assessment & Plan (08/30/2018 11:54 AM CDT): Similar to chest pain prior to NE, however atypical in that she is usually [...] absence. NSTEMI (non-ST elevated myoc ardial infarction) ([facility]) 06/12/2018 11/25/2019 Overview (06/12/2018): Added automatically from request for surgery [id number] Encounters Date Type Department Care Team Description 03/17/2024 Telephone [facility] [address] [address] Delmer Goss MD PA in [facility] Ozempic 02/15/2024 10:51 AM VICE PROVOST - 02/15/2024 11:59 PM VICE PROVOST Hospital Encounter [address] [address] Type 2 diabetes mellitus with hyperglycemia, with long-term current use of insulin ([facility]) Discharge Disposition: Discharge to home or self care 02/15/2024 9:00 AM VICE PROVOST Office Visit [facility] [address] [address] Delmer Goss MD Type 2 diabetes mellitus with hyperglycemia, with long-term current use of insulin (HCC) (Primary Dx); Hypertension associated with diabetes (HCC) 02/08/2024 11:15 AM VICE PROVOST Office Visit [facility] [address] [place] [id number] Dylan Mosley MD Coronary artery disease involving saxman coronary artery of saxman heart without angina pectoris (Primary Dx); S/P drug eluting coronary stent placement; Hypertension associated with diabetes (HCC); Hyperlipidemia associated with type 2 diabetes mellitus (HCC) from Last 3 Months Surgical History Surgery Date Site/Laterality Comments HYSTERECTOMY Hysterectomy SECTION section KNEE SURGERY Bilateral bilateral knee surgery CARDIAC CATHETERIZATION CARDIAC STENT PLACEMENT 05/27/2018 - 06/25/2018 HAND SURGERY COLONOSCOPY 02/03/2022 Screening, last colonoscopy in 2016 ANGIOPLASTY 2018 KNEE ARTHROSCOPY W/ LATERAL RELEASE 2011 SECTION 1989 TUBAL LIGATION 1989 Medical History Medical History Date Comments Hyperlipidemia Hyperlipidemia Hypertension Hypertension Diabetes mellitus (HCC) Coronary artery disease Non-STEMI (non-ST elevated myocardial infarction) ([facility]/HCC) ([facility]) Acute chest pain 08/30/2018 NSTEMI (non-ST elevated myocardial infarction) ([facility]) ([facility]) 06/12/2018 Added automatically from request for surgery [id number] Osteoporosis GERD (gastroesophageal reflu x disease) 2 yrs ago Anxiety 1989 Arthritis 2019 Cataract 2011 Depression 1989 Heart disease Heart disease. 2 tiseha nts placed in 2019 heart mike Family History Medical History Relation Name Comments Pancreatic cancer Brother 1 Cancer -pa ncreatic; Diabetes type I Brother 2 Diabetes -Ty pe 1; Cancer Brother 3 Juan Arthritis Father Tunde, my father Diabetes Father Tunde, my father Diabetes me llitus; Hearing loss Father Tunde, my father Heart disease Father Tunde, my father Hypertension Father Tunde, my father Depression Mother Rocio Early Mother Rocio Hypertension Mother Rocio Obesity Mother Rocio Relation Name Status Comments Brother 1 Brother 2 Brother 3 Juan Father Tunde, my father Mother Rocio Social History Tobacco Use Types Packs/Day Years [...] on file Legal Sex Female 2:00 AM VICE PROVOST Gender Identity Not on file Sexual Orientation Straight 02/15/2024 9: 20 AM VICE PROVOST Obstetrics History Last Filed Vital Signs Vital Sign Reading Time Taken Comments Blood Pressure 122/80 02/15/2024 9:24 AM VICE PROVOST Pulse 68 02/15/2024 9:24 AM VICE PROVOST Temperature 36.6 C (97.9 F) 10/17/2022 1:42 PM CDT Respiratory Rate 18 02/15/2024 9:24 AM VICE PROVOST Oxygen Saturation 97% 02/08/2024 11: 24 AM VICE PROVOST Inhaled Oxygen Concentration - - Weight 69.8 kg (153 lb 12.8 oz) 02/15/2024 9:24 AM VICE PROVOST Height 167.6 cm (5' 6 ) 02/15/2024 9:24 AM VICE PROVOST Body Mass Index 24.82 02/15/2024 9:24 AM VICE PROVOST Plan of Treatment Health Maintenance Due Date Last Done Comments Breast Cancer Screening-Mammogram 1955 Hepatitis C Screening 1955 Hepatitis B Screening 02/01/1972 Zoster Vaccine (1 of 2) 02/01/2004 DTaP/Tdap/Td Vaccine (1 - Tdap) 07/19/2004 5 Pneumococcal vaccine 65+ (2 of 2 - PCV) 12/12/2014 12/12/2013 Well Visit 65+ 2019 Foot Exam 12/29/2022 12/29/2021, 04/2 07/2021, 11/25/2019, Additional history exists eGFR 10/18/2023 10/17/2022, 09/26, 12/29/2021, Additional history exists Influenza Vaccine (#1) 2023 8, 01/07/2016, 12/08/2013, Additional history exists Dilated Eye Exam 04/29/2024 04/30/2023, , 04/11/2021, Additional history exists Hemoglobin A1C 08/15/2024 02/15/2024, 07/27, 11/10/2022, Additional history exists Lipid Panel 02/07/2025 02/08/2024, 12/27, 12/29/2021, Additional history exists Albumin Creatinine Ratio, Urine 02/14/2025 02/15/2024, 12/29/2021, 12/17/2020, Additional history exists Depression Screening 02/14/2025 02/15/2024, 06/21/2021, 12/17/2020, Additional history exists Fall Risk Assessment 02/14/2025 02/15/2024, 08/06/2023, 10/17/2022 Osteoporosis Screening-Bone Density Scan 05/06/2025 05/07/2023 Colon Cancer Screening-Colonoscopy 02/04/2032 02/03/2022, 01/11/2017 Colon Cancer Screening-CT Colonography Discontinued 02/03/2022, 01/11/2017 Colon Cancer Screening-DNA Stool Discontinued 02/04/20, 01/11/2017 Colon Cancer Screening-FIT Discontinued 02/03/2022, Colon Cancer Screening-Sigmoidoscopy Discontinued 02/03/2022, 01/11/2017 Medical Devices Implanted Type Area V Belt Curer Device Identifier Shelf Expiration Date Model / Serial / Lot [employer]eta [id number] Synergy 3mm 24mm 144cm Radiopaque 1 Access Port Inflation Lumen - [id number] Implanted:Qty : 1 on 06/12/2018 by Alejandro Wagner MD at [facility] Stent N/A: Coronary [employer] 03/19/2020 [id number] / / [id number] Description:To OM [employer] [id number] Synergy 3mm 16mm 144cm Radiopaque 1 Access Port Inflation Lumen - [id number] Implanted:Qty : 1 on 09/10/2018 by Alfredito Porter MD at [facility] Stent N/A: Coronary [employer] 04/30/2020 [id number] / / [id number] Description:LAD [employer] Synergy Xd Monorail 3mm 20mm 144cm Delivery System 1 Access Port [id number] - S0 - [id number] Implanted:Qty : 1 on 10/16/2022 by Rishabh Bishop MD at [facility] Stent N/A: Coronary Artery [employer] 05/15/2024 [id number] / 0 / [id number] [employer] En[employer] Angio-Seal Vip 6fr Closere Device [id number] - S0 - [id number] Implanted:Qty : 1 on 10/16/2022 by Rishabh Bishop MD at [facility] Vascular Closure Device Right: Coronary Artery [employer] En[employer] 04/26/2023 [id number] / 0 / [id number] Procedures Procedure Name Priority Date/Time Associated Diagnosis Comments POCT GLUCOSE Routine 02/15/2024 9:24 AM VICE PROVOST Type 2 diabetes mellitus with hyperglycemia, with long-term current use of insulin (HCC) POCT HEMOGLOBIN A1C Routine 02/15/2024 9 :24 AM VICE PROVOST Type 2 diabetes mellitus with hyperglycemia, with long-term current use of insulin ([facility]) ALBUMIN CREATININE RATIO, URINE Routine 02/15/2024 8:00 AM VICE PROVOST Type 2 diabetes mellitus with hyperglycemia, with long-term current use of insulin ([facility]) POCT LIPID PANEL Routine 02/08/2024 11:3 5 AM VICE PROVOST Coronary artery disease involving saxman coronary artery of saxman heart without angina pectoris HM DIABETES EYE EXAM Routine 04/30/2023 10:30 AM VICE PROVOST EGFR Routine 10/17/2022 3:30 AM CDT COLONOSCOPY 02/03/2022 8:41 AM VICE PROVOST from Last 3 Months or Most Recently Relevant to Health Maintenance Results * (ABNORMAL) POCT hemoglobin A1c (02/15/2024 9:24 AM VICE PROVOST) Hemoglobin A1C, POC 8.1 4.0 - 5.6 % Comment:None Capillary blood 02/15/2024 9 :24 AM VICE PROVOST us Delmer Goss MD POINT OF CARE TEST ORDERABLES Fi nal Result * (ABNORMAL) POCT glucose (02/15/2024 9:24 AM VICE PROVOST) Glucose Blood, POC 140 mg/dL Comment:None Blood 02/15/2024 9:24 AM VICE PROVOST us Delmer Goss MD POINT OF CARE TEST ORDERABLES Fi nal Result * Albumin Creatinine Ratio, Urine (02/15/2024 8:00 AM VICE PROVOST) Albumin Ur <12.0 mg/L Comment: Interpretive Data No reference range established. Current interpretive data was last revised 2018. Creatinine Ur 37.2 mg/dL [facility] Comment: Interpretive Data No reference range established. Current interpretive data was last revised 2018. Albumin Creatinine Ratio, Ur See Comment 1 - 29 [facility] Comment:Unable to calculate Urine 02/15/2024 8:00 AM VICE PROVOST 02/15/2024 2:53 PM VICE PROVOST us Delmer Goss MD LAB URINE ORDERABLES Final Resul t [facility] [id number] Department [place] [address] * POCT lipid panel (02/08/2024 11:35 AM VICE PROVOST) Cholesterol, POC 147 mg/dL HDL, POC 49 mg/dL Triglycerides, POC 650 mg/dL LDL Cholesterol POC 32 mg/dL Chol/HDL Ratio, POC 0.65 Non-HDL Cholesterol, POC 98 mg/dL Cholesterol Total, POC 147 mg/dL Capillary blood 02/08/2024 1 1:35 AM VICE PROVOST Dylan Mosley MD POINT OF CARE TEST ORDE AMRIK Final Result * HM DIABETES EYE EXAM (04/30/2023 10:30 AM VICE PROVOST) Ibrahima Provider HEALTH MAINTENANCE Final Result * eGFR (10/17/2022 3:30 AM CDT) eGFR 98 mL/min/1. 73 m2 [facility] Comment: Interpretive Data Reference Interval [...] of Race in Diagnosing Kidney Disease, JASN 2020). The CKD-EPI equation should not be used for patients with unstable renal function and has not been validated in children and those over 70. Current interpretive data was last reviewed 2020. Blood 10/17/2022 3:30 AM CDT 10/17/2022 4:36 AM CDT Rishabh Bishop MD LAB BLOOD ORDERABLES Fin al Result [facility] [address] [place] [address] * COLONOSCOPY (02/03/2022 8:41 AM VICE PROVOST) Anatomical Region Laterality Modality Other Narrative Procedure Note Kendall Lisa MD - 02/03/2022 8:41 AM CST [facility] Endoscopy Lab Patient Name: Myra Romero Procedure Date: 02/03/2022 8:41 AM Date of : 1955 Admit Type: Outpatient Age: 67 Gender: Female Note Status: Finalized Attending MD: Kendall Lisa M.D. Procedure Date: 02/03/2022 Procedure: Colonoscopy Indications: High risk colon cancer surveillance: Personalhistory of colonic polyps, Last colonoscopy: December2016 Providers: Kendall Lisa M.D., CASANDRA Nunez (Anesthesia Staff), Shari Jose RN, Maxx Thacker,Twister Doffer Referring MD: Trisha Kay NP Medicines: Monitored [...] bowel preparation was evaluated using the BBPS ([place] Bowel Preparation Scale) with scores of: Right [...] for surveillance. Procedure Code(s): --- Professional --- 68232, Colonoscopy, flexible; with biopsy, singleor multiple Diagnosis Code(s): --- Professional --- Z86.010, Personal history of colonic polyps D12.2, Benign neoplasm of ascending colon K62.89, Other specified diseases of anus andrectum K57.30, Diverticulosis of large intestine without perforation or abscess without bleeding CPT copyright 2020 [employer]. All rights reserved. The codes documented in this report are preliminary and upon head field hockey coach reviewmay be revised to meet current compliance requirements. Electronically signed by Kendall Lisa MD Kendall Lisa M.D. 02/03/2022 9:08:11 AM Number of Addenda: 0 Note Initiated On: 02/03/2022 8:41 AM Kendall Lisa MD ENDOSCOPY PROCEDURES Final Resul t from Last 3 Months or Most Recently Relevant to Health Maintenance Insurance [place] CHO[place] AETNA SENIOR SUPPLEMENT MEDICARE AETNA SENIOR SUPPLEMENT Member Subscriber Plan / Payer ( fective 2020-Present) Name:Myra Romero Relation to Subscriber:Self Name:Myra Romero Payer ID:[id number] Group ID:Not on file Type:[facility] Address: [address] [address] [place] [address] Advance Directives For more information, please contact: [phone] * Full Code (Latest Code Status on [...] 3:15 PM 06/12/2018 3:16 PM Care Teams Professor Of Business Relationship Specialty Start Date End Date French Browning DO [address] [place] [address] PCP - General Family Medicine 01/08/23 [place] [address] [place] [address] Consulting Physician Endocrinology Diabetes & Metabolism 04/24/18 Alejandro Wagner MD [address] [place] [address] Consulting Physician Cardiology 06/13/18
[2024-04-11 11:40] LABS: Basophils Absolute Auto 0.02 K/mm3 (0.00-0.10); Basophils Percent Auto 0.3 % (0.0-1.0); Eosinophils Absolute Auto 0.08 K/mm3 (0.02-0.50); Eosinophils Percent Auto 1.1 % (1.0-6.0); Hematocrit 41.5 % (35.0-42.0); Hemoglobin 13.6 g/dL (11.7-13.8); Immature Granulocyte Absolute 0.03 K/mm3 (0.00-0.00); Immature Granulocyte Percent A 0.4 % (0.0-0.0); Lymphocytes Absolute Auto 1.77 K/mm3 (1.10-4.50); Lymphocytes Percent Auto 25.3 % (18.0-42.0); Mean Corpuscular HGB Conc 32.8 g/dL (32-36); Mean Corpuscular Hemoglobin 27.8 pg (27.0-31.0); Mean Corpuscular Volume 84.9 fL (78.0-102.0); Mean Platelet Volume 9.2 fl (9.2-11.8); Monocytes Percent Auto 8.6 % (2.0-11.0); Neutrophils Absolute Auto 4.49 K/mm3 (1.70-7.20); Neutrophils Percent Auto 64.3 % (50.0-70.0); Platelet Count Result 334 K/mm3 (150-420); Red Blood Count 4.89 M/mm3 (4.20-5.40); Red Cell Distribution Width 14.6 % (11.6-14.4)
[2024-04-11 12:43] LABS: Alanine Aminotransferase 27 U/L (14-59); Albumin Level 3.6 g/dL (3.4-5.0); Alkaline Phosphatase 62 U/L (46-116); Anion Gap 11 mmol/L (4-12); Aspartate Amino Transferase < 10 U/L (15-37); Bilirubin,Total 0.5 mg/dL (0.00-1.00); Blood Urea Nitrogen 18 mg/dL (7-18); Calcium 8.8 mg/dL (8.5-10.1); Carbon Dioxide 26 mmol/L (21-32); Chloride 104 mmol/L (98-108); Cholesterol 107 mg/dL (0-200); Estimated Glomerular Filt Rate 46; Glucose 151 mg/dL (70-99); HDL Direct 39 mg/dL (40-60); LDL Cholesterol Calculated 47 mg/dL (<130); Magnesium 1.2 mg/dL (1.8-2.4); Osmolality Calculated 296 mOsm/kg (285-295); Potassium 4.6 mmol/L (3.5-5.1); Sodium 141 mmol/L (136-145); Total Protein 6.6 g/dL (6.4-8.2); Triglycerides 105 mg/dL (0-150)
[2024-04-11 13:03] LABS: Thyroid Stimulating Hormone Reflex 2.23 u/IU/mL (0.36-3.74)
== END 2024-04-11 11:27 | disposition home or self-care (01) ==
LOC: CHSLAB 11:27
PROVIDERS: PCP Nurse Practitioner Family; Visit Provider Nurse Practitioner Family
DX: E11.69 Type 2 diabetes mellitus with other specified complication (principal); E78.5 Hyperlipidemia, unspecified; E11.9 Type 2 diabetes mellitus without complications; I15.2 Hypertension secondary to endocrine disorders; E11.59 Type 2 diabetes mellitus with other circulatory complications; M81.0 Age-related osteoporosis without current pathological fracture
CPT/HCPCS: 36415; 80053; 80061; 83036; 83735; 84443; 85025

== ENCOUNTER 2024-04-14 08:01 | Outpatient (CLI) | payer MEDICARE, SELFPAY ==
[2024-04-14 08:23] LABS: Add Urine Microscopic? NO; Appearance Urine Clear (Clear); Bilirubin Urine Negative (Negative); Blood Urine Negative (Negative); Color Urine Light Yellow (Yellow); Glucose Urine UA 3+ (Negative); Ketones Urine Negative (Negative); Leukocyte Esterase Ur Negative LEU/UL (Negative); Nitrate Urine Negative (Negative); Protein Urine Negative (Negative); Specific Grav Ur 1.015 (1.010-1.020); Urobilinogen Urine 0.2 mg/dL (0.2-1.0)
[2024-04-14 08:44] LABS: Albumin Level 3.8 g/dL (3.4-5.0); Anion Gap 12 mmol/L (4-12); Blood Urea Nitrogen 21 mg/dL (7-18); Calcium 8.5 mg/dL (8.5-10.1); Carbon Dioxide 27 mmol/L (21-32); Chloride 103 mmol/L (98-108); Estimated Glomerular Filt Rate > 60; Glucose 172 mg/dL (70-99); Osmolality Calculated 301 mOsm/kg (285-295); Phosphorus 3.7 mg/dL (2.6-4.7); Potassium 3.9 mmol/L (3.5-5.1); Sodium 142 mmol/L (136-145)
--- OUTSIDE RECORDS SUMMARY | 2024-04-14 11:08 | XMS_ITS | Clinical Summary ---
Author Organization [facility] Address [facility] [place] [address] Care Team Providers Care Women'S Apparel Salesperson Name Role Phone Bertin Langford MD Primary Care Provider [phone] Social History Tobacco Use Types Packs/Day Years [...] patient's age to complete this topic Insurance [facility] Care Teams Women'S Apparel Salesperson Relationship Specialty Start Date End Date Bertin Langford MD [address] [place] [address] PCP - General FAMILY PRACTICE 10/02/18
--- OUTSIDE RECORDS SUMMARY | 2024-04-14 11:08 | XMS_ITS | Clinical Summary ---
Author Organization [employer] [address] [facility] Address [address] [place] [address] Care Team Providers Care Outpatient Surgery Rn Name Role Phone Trisha Kay HEALTH INSURANCE ASSESSOR Primary Care Provider Allergies Active Allergy Reactions [...] 0.4 mg under tongue. 9 Active omega 6-HRX-fwm-fish oil 300-1,000 mg Capsule, Delayed Release(E.C.) Take [...] Comments Blood Pressure 122/82 04/20/2023 10:50 AM STUDENT ADVISOR Pulse - - Temperature - - Respiratory Rate - - Oxygen Saturation - - Inhaled Oxygen Concentration - - Weight 67.9 kg (149 lb 12.8 oz) 024 10:50 AM STUDENT ADVISOR Height 167.6 cm (5' 6 ) 04/20/2023 10:5 0 AM STUDENT ADVISOR Body Mass Index 24.18 04/20/2023 10:50 AM STUDENT ADVISOR Plan of Treatment Health Maintenance Due Date [...] Procedure Name Priority Date/Time Associated Diagnosis Comments [facility] DXA BONE DENSITY STUDY 1/> SITES AXIAL SKEL Routine 05/07/2023 2:01 PM CDT from Last 3 Months or Most Recently Relevant to Health Maintenance Results * [facility] DXA BONE DENSITY STUDY 1/> SITES AXIAL SKEL (05/07/2023 2:01 PM CDT) us Gage Noriega MD [place] - IMAGING Edited Resul t - Final [facility] RAINE [facility] 692B CLIA# [id number] [address] [place] [address] from Last 3 Months or Most Recently Relevant to Health Maintenance Insurance MEDICARE PART A AND B AETNA MEDICARE SUPPLEMENT Care Teams Outpatient Surgery Rn Relationship Specialty Start Date End Date Trisha Kay FNP [address] [place] [address] PCP - General Nurse Practitioner Family 05/20/21
--- OUTSIDE RECORDS SUMMARY | 2024-04-14 11:08 | XMS_ITS | Clinical Summary ---
Author Organization [facility] Address [address] [place] [address] Care Team Providers Care Concrete Truck Driver Name Role Phone Delmer Goss MD Unavailable [...] doses total 30 tablet 2 9 Active ayfth-6-paz-epa -fish oil 300-1,000 mg capsule,delayed release(DR/EC) Take [...] daily Active pen needle, diabetic (Sure-Fine Pen [place]) 31 gauge x 5/16 needle Use to [...] hyperglycemia, with long-term current use of insulin ([facility]) USE TO TEST BLOOD SUGARS 3 TIMES DAILY DX:E11.65 insulin dependent 300 strip 3 4 Active metFORMIN (GLUCOPHAGE) 1,000 mg tablet TAKE 1 TABLET BY MOUTH TWICE A DAY WITH FOOD 180 tablet 3 4 Active insulin degludec (TRESIBA) 100 unit/mL (3 mL) pen for injectionIndica tions:Type 2 diabetes mellitus with hyperglycemia, with long-term current use of insulin ([facility]) INJECT 20 UNITS TOTAL UNDER THE SKIN NIGHTLY 15 mL 3 4 Active Farxiga 10 mg tabletIndicatio ns:Type 2 diabetes mellitus with hyperglycemia, with long-term current use of insulin ([facility]) TAKE 1 TABLET BY MOUTH EVERY DAY [...] High-fiber diet. Coronary artery disease invo lving [place] coronary artery of [place] heart without angina pectoris 07/17/2018 Assessment & Plan (01/08/2023 2:33 PM INSTRUCTIONAL SPECIALIST): Stable status post recent repeat stenting of [...] regularly. Assessment & Plan (04/26/2020 3:45 PM INSTRUCTIONAL SPECIALIST): Stable, without angina. I made no change in her excellent medical regimen today. I asked her to follow up with me annually, sooner if needed. I again advised her to diet and exercise regularly. Assessment & Plan (04/28/2019 3:47 PM INSTRUCTIONAL SPECIALIST): Stable, without angina. I made no change [...] and diligent control of DM which her network design architect manages. Assessment & Plan (07/18/2018 2:37 PM [...] 07/17/2018 Assessment & Plan (01/08/2023 2:33 PM INSTRUCTIONAL SPECIALIST): Well controlled. Continue same therapy. Continue diet and exercise. Assessment & Plan (06/16/2022 10:40 AM CDT): Blood pressure is well controlled. Continue same therapy. Continue diet and exercise. Assessment & Plan (06/13/2021 11:15 AM CDT): Blood pressure is well controlled. Continue same therapy. Continue diet and exercise. Assessment & Plan (04/26/2020 3:45 PM INSTRUCTIONAL SPECIALIST): Blood pressure is well controlled. Continue same [...] daily Assessment & Plan (01/08/2023 2:34 PM INSTRUCTIONAL SPECIALIST): Well controlled. Continue high-intensity statin therapy. Assessment & Plan (11/10/2022 10:42 AM CDT): Chronic problem. Controlled on current Atorvastatin 40mg. Last lipid panel: 12/29/21 LDL=60, TC=094. Assessment & Plan (12/29/2021 3:37 PM CDT): [...] therapy Assessment & Plan (05/01/2019 4:15 PM INSTRUCTIONAL SPECIALIST): Goal of treatment , LDL cholesterol less [...] Lipitor Assessment & Plan (04/28/2019 3:47 PM INSTRUCTIONAL SPECIALIST): Lipids are very well controlled. Continue high-intensity [...] therapy Assessment & Plan (04/24/2018 4:31 PM INSTRUCTIONAL SPECIALIST): Goal of treatment , LDL cholesterol less [...] therapy Assessment & Plan (01/27/2018 11:11 AM INSTRUCTIONAL SPECIALIST): Check lipid panel and adjust statin accordingly Type 2 diabetes mellitus wit h hyperglycemia, with long-term current use of insulin 07/02/2013 Overview (06/02/2016): DMII WO CMP UNCNTRLD Assessment & Plan (02/15/2024 11:04 AM INSTRUCTIONAL SPECIALIST): Chronic, not at goal with higher A1c [...] current Assessment & Plan (05/01/2019 4:14 PM INSTRUCTIONAL SPECIALIST): Hba1c was Lab Results Component Value Date [...] untis Assessment & Plan (04/24/2018 4:31 PM INSTRUCTIONAL SPECIALIST): Hba1c was Lab Results Component Value Date HGBA1C 6.9 04/24/2018 today, indicating DM control 1800 calorie, consistent carb diet recommended 25-45 min daily aerobic and resistance exercise recommended Prevention and treatment of hyypoglcyemia discussed. Blood glucose monitoring with fingers sticks 1-2 x day . Continue Basaglar, Victoza , Farxiga and Metformin . Assessment & Plan (01/27/2018 10:59 AM INSTRUCTIONAL SPECIALIST): A1c 6.7. Trending upward. No change to medication. Advised to continue to focus on diet and exercise. Assessment & Plan (10/17/2017 10:52 AM CDT): Your Hba1c today was: Lab Results Component Value Date HGBA1C 6.2 10/17/2017 meaning a 3 month average sugar of : 121 Your goal hba1c is under 7.0 to prevent chcf diabetes complications ( eye , kidney and [...] units. Assessment & Plan (04/17/2017 3:27 PM INSTRUCTIONAL SPECIALIST): Hba1c was 5.8 today, indicating proper DM control 1800 calorie, consistent carb diet recommended 30 min daily aerobic and resistance exercise recommended Prevention and treatment of hyypoglcyemia discussed. Blood glucose monitoring with fingers sticks 1-2 x day . Lower Basaglar to 14 units Assessment & Plan (01/12/2017 10:14 AM INSTRUCTIONAL SPECIALIST): Hba1c was 5.8 today, indicating adequate DM [...] therapy. Assessment & Plan (04/26/2020 3:46 PM INSTRUCTIONAL SPECIALIST): Lipids are very well controlled. Continue high-intensity [...] therapy. Assessment & Plan (04/17/2017 3:20 PM INSTRUCTIONAL SPECIALIST): Goal of treatment , LDL cholesterol less [...] therapy Assessment & Plan (01/12/2017 10:08 AM INSTRUCTIONAL SPECIALIST): Goal of treatment , LDL cholesterol less [...] Unspecified Assessment & Plan (02/15/2024 11:05 AM INSTRUCTIONAL SPECIALIST): Chronic, stable. Continue current regimen including lisinopril [...] microalbumin Assessment & Plan (05/01/2019 4:14 PM INSTRUCTIONAL SPECIALIST): Goal blood pressure is less than 140/85 Low salt diet recommended Daily aerobic exercise Continue current meds, including MOIRA-I or ARB Assessment & Plan (04/28/2019 3:47 PM INSTRUCTIONAL SPECIALIST): Blood pressure is excellent. Continue same therapy. Continue diet and exercise. Assessment & Plan (10/23/2018 4:10 PM CDT): Goal blood pressure is less than 140/85 Low salt diet recommended Daily aerobic exercise Continue current meds, including MOIRA-I or ARB Assessment & Plan (04/24/2018 4:31 PM INSTRUCTIONAL SPECIALIST): Goal blood pressure is less than 140/85 Low salt diet recommended Daily aerobic exercise Continue current meds, including MOIRA-I or ARB Check microalbumin Assessment & Plan (01/27/2018 11:11 AM INSTRUCTIONAL SPECIALIST): Controlled on current medications. Assessment & Plan (10/17/2017 12:49 PM CDT): Goal blood pressure is less than 140/85 Low salt diet recommended Daily aerobic exercise Continue current meds. Assessment & Plan (04/17/2017 3:20 PM INSTRUCTIONAL SPECIALIST): Goal blood pressure is less than 140/85 Low salt diet recommended Daily aerobic exercise Continue current meds, including MOIRA-I or ARB Assessment & Plan (01/12/2017 10:08 AM INSTRUCTIONAL SPECIALIST): Goal blood pressure is less than 140/85 [...] (09/09/2018): Added automatically from request for surgery [id number] Acute chest pain 08/30/2018 11/25/2019 Assessment & Plan (08/30/2018 11:54 AM CDT): Similar to chest pain prior to AR, however atypical in that she is usually [...] absence. NSTEMI (non-ST elevated myoc ardial infarction) ([facility]) 06/12/2018 11/25/2019 Overview (06/12/2018): Added automatically from request for surgery [id number] Encounters Date Type Department Care Team Description 03/17/2024 Telephone [facility] [address] [address] Dlemer Goss MD PA in [facility] Ozempic 02/15/2024 10:51 AM INSTRUCTIONAL SPECIALIST - 02/15/2024 11:59 PM INSTRUCTIONAL SPECIALIST Hospital Encounter [address] [address] Type 2 diabetes mellitus with hyperglycemia, with long-term current use of insulin ([facility]) Discharge Disposition: Discharge to home or self care 02/15/2024 9:00 AM INSTRUCTIONAL SPECIALIST Office Visit [facility] [address] [address] Delmer Goss MD Type 2 diabetes mellitus with hyperglycemia, with long-term current use of insulin (HCC) (Primary Dx); Hypertension associated with diabetes (HCC) 02/08/2024 11:15 AM INSTRUCTIONAL SPECIALIST Office Visit [facility] [address] [place] [id number] Dylan Mosley MD Coronary artery disease involving [place] coronary artery of [place] heart without angina pectoris (Primary Dx); S/P [...] artery disease Non-STEMI (non-ST elevated myocardial infarction) ([facility]/H[facility]) ([facility]) Acute chest pain 08/30/2018 NSTEMI (non-ST elevated myocardial infarction) ([facility]) ([facility]) 06/12/2018 Added automatically from request for surgery [id number] Osteoporosis GERD (gastroesophageal reflu x disease) 2 yrs ago Anxiety 1989 Arthritis 2019 Cataract 2011 Depression 1989 Heart disease Heart disease. 2 tiesha nts placed in 2019 heart mike Family [...] on file Legal Sex Female 2:00 AM INSTRUCTIONAL SPECIALIST Gender Identity Not on file Sexual Orientation Straight 02/15/2024 9: 20 AM INSTRUCTIONAL SPECIALIST Obstetrics History Last Filed Vital Signs Vital Sign Reading Time Taken Comments Blood Pressure 122/80 02/15/2024 9:24 AM INSTRUCTIONAL SPECIALIST Pulse 68 02/15/2024 9:24 AM INSTRUCTIONAL SPECIALIST Temperature 36.6 C (97.9 F) 10/17/2022 1:42 PM CDT Respiratory Rate 18 02/15/2024 9:24 AM INSTRUCTIONAL SPECIALIST Oxygen Saturation 97% 02/08/2024 11: 24 AM INSTRUCTIONAL SPECIALIST Inhaled Oxygen Concentration - - Weight 69.8 kg (153 lb 12.8 oz) 02/15/2024 9:24 AM INSTRUCTIONAL SPECIALIST Height 167.6 cm (5' 6 ) 02/15/2024 9:24 AM INSTRUCTIONAL SPECIALIST Body Mass Index 24.82 02/15/2024 9:24 AM INSTRUCTIONAL SPECIALIST Plan of Treatment Health Maintenance Due Date [...] 02/03/2022, 01/11/2017 Medical Devices Implanted Type Area Egg Separator Device Identifier Shelf Expiration Date Model / Serial / Lot [employer] Enriqueta [id number] Synergy 3mm 24mm 144cm Radiopaque 1 Access Port Inflation Lumen - [id number] Implanted:Qty : 1 on 06/12/2018 by Alejandro Wagner MD at [facility] Stent N/A: Coronary [employer] Enriqueta 03/19/2020 [id number] / / [id number] Description:To OM [employer]eta [id number] Synergy 3mm 16mm 144cm Radiopaque 1 Access Port Inflation Lumen - [id number] Implanted:Qty : 1 on 09/10/2018 by Alfredito Porter MD at [facility] Stent N/A: Coronary [employer] En[employer]eta 04/30/2020 [id number] / / [id number] Description:LAD [employer] En[employer]eta Synergy Xd Monorail 3mm 20mm 144cm Delivery System 1 Access Port [id number] - S0 - [id number] Implanted:Qty : 1 on 10/16/2022 by Rishabh Bishop MD at [facility] Stent N/A: Coronary Artery [employer] Enriqueta 05/15/2024 [id number] / 0 / [id number] [employer] Enri[employer] Angio-Seal Vip 6fr Closere Device [id number] - S0 - [id number] Implanted:Qty : 1 on 10/16/2022 by Rishabh Bishop MD at [facility] Vascular Closure Device Right: Coronary Artery [employer] En[employer] 04/26/2023 [id number] / 0 / [id number] Procedures Procedure Name Priority Date/Time Associated Diagnosis Comments POCT GLUCOSE Routine 02/15/2024 9:24 AM INSTRUCTIONAL SPECIALIST Type 2 diabetes mellitus with hyperglycemia, with long-term current use of insulin (HCC) POCT HEMOGLOBIN A1C Routine 02/15/2024 9 :24 AM INSTRUCTIONAL SPECIALIST Type 2 diabetes mellitus with hyperglycemia, with long-term current use of insulin ([facility]) ALBUMIN CREATININE RATIO, URINE Routine 02/15/2024 8:00 AM INSTRUCTIONAL SPECIALIST Type 2 diabetes mellitus with hyperglycemia, with long-term current use of insulin ([facility]) POCT LIPID PANEL Routine 02/08/2024 11:3 5 AM INSTRUCTIONAL SPECIALIST Coronary artery disease involving [place] coronary artery of [place] heart without angina pectoris HM DIABETES EYE EXAM Routine 04/30/2023 10:30 AM INSTRUCTIONAL SPECIALIST EGFR Routine 10/17/2022 3:30 AM CDT COLONOSCOPY 02/03/2022 8:41 AM INSTRUCTIONAL SPECIALIST from Last 3 Months or Most Recently Relevant to Health Maintenance Results * (ABNORMAL) POCT hemoglobin A1c (02/15/2024 9:24 AM INSTRUCTIONAL SPECIALIST) Hemoglobin A1C, POC 8.1 4.0 - 5.6 % Comment:None Capillary blood 02/15/2024 9 :24 AM INSTRUCTIONAL SPECIALIST us Delmer Goss MD POINT OF CARE TEST ORDERABLES Fi nal Result * (ABNORMAL) POCT glucose (02/15/2024 9:24 AM INSTRUCTIONAL SPECIALIST) Glucose Blood, POC 140 mg/dL Comment:None Blood 02/15/2024 9:24 AM INSTRUCTIONAL SPECIALIST us Delmer Goss MD POINT OF CARE TEST ORDERABLES Fi nal Result * Albumin Creatinine Ratio, Urine (02/15/2024 8:00 AM INSTRUCTIONAL SPECIALIST) Albumin Ur <12.0 mg/L Comment: Interpretive Data No reference range established. Current interpretive data was last revised 2018. Creatinine Ur 37.2 mg/dL [facility] Comment: Interpretive Data No reference range established. Current interpretive data was last revised 2018. Albumin Creatinine Ratio, Ur See Comment 1 - 29 [facility] Comment:Unable to calculate Urine 02/15/2024 8:00 AM INSTRUCTIONAL SPECIALIST 02/15/2024 2:53 PM INSTRUCTIONAL SPECIALIST us Delmer Gsos MD LAB URINE ORDERABLES Final Resul t [facility] [id number] Department [place] [address] * POCT lipid panel (02/08/2024 11:35 AM INSTRUCTIONAL SPECIALIST) Cholesterol, POC 147 mg/dL HDL, POC 49 mg/dL Triglycerides, POC 650 mg/dL LDL Cholesterol POC 32 mg/dL Chol/HDL Ratio, POC 0.65 Non-HDL Cholesterol, POC 98 mg/dL Cholesterol Total, POC 147 mg/dL Capillary blood 02/08/2024 1 1:35 AM INSTRUCTIONAL SPECIALIST Dylan Mosley MD POINT OF CARE TEST ORDE AMRIK Final Result * HM DIABETES EYE EXAM (04/30/2023 10:30 AM INSTRUCTIONAL SPECIALIST) Ibrahima Provider HEALTH MAINTENANCE Final Result * eGFR (10/17/2022 3:30 AM CDT) eGFR 98 mL/min/1. 73 m2 [facility] Comment: Interpretive Data Reference Interval Normal [...] MD LAB BLOOD ORDERABLES Fin al Result [facility] [address] Department [place] [address] * COLONOSCOPY (02/03/2022 8:41 AM INSTRUCTIONAL SPECIALIST) Anatomical Region Laterality Modality Other Narrative Procedure Note Kendall Lisa MD - 02/03/2022 8:41 AM CST [facility] Endoscopy Lab Patient Name: Myra Romero Procedure Date: 02/03/2022 8:41 AM Date of : 1955 Admit Type: Outpatient Age: 67 Gender: Female Note Status: Finalized Attending MD: Kendall Lisa M.D. Procedure Date: 02/03/2022 Procedure: Colonoscopy Indications: High risk colon cancer surveillance: Personalhistory of colonic polyps, Last colonoscopy: December2016 Providers: Kendall Lisa M.D., CASANDRA Nunez (Anesthesia Staff), Shari Jose RN, Maxx Thacker,Treasurer Referring MD: Trisha Kay NP Medicines: Monitored [...] bowel preparation was evaluated using the BBPS (Hiram Bowel Preparation Scale) with scores of: Right [...] for surveillance. Procedure Code(s): --- Professional --- 62877, Colonoscopy, flexible; with biopsy, singleor multiple Diagnosis Code(s): --- Professional --- Z86.010, Personal history of colonic polyps D12.2, Benign neoplasm of ascending colon K62.89, Other specified diseases of anus andrectum K57.30, Diverticulosis of large intestine without perforation or abscess without bleeding CPT copyright 2020 [employer]. All rights reserved. The codes documented in this report are preliminary and upon salt machine operator reviewmay be revised to meet current compliance requirements. Electronically signed by Kendall Lisa MD Kendall Lisa M.D. 02/03/2022 9:08:11 AM Number of Addenda: 0 Note Initiated On: 02/03/2022 8:41 AM Kendall Lisa MD ENDOSCOPY PROCEDURES Final Resul t from Last 3 Months or Most Recently Relevant to Health Maintenance Insurance [place] CHO[place] A[employer] SENIOR SUPPLEMENT MEDICARE AETNA SENIOR SUPPLEMENT Advance Directives For more information, please contact: [phone] * Full Code (Latest Code Status on [...] 3:15 PM 06/12/2018 3:16 PM Care Teams Concrete Truck Driver Relationship Specialty Start Date End Date French Browning DO [address] [place] [address] PCP - General Family Medicine 01/08/23 [place] [address] [place] [address] Consulting Physician Endocrinology Diabetes & Metabolism 04/24/18 Alejandro Wagner MD [address] [place] [address] Consulting Physician Cardiology 06/13/18
--- OUTSIDE RECORDS SUMMARY | 2024-04-14 11:08 | XMS_ITS | Referral Summary ---
Author Organization [facility] Address [address] [place] [address] Care Team Providers Care Vegetable Farmer Name Role Phone Delmer Goss MD Unavailable Alejandro Wagner MD Unavailable [phone] French Browning DO Primary Care Provider Encounters Date Type Department Care Team Description 03/17/[address] [facility] [address] [address] Delmer Goss MD PA in [facility] Ozempic 02/15/2024 10:51 AM DEDICATED OWNER OPERATOR - 02/15/2024 11:59 PM DEDICATED OWNER OPERATOR Hospital Encounter [address] [address] Type 2 diabetes mellitus with hyperglycemia, with long-term current use of insulin (HCC) Discharge Disposition: Discharge to home or self care 02/15/2024 9:00 AM DEDICATED OWNER OPERATOR Office Visit [facility] [address] [address] Delmer Goss MD Type 2 diabetes mellitus with hyperglycemia, with long-term current use of insulin (HCC) (Primary Dx); Hypertension associated with diabetes (HCC) 02/08/2024 11:15 AM DEDICATED OWNER OPERATOR Office Visit [facility] [address] [address] Dylan Mosley MD Coronary artery disease involving [place] coronary artery of [place] heart without angina pectoris (Primary Dx); S/P [...] doses total 30 tablet 2 9 Active kmqsz-4-wpi-epa -fish oil 300-1,000 mg capsule,delayed release(DR/EC) Take [...] daily Active pen needle, diabetic (Sure-Fine Pen [place]) 31 gauge x 5/16 needle Use to [...] long-term current use of insulin ([facility]) USE TO TEST BLOOD SUGARS 3 TIMES DAILY DX:E11.65 insulin dependent 300 strip 3 4 Active metFORMIN (GLUCOPHAGE) 1,000 mg tablet TAKE 1 TABLET BY MOUTH TWICE A DAY WITH FOOD 180 tablet 3 4 Active insulin degludec (TRESIBA) 100 unit/mL (3 mL) pen for injectionIndica tions:Type 2 diabetes mellitus with hyperglycemia, with long-term current use of insulin ([facility]) INJECT 20 UNITS TOTAL UNDER THE SKIN NIGHTLY 15 mL 3 4 Active Farxiga 10 mg tabletIndicatio ns:Type 2 diabetes mellitus with hyperglycemia, with long-term current use of insulin ([facility]) TAKE 1 TABLET BY MOUTH [...] High-fiber diet. Coronary artery disease invo lving [place] coronary artery of [place] heart without angina pectoris 07/17/2018 Assessment & Plan (01/08/2023 2:33 PM DEDICATED OWNER OPERATOR): Stable status post recent repeat stenting of [...] regularly. Assessment & Plan (04/26/2020 3:45 PM DEDICATED OWNER OPERATOR): Stable, without angina. I made no change in her excellent medical regimen today. I asked her to follow up with me annually, sooner if needed. I again advised her to diet and exercise regularly. Assessment & Plan (04/28/2019 3:47 PM DEDICATED OWNER OPERATOR): Stable, without angina. I made no change [...] and diligent control of DM which her produce field merchandiser manages. Assessment & Plan (07/18/2018 2:37 PM [...] 07/17/2018 Assessment & Plan (01/08/2023 2:33 PM DEDICATED OWNER OPERATOR): Well controlled. Continue same therapy. Continue diet and exercise. Assessment & Plan (06/16/2022 10:40 AM CDT): Blood pressure is well controlled. Continue same therapy. Continue diet and exercise. Assessment & Plan (06/13/2021 11:15 AM CDT): Blood pressure is well controlled. Continue same therapy. Continue diet and exercise. Assessment & Plan (04/26/2020 3:45 PM DEDICATED OWNER OPERATOR): Blood pressure is well controlled. Continue same [...] daily Assessment & Plan (01/08/2023 2:34 PM DEDICATED OWNER OPERATOR): Well controlled. Continue high-intensity statin therapy. Assessment & Plan (11/10/2022 10:42 AM CDT): Chronic problem. Controlled on current Atorvastatin 40mg. Last lipid panel: 12/29/21 LDL=60, ZQ=295. Assessment & Plan (12/29/2021 3:37 PM CDT): [...] therapy Assessment & Plan (05/01/2019 4:15 PM DEDICATED OWNER OPERATOR): Goal of treatment , LDL cholesterol less [...] Lipitor Assessment & Plan (04/28/2019 3:47 PM DEDICATED OWNER OPERATOR): Lipids are very well controlled. Continue high-intensity [...] therapy Assessment & Plan (04/24/2018 4:31 PM DEDICATED OWNER OPERATOR): Goal of treatment , LDL cholesterol less [...] therapy Assessment & Plan (01/27/2018 11:11 AM DEDICATED OWNER OPERATOR): Check lipid panel and adjust statin accordingly Type 2 diabetes mellitus wit h hyperglycemia, with long-term current use of insulin 07/02/2013 Overview (06/02/2016): DMII WO CMP UNCNTRLD Assessment & Plan (02/15/2024 11:04 AM DEDICATED OWNER OPERATOR): Chronic, not at goal with higher A1c [...] current Assessment & Plan (05/01/2019 4:14 PM DEDICATED OWNER OPERATOR): Hba1c was Lab Results Component Value Date [...] untis Assessment & Plan (04/24/2018 4:31 PM DEDICATED OWNER OPERATOR): Hba1c was Lab Results Component Value Date HGBA1C 6.9 04/24/2018 today, indicating DM control 1800 calorie, consistent carb diet recommended 25-45 min daily aerobic and resistance exercise recommended Prevention and treatment of hyypoglcyemia discussed. Blood glucose monitoring with fingers sticks 1-2 x day . Continue Basaglar, Victoza , Farxiga and Metformin . Assessment & Plan (01/27/2018 10:59 AM DEDICATED OWNER OPERATOR): A1c 6.7. Trending upward. No change to medication. Advised to continue to focus on diet and exercise. Assessment & Plan (10/17/2017 10:52 AM CDT): Your Hba1c today was: Lab Results Component Value Date HGBA1C 6.2 10/17/2017 meaning a 3 month average sugar of : 121 Your goal hba1c is under 7.0 to prevent exterminator helper termite diabetes complications ( eye , kidney and [...] units. Assessment & Plan (04/17/2017 3:27 PM DEDICATED OWNER OPERATOR): Hba1c was 5.8 today, indicating proper DM control 1800 calorie, consistent carb diet recommended 30 min daily aerobic and resistance exercise recommended Prevention and treatment of hyypoglcyemia discussed. Blood glucose monitoring with fingers sticks 1-2 x day . Lower Basaglar to 14 units Assessment & Plan (01/12/2017 10:14 AM DEDICATED OWNER OPERATOR): Hba1c was 5.8 today, indicating adequate DM [...] therapy. Assessment & Plan (04/26/2020 3:46 PM DEDICATED OWNER OPERATOR): Lipids are very well controlled. Continue high-intensity [...] therapy. Assessment & Plan (04/17/2017 3:20 PM DEDICATED OWNER OPERATOR): Goal of treatment , LDL cholesterol less [...] therapy Assessment & Plan (01/12/2017 10:08 AM DEDICATED OWNER OPERATOR): Goal of treatment , LDL cholesterol less [...] Unspecified Assessment & Plan (02/15/2024 11:05 AM DEDICATED OWNER OPERATOR): Chronic, stable. Continue current regimen including lisinopril [...] microalbumin Assessment & Plan (05/01/2019 4:14 PM DEDICATED OWNER OPERATOR): Goal blood pressure is less than 140/85 Low salt diet recommended Daily aerobic exercise Continue current meds, including MOIRA-I or ARB Assessment & Plan (04/28/2019 3:47 PM DEDICATED OWNER OPERATOR): Blood pressure is excellent. Continue same therapy. Continue diet and exercise. Assessment & Plan (10/23/2018 4:10 PM CDT): Goal blood pressure is less than 140/85 Low salt diet recommended Daily aerobic exercise Continue current meds, including MOIRA-I or ARB Assessment & Plan (04/24/2018 4:31 PM DEDICATED OWNER OPERATOR): Goal blood pressure is less than 140/85 Low salt diet recommended Daily aerobic exercise Continue current meds, including MOIRA-I or ARB Check microalbumin Assessment & Plan (01/27/2018 11:11 AM DEDICATED OWNER OPERATOR): Controlled on current medications. Assessment & Plan (10/17/2017 12:49 PM CDT): Goal blood pressure is less than 140/85 Low salt diet recommended Daily aerobic exercise Continue current meds. Assessment & Plan (04/17/2017 3:20 PM DEDICATED OWNER OPERATOR): Goal blood pressure is less than 140/85 Low salt diet recommended Daily aerobic exercise Continue current meds, including MOIRA-I or ARB Assessment & Plan (01/12/2017 10:08 AM DEDICATED OWNER OPERATOR): Goal blood pressure is less than 140/85 [...] (09/09/2018): Added automatically from request for surgery [id number] Acute chest pain 08/30/2018 11/25/2019 Assessment & Plan (08/30/2018 11:54 AM CDT): Similar to chest pain prior to DE, however atypical in that she is usually [...] absence. NSTEMI (non-ST elevated myoc ardial infarction) ([facility]) 06/12/2018 11/25/2019 Overview (06/12/2018): Added automatically from request for surgery [id number] Social History Tobacco Use Types Packs/Day Years [...] on file Legal Sex Female 2:00 AM DEDICATED OWNER OPERATOR Gender Identity Not on file Sexual Orientation Straight 02/15/2024 9: 20 AM DEDICATED OWNER OPERATOR Last Filed Vital Signs Vital Sign Reading Time Taken Comments Blood Pressure 122/80 02/15/2024 9:24 AM DEDICATED OWNER OPERATOR Pulse 68 02/15/2024 9:24 AM DEDICATED OWNER OPERATOR Temperature 36.6 C (97.9 F) 10/17/2022 1:42 PM CDT Respiratory Rate 18 02/15/2024 9:24 AM DEDICATED OWNER OPERATOR Oxygen Saturation 97% 02/08/2024 11: 24 AM DEDICATED OWNER OPERATOR Inhaled Oxygen Concentration - - Weight 69.8 kg (153 lb 12.8 oz) 02/15/2024 9:24 AM DEDICATED OWNER OPERATOR Height 167.6 cm (5' 6 ) 02/15/2024 9:24 AM DEDICATED OWNER OPERATOR Body Mass Index 24.82 02/15/2024 9:24 AM DEDICATED OWNER OPERATOR Plan of Treatment Not on file Medical Devices Implanted Type Area Hand Bindery Assembly Worker Device Identifier Shelf Expiration Date Model / Serial / Lot [employer] [place] [employer] [id number] Synergy 3mm 24mm 144cm Radiopaque 1 Access Port Inflation Lumen - [id number] Implanted:Qty : 1 on 06/12/2018 by Alejandro Wagner MD at [facility] Stent N/A: Coronary [employer] [place] [employer] 03/19/2020 [id number] / / [id number] Description:To OM [employer] [place] [employer] [id number] Synergy 3mm 16mm 144cm Radiopaque 1 Access Port Inflation Lumen - [id number] Implanted:Qty : 1 on 09/10/2018 by Alfredito Porter MD at [facility] Stent N/A: Coronary [employer] [place] [employer] 04/30/2020 [id number] / / [id number] Description:LAD [employer] [place] [employer] Synergy Xd Monorail 3mm 20mm 144cm Delivery System 1 Access Port [id number] - S0 - [id number] Implanted:Qty : 1 on 10/16/2022 by Rishabh Bishop MD at [facility] Stent N/A: Coronary Artery [employer] [place] [employer] 05/15/2024 [id number] / 0 / [id number] [employer] Angio-Seal Vip 6fr Closere Device [id number] - S0 - [id number] Implanted:Qty : 1 on 10/16/2022 by Rishabh Bishop MD at [facility] Vascular Closure Device Right: Coronary Artery [employer] 04/26/2023 [id number] / 0 / [id number] Procedures Procedure Name Priority Date/Time Associated Diagnosis Comments POCT GLUCOSE Routine 02/15/2024 9:24 AM DEDICATED OWNER OPERATOR Type 2 diabetes mellitus with hyperglycemia, with long-term current use of insulin (HCC) POCT HEMOGLOBIN A1C Routine 02/15/2024 9 :24 AM DEDICATED OWNER OPERATOR Type 2 diabetes mellitus with hyperglycemia, with long-term current use of insulin (HCC) ALBUMIN CREATININE RATIO, URINE Routine 02/15/2024 8:00 AM DEDICATED OWNER OPERATOR Type 2 diabetes mellitus with hyperglycemia, with long-term current use of insulin (HCC) POCT LIPID PANEL Routine 02/08/2024 11:3 5 AM DEDICATED OWNER OPERATOR Coronary artery disease involving [place] coronary artery of [place] heart without angina pectoris HM DIABETES EYE EXAM Routine 04/30/2023 10:30 AM DEDICATED OWNER OPERATOR EGFR Routine 10/17/2022 3:30 AM CDT COLONOSCOPY 02/03/2022 8:41 AM DEDICATED OWNER OPERATOR from Last 3 Months or Most Recently Relevant to Health Maintenance Results * (ABNORMAL) POCT hemoglobin A1c (02/15/2024 9:24 AM DEDICATED OWNER OPERATOR) Hemoglobin A1C, POC 8.1 4.0 - 5.6 % Comment:None Capillary blood 02/15/2024 9 :24 AM DEDICATED OWNER OPERATOR us Delmer Goss MD POINT OF CARE TEST ORDERABLES Fi nal Result * (ABNORMAL) POCT glucose (02/15/2024 9:24 AM DEDICATED OWNER OPERATOR) Glucose Blood, POC 140 mg/dL Comment:None Blood 02/15/2024 9:24 AM DEDICATED OWNER OPERATOR us Delmer Goss MD POINT OF CARE TEST ORDERABLES Fi nal Result * Albumin Creatinine Ratio, Urine (02/15/2024 8:00 AM DEDICATED OWNER OPERATOR) Albumin Ur <12.0 mg/L Comment: Interpretive Data No reference range established. Current interpretive data was last revised 2018. Creatinine Ur 37.2 mg/dL [facility] Comment: Interpretive Data No reference range established. Current interpretive data was last revised 2018. Albumin Creatinine Ratio, Ur See Comment 1 - 29 [facility] Comment:Unable to calculate Urine 02/15/2024 8:00 AM DEDICATED OWNER OPERATOR 02/15/2024 2:53 PM DEDICATED OWNER OPERATOR Delmer Goss MD LAB URINE ORDERABLES Final Resul t [facility] [id number] [place] [address] * POCT lipid panel (02/08/2024 11:35 AM DEDICATED OWNER OPERATOR) Cholesterol, POC 147 mg/dL HDL, POC 49 mg/dL Triglycerides, POC 650 mg/dL LDL Cholesterol POC 32 mg/dL Chol/HDL Ratio, POC 0.65 Non-HDL Cholesterol, POC 98 mg/dL Cholesterol Total, POC 147 mg/dL Capillary blood 02/08/2024 1 1:35 AM DEDICATED OWNER OPERATOR Dylan Mosley MD POINT OF CARE TEST CHARISSA ROWLEY Final Result * HM DIABETES EYE EXAM (04/30/2023 10:30 AM DEDICATED OWNER OPERATOR) Ibrahima Zamora MD HEALTH MAINTENANCE Final Result * eGFR (10/17/2022 3:30 AM CDT) eGFR 98 mL/min/1. 73 m2 [facility] Comment: Interpretive Data Reference Interval Normal >/= [...] LAB BLOOD ORDERABLES Fin al Result [facility] [address] [place] [address] * COLONOSCOPY (02/03/2022 8:41 AM DEDICATED OWNER OPERATOR) Anatomical Region Laterality Modality Other Narrative Procedure Note Kendall Lisa MD - 02/03/2022 8:41 AM CST [facility] Endoscopy Lab Patient Name: Myra Romero Procedure Date: 02/03/2022 8:41 AM Date of : 1955 Admit Type: Outpatient Age: 67 Gender: Female Note Status: Finalized Attending MD: Kendall Lisa M.D. Procedure Date: 02/03/2022 Procedure: Colonoscopy Indications: High risk colon cancer surveillance: Personalhistory of colonic polyps, Last colonoscopy: December2016 Providers: Kendall Lisa M.D., CASANDRA Nunez (Anesthesia Staff), Shari Jose RN, Maxx Thacker,Associate Broker Referring MD: Trisha Kay NP Medicines: Monitored [...] bowel preparation was evaluated using the BBPS ([place] Bowel Preparation Scale) with scores of: Right [...] for surveillance. Procedure Code(s): --- Professional --- 18195, Colonoscopy, flexible; with biopsy, singleor multiple Diagnosis Code(s): --- Professional --- Z86.010, Personal history of colonic polyps D12.2, Benign neoplasm of ascending colon K62.89, Other specified diseases of anus andrectum K57.30, Diverticulosis of large intestine without perforation or abscess without bleeding CPT copyright 2020 [employer]. All rights reserved. The codes documented in this report are preliminary and upon dairy truck driver reviewmay be revised to meet current compliance requirements. Electronically signed by Kendall Lisa MD Knedall Lisa M.D. 02/03/2022 9:08:11 AM Number of Addenda: 0 Note Initiated On: 02/03/2022 8:41 AM Kendall Lisa MD ENDOSCOPY PROCEDURES Final Resul t from Last 3 Months or Most Recently Relevant to Health Maintenance Insurance [facility]ICE [facility] [place]PO [place] MEDICARE AETNA SENIOR SUPPLEMENT MEDICARE AETNA SENIOR SUPPLEMENT Advance Directives For more information, please contact: [phone] * Full Code (Latest Code Status on [...] 3:15 PM 06/12/2018 3:16 PM Care Teams Vegetable Farmer Relationship Specialty Start Date End Date French Browning DO [address] [place] [address] PCP - General Family Medicine 01/08/23 [place] [id number] [place] [address] Consulting Physician Endocrinology Diabetes & Metabolism 04/24/18 Alejandro Wagner MD [address] [place] [address] Consulting Physician Cardiology 06/13/18
== END 2024-04-14 08:02 | disposition home or self-care (01) ==
PROVIDERS: PCP Nurse Practitioner Family; Visit Provider Nurse Practitioner Family
DX: R79.89 Other specified abnormal findings of blood chemistry (principal)
CPT/HCPCS: 36415; 80069; 81003

== ENCOUNTER 2024-04-15 16:12 | Observation (INO) | payer MEDICARE, SELFPAY ==
[2024-04-15] VITALS (8 sets, daily range): BP systolic 119–136; BP diastolic 63–93; PULSE 70–79; RESP 13–20; TEMP 36.7; O2SAT 95–98
--- NOTE | ~2024-04-15 | NM_ITS ---
EXAMINATION: NM vanda stress w perfusion DATE: 04/17/2024 10:53 INDICATION: Chest pain TECHNIQUE: Rest images were obtained following intravenous administration of 10.5 mCi Tc99m tetrofosm in (Myoview). The patient was infused intravenously with Lexiscan (Regadenoson). Then, 34.3 mCi Tc99m tetrofosmin (Myoview) was administered intravenously, and stress images were obtained. Data was wisam nstructed into short axis and horizontal and vertical long axis SPECT images. Gated SPECT images were also obtained. COMPARISON: None. FINDINGS: There is no definite reversible or fixed perfusion abnormality to suggest ischemia or infar ction. There is normal left ventricular chamber size, wall motion and ejection fraction. Left ventr icular ejection fraction measures 70%. IMPRESSION: 1. Normal myocardial perfusion at rest and during stress. 2. Left ventricular ejection fraction measuring 70%. Reviewed, dictated and finalized at location A. MARKETING AGENT
--- NOTE | ~2024-04-15 | XR_ITS ---
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 RESULT: Lines, tubes, and devices: Coronary stent. Lungs and pleura: Calcified right lower lung granuloma. Right hemidiaphragm elevation, stable. Other mayen clear. Cardiomediastinal silhouette: Stable. Other: No acute osseous or upper abdominal finding. IMPRESSION: No acute cardiopulmonary process. Reviewed, dictated and finalized at location K. SSES FEED MIXER
--- NOTE | ~2024-04-15 | US_ITS ---
EXAMINATION: US venous doppler UE DATE: 04/16/2024 17:41 INDICATION: Chest pain. Left upper limb deep vein thrombosis. TECHNIQUE: Grayscale ultrasound images without and with compression and Doppler ultrasound images of the left upper extremity veins were obtained. COMPARISON: None. FINDINGS: The visualized portions of the left internal jugular vein, subclavian vein, axillary vein, brachial v eins, basilic vein, cephalic vein, radial vein, and ulnar vein are patent. IMPRESSION: 1. No deep venous thrombosis. Reviewed, dictated and finalized at location A. [employer]
--- NOTE | 2024-04-15 16:13 | ECG_ITS ---
Test Date: 2024-04-15 16:22:43 Measurements Intervals Boss Rate: 66 P: 59 DE: 160 QRS: 13 QRSD: 86 T: 44 QT: 404 QTc: 424 Interpretive Statements SINUS RHYTHM BORDERLINE ST-T WAVE ABNORMALITY IN DIFFUSE LEADS BASELINE ARTIFACT- I, II, III, AVR, AVL, AVF BORDERLINE ECG No previous ECG available for comparison Electronically Signed On 04-15-2024 17:44:09 DIRECTOR CLOUD TRANSFORMATION by Maxime Vuong D.O.
--- OUTSIDE RECORDS SUMMARY | 2024-04-15 16:14 | XMS_ITS | Clinical Summary ---
Author Organization [employer] [id number] [facility] Address [address] [place] [address] Care Team Providers Care Upholstered Goods Crafter Name Role Phone Trisha Kay PHARMACEUTICAL PHYSICIAN Primary Care Provider Allergies Active Allergy Reactions [...] 0.4 mg under tongue. 9 Active omega 9-FQH-nne-fish oil 300-1,000 mg Capsule, Delayed Release(E.C.) Take [...] Comments Blood Pressure 122/82 04/20/2023 10:50 AM GOLD MINER BLASTING Pulse - - Temperature - - Respiratory Rate - - Oxygen Saturation - - Inhaled Oxygen Concentration - - Weight 67.9 kg (149 lb 12.8 oz) 024 10:50 AM GOLD MINER BLASTING Height 167.6 cm (5' 6 ) 04/20/2023 10:5 0 AM GOLD MINER BLASTING Body Mass Index 24.18 04/20/2023 10:50 AM GOLD MINER BLASTING Plan of Treatment Health Maintenance Due Date [...] Procedure Name Priority Date/Time Associated Diagnosis Comments [facility] DXA BONE DENSITY STUDY 1/> SITES AXIAL SKEL Routine 05/07/2023 2:01 PM CDT from Last 3 Months or Most Recently Relevant to Health Maintenance Results * [facility] DXA BONE DENSITY STUDY 1/> SITES AXIAL SKEL (05/07/2023 2:01 PM CDT) us Gage Noriega MD OR - IMAGING Edited Resul t - Final [facility] [employer] RAINE [address] CLIA# [id number] [address] [place] [address] from Last 3 Months or Most Recently Relevant to Health Maintenance Insurance MEDICARE PART A AND B AETNA MEDICARE SUPPLEMENT Care Teams Upholstered Goods Crafter Relationship Specialty Start Date End Date Trisha Kay FNP [address] [place] [address] PCP - General Nurse Practitioner Family 05/20/21
--- OUTSIDE RECORDS SUMMARY | 2024-04-15 16:14 | XMS_ITS | Clinical Summary ---
Author Organization [facility] Address [address] [place] [address] Care Team Providers Care Spinner Continuous Name Role Phone Delmer Goss MD Unavailable [...] doses total 30 tablet 2 9 Active yarbb-8-cnh-epa -fish oil 300-1,000 mg capsule,delayed release(DR/EC) Take [...] daily Active pen needle, diabetic (Sure-Fine Pen [place]) 31 gauge x 5/16 needle Use to [...] long-term current use of insulin ([facility]) USE TO TEST BLOOD SUGARS 3 TIMES DAILY DX:E11.65 insulin dependent 300 strip 3 4 Active metFORMIN (GLUCOPHAGE) 1,000 mg tablet TAKE 1 TABLET BY MOUTH TWICE A DAY WITH FOOD 180 tablet 3 4 Active insulin degludec (TRESIBA) 100 unit/mL (3 mL) pen for injectionIndica tions:Type 2 diabetes mellitus with hyperglycemia, with long-term current use of insulin ([facility]) INJECT 20 UNITS TOTAL UNDER THE SKIN NIGHTLY 15 mL 3 4 Active Farxiga 10 mg tabletIndicatio ns:Type 2 diabetes mellitus with hyperglycemia, with long-term current use of insulin ([facility]) TAKE 1 TABLET BY MOUTH EVERY DAY [...] High-fiber diet. Coronary artery disease invo lving [place] coronary artery of [place] heart without angina pectoris 07/17/2018 Assessment & Plan (01/08/2023 2:33 PM NUT SHELLER MACHINE OPERATOR): Stable status post recent repeat stenting [...] regularly. Assessment & Plan (04/26/2020 3:45 PM NUT SHELLER MACHINE OPERATOR): Stable, without angina. I made no change in her excellent medical regimen today. I asked her to follow up with me annually, sooner if needed. I again advised her to diet and exercise regularly. Assessment & Plan (04/28/2019 3:47 PM NUT SHELLER MACHINE OPERATOR): Stable, without angina. I made no [...] and diligent control of DM which her mercury cracking tester manages. Assessment & Plan (07/18/2018 2:37 PM [...] 07/17/2018 Assessment & Plan (01/08/2023 2:33 PM NUT SHELLER MACHINE OPERATOR): Well controlled. Continue same therapy. Continue diet and exercise. Assessment & Plan (06/16/2022 10:40 AM CDT): Blood pressure is well controlled. Continue same therapy. Continue diet and exercise. Assessment & Plan (06/13/2021 11:15 AM CDT): Blood pressure is well controlled. Continue same therapy. Continue diet and exercise. Assessment & Plan (04/26/2020 3:45 PM NUT SHELLER MACHINE OPERATOR): Blood pressure is well controlled. Continue [...] daily Assessment & Plan (01/08/2023 2:34 PM NUT SHELLER MACHINE OPERATOR): Well controlled. Continue high-intensity statin therapy. Assessment & Plan (11/10/2022 10:42 AM CDT): Chronic problem. Controlled on current Atorvastatin 40mg. Last lipid panel: 12/29/21 LDL=60, MG=614. Assessment & Plan (12/29/2021 3:37 PM CDT): [...] therapy Assessment & Plan (05/01/2019 4:15 PM NUT SHELLER MACHINE OPERATOR): Goal of treatment , LDL cholesterol [...] Lipitor Assessment & Plan (04/28/2019 3:47 PM NUT SHELLER MACHINE OPERATOR): Lipids are very well controlled. Continue [...] therapy Assessment & Plan (04/24/2018 4:31 PM NUT SHELLER MACHINE OPERATOR): Goal of treatment , LDL cholesterol [...] therapy Assessment & Plan (01/27/2018 11:11 AM NUT SHELLER MACHINE OPERATOR): Check lipid panel and adjust statin accordingly Type 2 diabetes mellitus wit h hyperglycemia, with long-term current use of insulin 07/02/2013 Overview (06/02/2016): DMII WO CMP UNCNTRLD Assessment & Plan (02/15/2024 11:04 AM NUT SHELLER MACHINE OPERATOR): Chronic, not at goal with higher [...] current Assessment & Plan (05/01/2019 4:14 PM NUT SHELLER MACHINE OPERATOR): Hba1c was Lab Results Component Value [...] untis Assessment & Plan (04/24/2018 4:31 PM NUT SHELLER MACHINE OPERATOR): Hba1c was Lab Results Component Value Date HGBA1C 6.9 04/24/2018 today, indicating DM control 1800 calorie, consistent carb diet recommended 25-45 min daily aerobic and resistance exercise recommended Prevention and treatment of hyypoglcyemia discussed. Blood glucose monitoring with fingers sticks 1-2 x day . Continue Basaglar, Victoza , Farxiga and Metformin . Assessment & Plan (01/27/2018 10:59 AM NUT SHELLER MACHINE OPERATOR): A1c 6.7. Trending upward. No change to medication. Advised to continue to focus on diet and exercise. Assessment & Plan (10/17/2017 10:52 AM CDT): Your Hba1c today was: Lab Results Component Value Date HGBA1C 6.2 10/17/2017 meaning a 3 month average sugar of : 121 Your goal hba1c is under 7.0 to prevent [facility] diabetes complications ( eye , kidney and [...] units. Assessment & Plan (04/17/2017 3:27 PM NUT SHELLER MACHINE OPERATOR): Hba1c was 5.8 today, indicating proper DM control 1800 calorie, consistent carb diet recommended 30 min daily aerobic and resistance exercise recommended Prevention and treatment of hyypoglcyemia discussed. Blood glucose monitoring with fingers sticks 1-2 x day . Lower Basaglar to 14 units Assessment & Plan (01/12/2017 10:14 AM NUT SHELLER MACHINE OPERATOR): Hba1c was 5.8 today, indicating adequate [...] therapy. Assessment & Plan (04/26/2020 3:46 PM NUT SHELLER MACHINE OPERATOR): Lipids are very well controlled. Continue [...] therapy. Assessment & Plan (04/17/2017 3:20 PM NUT SHELLER MACHINE OPERATOR): Goal of treatment , LDL cholesterol [...] therapy Assessment & Plan (01/12/2017 10:08 AM NUT SHELLER MACHINE OPERATOR): Goal of treatment , LDL cholesterol [...] Unspecified Assessment & Plan (02/15/2024 11:05 AM NUT SHELLER MACHINE OPERATOR): Chronic, stable. Continue current regimen including [...] microalbumin Assessment & Plan (05/01/2019 4:14 PM NUT SHELLER MACHINE OPERATOR): Goal blood pressure is less than 140/85 Low salt diet recommended Daily aerobic exercise Continue current meds, including MOIRA-I or ARB Assessment & Plan (04/28/2019 3:47 PM NUT SHELLER MACHINE OPERATOR): Blood pressure is excellent. Continue same therapy. Continue diet and exercise. Assessment & Plan (10/23/2018 4:10 PM CDT): Goal blood pressure is less than 140/85 Low salt diet recommended Daily aerobic exercise Continue current meds, including MOIRA-I or ARB Assessment & Plan (04/24/2018 4:31 PM NUT SHELLER MACHINE OPERATOR): Goal blood pressure is less than 140/85 Low salt diet recommended Daily aerobic exercise Continue current meds, including MOIRA-I or ARB Check microalbumin Assessment & Plan (01/27/2018 11:11 AM NUT SHELLER MACHINE OPERATOR): Controlled on current medications. Assessment & Plan (10/17/2017 12:49 PM CDT): Goal blood pressure is less than 140/85 Low salt diet recommended Daily aerobic exercise Continue current meds. Assessment & Plan (04/17/2017 3:20 PM NUT SHELLER MACHINE OPERATOR): Goal blood pressure is less than 140/85 Low salt diet recommended Daily aerobic exercise Continue current meds, including MOIRA-I or ARB Assessment & Plan (01/12/2017 10:08 AM NUT SHELLER MACHINE OPERATOR): Goal blood pressure is less than [...] (09/09/2018): Added automatically from request for surgery [id number] Acute chest pain 08/30/2018 11/25/2019 Assessment & Plan (08/30/2018 11:54 AM CDT): Similar to chest pain prior to ID, however atypical in that she is usually [...] absence. NSTEMI (non-ST elevated myoc ardial infarction) ([facility]) 06/12/2018 11/25/2019 Overview (06/12/2018): Added automatically from request for surgery [id number] Encounters Date Type Department Care Team Description 03/17/2024 Telephone [facility] [address] [address] Delmer Goss MD PA in [facility] Ozempic 02/15/2024 10:51 AM NUT SHELLER MACHINE OPERATOR - 02/15/2024 11:59 PM NUT SHELLER MACHINE OPERATOR Hospital Encounter [address] [address] Type 2 diabetes mellitus with hyperglycemia, with long-term current use of insulin ([facility]) Discharge Disposition: Discharge to home or self care 02/15/2024 9:00 AM NUT SHELLER MACHINE OPERATOR Office Visit [facility] [address] [address] Delmer Goss MD Type 2 diabetes mellitus with hyperglycemia, with long-term current use of insulin (HCC) (Primary Dx); Hypertension associated with diabetes (HCC) 02/08/2024 11:15 AM NUT SHELLER MACHINE OPERATOR Office Visit [facility] [address] [place] [id number] Dlyan Mosley MD Coronary artery disease involving [place] coronary artery of [place] heart without angina pectoris (Primary Dx); S/P [...] artery disease Non-STEMI (non-ST elevated myocardial infarction) ([facility]/H[facility]) ([facility]) Acute chest pain 08/30/2018 NSTEMI (non-ST elevated myocardial infarction) ([facility]) ([facility]) 06/12/2018 Added automatically from request for surgery [id number] Osteoporosis GERD (gastroesophageal reflu x disease) 2 [...] on file Legal Sex Female 2:00 AM NUT SHELLER MACHINE OPERATOR Gender Identity Not on file Sexual Orientation Straight 02/15/2024 9: 20 AM NUT SHELLER MACHINE OPERATOR Obstetrics History Last Filed Vital Signs Vital Sign Reading Time Taken Comments Blood Pressure 122/80 02/15/2024 9:24 AM NUT SHELLER MACHINE OPERATOR Pulse 68 02/15/2024 9:24 AM NUT SHELLER MACHINE OPERATOR Temperature 36.6 C (97.9 F) 10/17/2022 1:42 PM CDT Respiratory Rate 18 02/15/2024 9:24 AM NUT SHELLER MACHINE OPERATOR Oxygen Saturation 97% 02/08/2024 11: 24 AM NUT SHELLER MACHINE OPERATOR Inhaled Oxygen Concentration - - Weight 69.8 kg (153 lb 12.8 oz) 02/15/2024 9:24 AM NUT SHELLER MACHINE OPERATOR Height 167.6 cm (5' 6 ) 02/15/2024 9:24 AM NUT SHELLER MACHINE OPERATOR Body Mass Index 24.82 02/15/2024 9:24 AM NUT SHELLER MACHINE OPERATOR Plan of Treatment Health Maintenance Due Date [...] 02/03/2022, 01/11/2017 Medical Devices Implanted Type Area Weir Fisher Device Identifier Shelf Expiration Date Model / Serial / Lot [employer] [id number] Synergy 3mm 24mm 144cm Radiopaque 1 Access Port Inflation Lumen - [id number] Implanted:Qty : 1 on 06/12/2018 by Alejandro Wagner MD at [facility] Stent N/A: Coronary [employer] 03/19/2020 [id number] / / [id number] Description:To OM [employer] [id number] Synergy 3mm 16mm 144cm Radiopaque 1 Access Port Inflation Lumen - [id number] Implanted:Qty : 1 on 09/10/2018 by Alfredito Porter MD at [facility] Stent N/A: Coronary [employer] 04/30/2020 [id number] / / [id number] Description:LAD [employer] Synergy Xd Monorail 3mm 20mm 144cm Delivery System 1 Access Port [id number] - S0 - [id number] Implanted:Qty : 1 on 10/16/2022 by Rishabh Bishop MD at [facility] Stent N/A: Coronary Artery [employer] 05/15/2024 [id number] / 0 / [id number] [employer] Angio-Seal Vip 6fr Closere Device [id number] - S0 - [id number] Implanted:Qty : 1 on 10/16/2022 by Rishabh Bishop MD at [facility] Vascular Closure Device Right: Coronary Artery [employer] 04/26/2023 [id number] 0 / [id number] Procedures Procedure Name Priority Date/Time Associated Diagnosis Comments POCT GLUCOSE Routine 02/15/2024 9:24 AM NUT SHELLER MACHINE OPERATOR Type 2 diabetes mellitus with hyperglycemia, with long-term current use of insulin (HCC) POCT HEMOGLOBIN A1C Routine 02/15/2024 9 :24 AM NUT SHELLER MACHINE OPERATOR Type 2 diabetes mellitus with hyperglycemia, with long-term current use of insulin ([facility]) ALBUMIN CREATININE RATIO, URINE Routine 02/15/2024 8:00 AM NUT SHELLER MACHINE OPERATOR Type 2 diabetes mellitus with hyperglycemia, with long-term current use of insulin ([facility]) POCT LIPID PANEL Routine 02/08/2024 11:3 5 AM NUT SHELLER MACHINE OPERATOR Coronary artery disease involving [place] coronary artery of [place] heart without angina pectoris HM DIABETES EYE EXAM Routine 04/30/2023 10:30 AM NUT SHELLER MACHINE OPERATOR EGFR Routine 10/17/2022 3:30 AM CDT COLONOSCOPY 02/03/2022 8:41 AM NUT SHELLER MACHINE OPERATOR from Last 3 Months or Most Recently Relevant to Health Maintenance Results * (ABNORMAL) POCT hemoglobin A1c (02/15/2024 9:24 AM NUT SHELLER MACHINE OPERATOR) Hemoglobin A1C, POC 8.1 4.0 - 5.6 % Comment:None Capillary blood 02/15/2024 9 :24 AM NUT SHELLER MACHINE OPERATOR us Delmer Goss MD POINT OF CARE TEST ORDERABLES Fi nal Result * (ABNORMAL) POCT glucose (02/15/2024 9:24 AM NUT SHELLER MACHINE OPERATOR) Glucose Blood, POC 140 mg/dL Comment:None Blood 02/15/2024 9:24 AM NUT SHELLER MACHINE OPERATOR us Delmer Goss MD POINT OF CARE TEST ORDERABLES Fi nal Result * Albumin Creatinine Ratio, Urine (02/15/2024 8:00 AM NUT SHELLER MACHINE OPERATOR) Albumin Ur <12.0 mg/L Comment: Interpretive Data No reference range established. Current interpretive data was last revised 2018. Creatinine Ur 37.2 mg/dL [facility] Comment: Interpretive Data No reference range established. Current interpretive data was last revised 2018. Albumin Creatinine Ratio, Ur See Comment 1 - 29 [facility] Comment:Unable to calculate Urine 02/15/2024 8:00 AM NUT SHELLER MACHINE OPERATOR 02/15/2024 2:53 PM NUT SHELLER MACHINE OPERATOR us Delmer Goss MD LAB URINE ORDERABLES Final Resul t [facility] [id number] Department [place] [address] * POCT lipid panel (02/08/2024 11:35 AM NUT SHELLER MACHINE OPERATOR) Cholesterol, POC 147 mg/dL HDL, POC 49 mg/dL Triglycerides, POC 650 mg/dL LDL Cholesterol POC 32 mg/dL Chol/HDL Ratio, POC 0.65 Non-HDL Cholesterol, POC 98 mg/dL Cholesterol Total, POC 147 mg/dL Capillary blood 02/08/2024 1 1:35 AM NUT SHELLER MACHINE OPERATOR Dylan Mosley MD POINT OF CARE TEST ORDE AMRIK Final Result * HM DIABETES EYE EXAM (04/30/2023 10:30 AM NUT SHELLER MACHINE OPERATOR) Ibrahima Provider HEALTH MAINTENANCE Final Result * eGFR (10/17/2022 3:30 AM CDT) eGFR 98 mL/min/1. 73 m2 [facility] Comment: Interpretive Data Reference Interval Normal >/= [...] MD LAB BLOOD ORDERABLES Fin al Result [facility] [address] Department [place] [address] * COLONOSCOPY (02/03/2022 8:41 AM NUT SHELLER MACHINE OPERATOR) Anatomical Region Laterality Modality Other Narrative Procedure Note Kendall Lisa MD - 02/03/2022 8:41 AM CST [facility] Patient Name: Myra Romero Procedure Date: 02/03/2022 8:41 AM Date of : 1955 Admit Type: Outpatient Age: 67 Gender: Female Note Status: Finalized Attending MD: Kendall Lisa M.D. Procedure Date: 02/03/2022 Procedure: Colonoscopy Indications: High risk colon cancer surveillance: Personalhistory of colonic polyps, Last colonoscopy: December2016 Providers: Kendall Lisa M.D., CASANDRA Nunez (Anesthesia Staff), Shari Jose RN, Maxx Thacker,Septic Pump Truck Driver Referring MD: Trisha Kay NP Medicines: Monitored [...] bowel preparation was evaluated using the BBPS ([place] Bowel Preparation Scale) with scores of: Right [...] for surveillance. Procedure Code(s): --- Professional --- 52552, Colonoscopy, flexible; with biopsy, singleor multiple Diagnosis Code(s): --- Professional --- Z86.010, Personal history of colonic polyps D12.2, Benign neoplasm of ascending colon K62.89, Other specified diseases of anus andrectum K57.30, Diverticulosis of large intestine without perforation or abscess without bleeding CPT copyright 2020 [employer]. All rights reserved. The codes documented in this report are preliminary and upon geoduck diver reviewmay be revised to meet current compliance [...] Advance Directives For more information, please contact: [phone] * Full Code (Latest Code Status on [...] 3:15 PM 06/12/2018 3:16 PM Care Teams Spinner Continuous Relationship Specialty Start Date End Date French Browning DO [address] [place] [address] PCP - General Family Medicine 01/08/23 [place] [address] [place] [address] Consulting Physician Endocrinology Diabetes & Metabolism 04/24/18 Alejandro Wagner MD [address] [place] [address] Consulting Physician Cardiology 06/13/18
--- OUTSIDE RECORDS SUMMARY | 2024-04-15 16:14 | XMS_ITS | Referral Summary ---
Author Organization [facility] Address [address] [place] [address] Care Team Providers Care Boxing Promoter Name Role Phone Delmer Goss MD Unavailable Alejandro Wagner MD Unavailable [phone] French Browning DO Primary Care Provider Encounters Date Type Department Care Team Description 03/17/2024 Telephone [facility] [address] [address] Delmer Goss MD PA in [facility] Ozempic 02/15/2024 10:51 AM EDUCATION GENERAL MANAGER - 02/15/2024 11:59 PM EDUCATION GENERAL MANAGER Hospital Encounter [address] [address] Type 2 diabetes mellitus with hyperglycemia, with long-term current use of insulin (HCC) Discharge Disposition: Discharge to home or self care 02/15/2024 9:00 AM EDUCATION GENERAL MANAGER Office Visit [facility] [address] [address] Delmer Goss MD Type 2 diabetes mellitus with hyperglycemia, with long-term current use of insulin (HCC) (Primary Dx); Hypertension associated with diabetes (HCC) 02/08/2024 11:15 AM EDUCATION GENERAL MANAGER Office Visit [facility] [address] [address] Dylan Mosley MD 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 (Primary Dx); S/P [...] doses total 30 tablet 2 9 Active [id number]-epa -fish oil 300-1,000 mg capsule,delayed release(DR/EC) Take [...] daily Active pen needle, diabetic (Sure-Fine Pen [place]) 31 gauge x 5/16 needle Use to [...] hyperglycemia, with long-term current use of insulin ([facility]) USE TO TEST BLOOD SUGARS 3 TIMES DAILY DX:E11.65 insulin dependent 300 strip 3 4 Active metFORMIN (GLUCOPHAGE) 1,000 mg tablet TAKE 1 TABLET BY MOUTH TWICE A DAY WITH FOOD 180 tablet 3 4 Active insulin degludec (TRESIBA) 100 unit/mL (3 mL) pen for injectionIndica tions:Type 2 diabetes mellitus with hyperglycemia, with long-term current use of insulin ([facility]) INJECT 20 UNITS TOTAL UNDER THE SKIN NIGHTLY 15 mL 3 4 Active Farxiga 10 mg tabletIndicatio ns:Type 2 diabetes mellitus with hyperglycemia, with long-term current use of insulin ([facility]) TAKE 1 TABLET BY MOUTH EVERY DAY [...] High-fiber diet. Coronary artery disease invo lving te-moak coronary artery of te-moak heart without angina pectoris 07/17/2018 Assessment & Plan (01/08/2023 2:33 PM EDUCATION GENERAL MANAGER): Stable status post recent repeat stenting of [...] regularly. Assessment & Plan (04/26/2020 3:45 PM EDUCATION GENERAL MANAGER): Stable, without angina. I made no change in her excellent medical regimen today. I asked her to follow up with me annually, sooner if needed. I again advised her to diet and exercise regularly. Assessment & Plan (04/28/2019 3:47 PM EDUCATION GENERAL MANAGER): Stable, without angina. I made no change [...] and diligent control of DM which her learning technologies specialist manages. Assessment & Plan (07/18/2018 2:37 PM [...] 07/17/2018 Assessment & Plan (01/08/2023 2:33 PM EDUCATION GENERAL MANAGER): Well controlled. Continue same therapy. Continue diet and exercise. Assessment & Plan (06/16/2022 10:40 AM CDT): Blood pressure is well controlled. Continue same therapy. Continue diet and exercise. Assessment & Plan (06/13/2021 11:15 AM CDT): Blood pressure is well controlled. Continue same therapy. Continue diet and exercise. Assessment & Plan (04/26/2020 3:45 PM EDUCATION GENERAL MANAGER): Blood pressure is well controlled. Continue same [...] daily Assessment & Plan (01/08/2023 2:34 PM EDUCATION GENERAL MANAGER): Well controlled. Continue high-intensity statin therapy. Assessment & Plan (11/10/2022 10:42 AM CDT): Chronic problem. Controlled on current Atorvastatin 40mg. Last lipid panel: 12/29/21 LDL=60, YN=235. Assessment & Plan (12/29/2021 3:37 PM CDT): [...] therapy Assessment & Plan (05/01/2019 4:15 PM EDUCATION GENERAL MANAGER): Goal of treatment , LDL cholesterol less [...] Lipitor Assessment & Plan (04/28/2019 3:47 PM EDUCATION GENERAL MANAGER): Lipids are very well controlled. Continue high-intensity [...] therapy Assessment & Plan (04/24/2018 4:31 PM EDUCATION GENERAL MANAGER): Goal of treatment , LDL cholesterol less [...] therapy Assessment & Plan (01/27/2018 11:11 AM EDUCATION GENERAL MANAGER): Check lipid panel and adjust statin accordingly Type 2 diabetes mellitus wit h hyperglycemia, with long-term current use of insulin 07/02/2013 Overview (06/02/2016): DMII WO CMP UNCNTRLD Assessment & Plan (02/15/2024 11:04 AM EDUCATION GENERAL MANAGER): Chronic, not at goal with higher A1c [...] current Assessment & Plan (05/01/2019 4:14 PM EDUCATION GENERAL MANAGER): Hba1c was Lab Results Component Value Date [...] untis Assessment & Plan (04/24/2018 4:31 PM EDUCATION GENERAL MANAGER): Hba1c was Lab Results Component Value Date HGBA1C 6.9 04/24/2018 today, indicating DM control 1800 calorie, consistent carb diet recommended 25-45 min daily aerobic and resistance exercise recommended Prevention and treatment of hyypoglcyemia discussed. Blood glucose monitoring with fingers sticks 1-2 x day . Continue Basaglar, Victoza , Farxiga and Metformin . Assessment & Plan (01/27/2018 10:59 AM EDUCATION GENERAL MANAGER): A1c 6.7. Trending upward. No change to medication. Advised to continue to focus on diet and exercise. Assessment & Plan (10/17/2017 10:52 AM CDT): Your Hba1c today was: Lab Results Component Value Date HGBA1C 6.2 10/17/2017 meaning a 3 month average sugar of : 121 Your goal hba1c is under 7.0 to prevent termite control technician diabetes complications ( eye , kidney and [...] units. Assessment & Plan (04/17/2017 3:27 PM EDUCATION GENERAL MANAGER): Hba1c was 5.8 today, indicating proper DM control 1800 calorie, consistent carb diet recommended 30 min daily aerobic and resistance exercise recommended Prevention and treatment of hyypoglcyemia discussed. Blood glucose monitoring with fingers sticks 1-2 x day . Lower Basaglar to 14 units Assessment & Plan (01/12/2017 10:14 AM EDUCATION GENERAL MANAGER): Hba1c was 5.8 today, indicating adequate DM [...] therapy. Assessment & Plan (04/26/2020 3:46 PM EDUCATION GENERAL MANAGER): Lipids are very well controlled. Continue high-intensity [...] therapy. Assessment & Plan (04/17/2017 3:20 PM EDUCATION GENERAL MANAGER): Goal of treatment , LDL cholesterol less [...] therapy Assessment & Plan (01/12/2017 10:08 AM EDUCATION GENERAL MANAGER): Goal of treatment , LDL cholesterol less [...] Unspecified Assessment & Plan (02/15/2024 11:05 AM EDUCATION GENERAL MANAGER): Chronic, stable. Continue current regimen including lisinopril [...] microalbumin Assessment & Plan (05/01/2019 4:14 PM EDUCATION GENERAL MANAGER): Goal blood pressure is less than 140/85 Low salt diet recommended Daily aerobic exercise Continue current meds, including MOIRA-I or ARB Assessment & Plan (04/28/2019 3:47 PM EDUCATION GENERAL MANAGER): Blood pressure is excellent. Continue same therapy. Continue diet and exercise. Assessment & Plan (10/23/2018 4:10 PM CDT): Goal blood pressure is less than 140/85 Low salt diet recommended Daily aerobic exercise Continue current meds, including MOIRA-I or ARB Assessment & Plan (04/24/2018 4:31 PM EDUCATION GENERAL MANAGER): Goal blood pressure is less than 140/85 Low salt diet recommended Daily aerobic exercise Continue current meds, including MOIRA-I or ARB Check microalbumin Assessment & Plan (01/27/2018 11:11 AM EDUCATION GENERAL MANAGER): Controlled on current medications. Assessment & Plan (10/17/2017 12:49 PM CDT): Goal blood pressure is less than 140/85 Low salt diet recommended Daily aerobic exercise Continue current meds. Assessment & Plan (04/17/2017 3:20 PM EDUCATION GENERAL MANAGER): Goal blood pressure is less than 140/85 Low salt diet recommended Daily aerobic exercise Continue current meds, including MOIRA-I or ARB Assessment & Plan (01/12/2017 10:08 AM EDUCATION GENERAL MANAGER): Goal blood pressure is less than 140/85 [...] (09/09/2018): Added automatically from request for surgery [id number] Acute chest pain 08/30/2018 11/25/2019 Assessment & [...] absence. NSTEMI (non-ST elevated myoc ardial infarction) ([facility]) 06/12/2018 11/25/2019 Overview (06/12/2018): Added automatically from request for surgery [id number] Social History Tobacco Use Types Packs/Day Years [...] on file Legal Sex Female 2:00 AM EDUCATION GENERAL MANAGER Gender Identity Not on file Sexual Orientation Straight 02/15/2024 9: 20 AM EDUCATION GENERAL MANAGER Last Filed Vital Signs Vital Sign Reading Time Taken Comments Blood Pressure 122/80 02/15/2024 9:24 AM EDUCATION GENERAL MANAGER Pulse 68 02/15/2024 9:24 AM EDUCATION GENERAL MANAGER Temperature 36.6 C (97.9 F) 10/17/2022 1:42 PM CDT Respiratory Rate 18 02/15/2024 9:24 AM EDUCATION GENERAL MANAGER Oxygen Saturation 97% 02/08/2024 11: 24 AM EDUCATION GENERAL MANAGER Inhaled Oxygen Concentration - - Weight 69.8 kg (153 lb 12.8 oz) 02/15/2024 9:24 AM EDUCATION GENERAL MANAGER Height 167.6 cm (5' 6 ) 02/15/2024 9:24 AM EDUCATION GENERAL MANAGER Body Mass Index 24.82 02/15/2024 9:24 AM EDUCATION GENERAL MANAGER Plan of Treatment Not on file Medical Devices Implanted Type Area Cylinder Block Hole Reliner Device Identifier Shelf Expiration Date Model / Serial / Lot [employer] [id number] Synergy 3mm 24mm 144cm Radiopaque 1 Access Port Inflation Lumen - [id number] Implanted:Qty : 1 on 06/12/2018 by Alejandro Wagner MD at [facility] Stent N/A: Coronary [employer] 03/19/2020 [id number] / / [id number] Description:To OM [employer] [id number] Synergy 3mm 16mm 144cm Radiopaque 1 Access Port Inflation Lumen - [id number] Implanted:Qty : 1 on 09/10/2018 by Alfredito Porter MD at [facility] Stent N/A: Coronary [employer] 04/30/2020 [id number] / / [id number] Description:LAD [employer] Synergy Xd Monorail 3mm 20mm 144cm Delivery System 1 Access Port [id number] - S0 - [id number] Implanted:Qty : 1 on 10/16/2022 by Rishabh Bishop MD at [facility] Stent N/A: Coronary Artery [employer] 05/15/2024 [id number] / 0 / [id number] [employer] Angio-Seal Vip 6fr Closere Device [id number] - S0 - [id number] Implanted:Qty : 1 on 10/16/2022 by Rishabh Bishop MD at [facility] Vascular Closure Device Right: Coronary Artery [employer] 04/26/2023 [id number] / 0 / [id number] Procedures Procedure Name Priority Date/Time Associated Diagnosis Comments POCT GLUCOSE Routine 02/15/2024 9:24 AM EDUCATION GENERAL MANAGER Type 2 diabetes mellitus with hyperglycemia, with long-term current use of insulin (HCC) POCT HEMOGLOBIN A1C Routine 02/15/2024 9 :24 AM EDUCATION GENERAL MANAGER Type 2 diabetes mellitus with hyperglycemia, with long-term current use of insulin (HCC) ALBUMIN CREATININE RATIO, URINE Routine 02/15/2024 8:00 AM EDUCATION GENERAL MANAGER Type 2 diabetes mellitus with hyperglycemia, with long-term current use of insulin (HCC) POCT LIPID PANEL Routine 02/08/2024 11:3 5 AM EDUCATION GENERAL MANAGER 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 HM DIABETES EYE EXAM Routine 04/30/2023 10:30 AM EDUCATION GENERAL MANAGER EGFR Routine 10/17/2022 3:30 AM CDT COLONOSCOPY 02/03/2022 8:41 AM EDUCATION GENERAL MANAGER from Last 3 Months or Most Recently Relevant to Health Maintenance Results * (ABNORMAL) POCT hemoglobin A1c (02/15/2024 9:24 AM EDUCATION GENERAL MANAGER) Hemoglobin A1C, POC 8.1 4.0 - 5.6 % Comment:None Capillary blood 02/15/2024 9 :24 AM EDUCATION GENERAL MANAGER us Delmer Goss MD POINT OF CARE TEST ORDERABLES Fi nal Result * (ABNORMAL) POCT glucose (02/15/2024 9:24 AM EDUCATION GENERAL MANAGER) Glucose Blood, POC 140 mg/dL Comment:None Blood 02/15/2024 9:24 AM EDUCATION GENERAL MANAGER us Delmer Goss MD POINT OF CARE TEST ORDERABLES Fi nal Result * Albumin Creatinine Ratio, Urine (02/15/2024 8:00 AM EDUCATION GENERAL MANAGER) Albumin Ur <12.0 mg/L Comment: Interpretive Data No reference range established. Current interpretive data was last revised 2018. Creatinine Ur 37.2 mg/dL [facility] Comment: Interpretive Data No reference range established. Current interpretive data was last revised 2018. Albumin Creatinine Ratio, Ur See Comment 1 - 29 [facility] Comment:Unable to calculate Urine 02/15/2024 8:00 AM EDUCATION GENERAL MANAGER 02/15/2024 2:53 PM EDUCATION GENERAL MANAGER Delmer Goss MD LAB URINE ORDERABLES Final Resul t [facility] [id number] [address] Department [place] [address] * POCT lipid panel (02/08/2024 11:35 AM EDUCATION GENERAL MANAGER) Cholesterol, POC 147 mg/dL HDL, POC 49 mg/dL Triglycerides, POC 650 mg/dL LDL Cholesterol POC 32 mg/dL Chol/HDL Ratio, POC 0.65 Non-HDL Cholesterol, POC 98 mg/dL Cholesterol Total, POC 147 mg/dL Capillary blood 02/08/2024 1 1:35 AM EDUCATION GENERAL MANAGER Dylan Mosley MD POINT OF CARE TEST CHARISSA ROWLEY Final Result * HM DIABETES EYE EXAM (04/30/2023 10:30 AM EDUCATION GENERAL MANAGER) Ibrahima Zamora MD HEALTH MAINTENANCE Final Result * eGFR (10/17/2022 3:30 AM CDT) eGFR 98 mL/min/1. 73 m2 [facility] Comment: Interpretive Data Reference Interval Normal [...] LAB BLOOD ORDERABLES Fin al Result [facility] [address] Department [place] [address] * COLONOSCOPY (02/03/2022 8:41 AM EDUCATION GENERAL MANAGER) Anatomical Region Laterality Modality Other Narrative Procedure Note Kendall Lisa MD - 02/03/2022 8:41 AM CST [facility] Endoscopy Lab Patient Name: Myra Romero Procedure Date: 02/03/2022 8:41 AM Date of : 1955 Admit Type: Outpatient Age: 67 Gender: Female Note Status: Finalized Attending MD: Kendall Lisa M.D. Procedure Date: 02/03/2022 Procedure: Colonoscopy Indications: High risk colon cancer surveillance: Personalhistory of colonic polyps, Last colonoscopy: December2016 Providers: Kendall Lisa M.D., CASANDRA Nunez (Anesthesia Staff), Shari Jose RN, Maxx Thacker,Sprayer Automatic Spray Machine Referring MD: Trisha Kay NP Medicines: Monitored [...] bowel preparation was evaluated using the BBPS ([place] Bowel Preparation Scale) with scores of: Right [...] for surveillance. Procedure Code(s): --- Professional --- 31601, Colonoscopy, flexible; with biopsy, singleor multiple Diagnosis Code(s): --- Professional --- Z86.010, Personal history of colonic polyps D12.2, Benign neoplasm of ascending colon K62.89, Other specified diseases of anus andrectum K57.30, Diverticulosis of large intestine without perforation or abscess without bleeding CPT copyright 2020 [employer]. All rights reserved. The codes documented in this report are preliminary and upon party plan salesperson reviewmay be revised to meet current compliance requirements. Electronically signed by Kendall Lisa MD Kendall Lisa M.D. 02/03/2022 9:08:11 AM Number of Addenda: 0 Note Initiated On: 02/03/2022 8:41 AM Kendall Lisa MD ENDOSCOPY PROCEDURES Final Resul t from Last 3 Months or Most Recently Relevant to Health Maintenance Insurance [facility] [place]IC[place] AETNA SENIOR SUPPLEMENT MEDICARE AETNA SENIOR SUPPLEMENT Advance Directives For more information, please contact: [phone] * Full Code (Latest Code Status on [...] 3:15 PM 06/12/2018 3:16 PM Care Teams Boxing Promoter Relationship Specialty Start Date End Date French Browning DO [address] [place] [address] PCP - General Family Medicine 01/08/23 [place] [id number] [place] [address] Consulting Physician Endocrinology Diabetes & Metabolism 04/24/18 Alejandro Wagner MD [address] [place] [address] Consulting Physician Cardiology 06/13/18
--- OUTSIDE RECORDS SUMMARY | 2024-04-15 16:14 | XMS_ITS | Clinical Summary ---
Author Organization [facility] Address [facility] [place] [address] Care Team Providers Care Hydrogen Operator Name Role Phone Bertin Langford MD Primary Care Provider [phone] Social History Tobacco Use Types Packs/Day Years [...] patient's age to complete this topic Insurance [facility] Care Teams Hydrogen Operator Relationship Specialty Start Date End Date Bertin Langford MD [address] [place] [address] PCP - General FAMILY PRACTICE 10/02/18
[2024-04-15 16:37] LABS: Basophils Percent Auto 0.1 % (0.2-1.2); Eosinophils Absolute Auto 0.1 K/mm3 (0-0.3); Hematocrit 39.6 % (37.0-47.0); Immature Granulocyte Absolute 0.03 K/mm3 (0.00-0.031); Immature Granulocyte Percent A 0.4 % (0-0.5); Lymphocytes Absolute Auto 1.84 K/mm3 (0.9-3.2); Lymphocytes Percent Auto 25.2 % (18.3-44.2); Mean Corpuscular HGB Conc 32.8 g/dl (32-36); Mean Corpuscular Hemoglobin 27.8 pg (26-34); Mean Corpuscular Volume 84.6 fl (80-100); Mean Platelet Volume 9.4 fl (7.4-10.4); Monocytes Absolute Auto 0.5 K/mm3 (0.1-0.6); Neutrophils Absolute Auto 4.9 K/mm3 (1.3-6.7); Neutrophils Percent Auto 66.3 % (45.5-73.1); Platelet Count Result 330 k/mm3 (150-375); Red Blood Count 4.68 M/mm3 (4.2-5.4); Red Cell Distribution Width 14.7 % (11.5-14.5); White Blood Count 7.3 K/mm3 (4.5-10.0)
[2024-04-15 16:47] LABS: Alanine Aminotransferase 23 U/L (6-35); Albumin Level 4.1 g/dL (3.5-5.1); Alkaline Phosphatase 51 U/L (38-126); Anion Gap 12 mmol/L (4-12); Aspartate Amino Transferase 25 U/L (14-36); Bilirubin,Total 0.5 mg/dL (0.2-1.3); Blood Urea Nitrogen 25 mg/dL (7-17); Calcium 9.2 mg/dL (8.4-10.2); Carbon Dioxide 21 mmol/L (22-30); Chloride 104 mmol/L (98-107); Estimated CRCL calculation 53 ml/min; Estimated Glomerular Filt Rate > 60; Glucose 133 mg/dL (65-110); Lipase 222 U/L (23-300); Potassium 4.5 mmol/L (3.4-5.0); Sodium 137 mmol/L (137-145)
[2024-04-15 16:58] LABS: INR 0.9; Prothrombin Time 12.5 Seconds (11.1-14.7); Troponin I < 0.012 ng/mL (0.000-0.034)
[2024-04-15 16:59] LABS: Partial Thromboplastin Time 24.6 Seconds (22.3-36.8)
[2024-04-15] MEDS: ASPIRIN 81 MG CHEWABLE TABLET 324 MG PO (17:25)
--- NOTE | 2024-04-15 17:38 | ED_ITS ---
HPI - Chest Pain General Chief Complaint: Chest Pain <Remigio Arevalo MD - Last Filed: 04/15/24 21:36> Stated Complaint: CP <Remigio Arevalo MD - Last Filed: 04/15/24 21:36> Time Seen by Provider: 04/15/24 17:15 <Remigio Arevalo MD - Last Filed: 04/15/24 21:36> History of Present Illness HPI narrative: 69-year-old female with history of coronary artery disease, hypertension, high cholesterol, diabetes presented emergency department for evaluation for chest pain that radiated to right arm. Patient states the pain and subsequent pressure were reminiscent of her prior NM. Patient reports her most recent NM was in 2022. 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 <Remigio Arevalo MD - Last Filed: 04/15/24 21:36> Related Data Home Medications: Home Medications ?Medication ?Instructions ?Recorded ?Confirmed ?Last Taken ?Type aspirin 81 mg tablet,delayed 81 mg PO DAILY 01/31/19 04/15/24 04/15/24 History release (Adult Low Dose Aspirin) clopidogrel 75 mg tablet (Plavix) 75 mg PO DAILY 01/31/19 04/15/24 04/15/24 History dapagliflozin propanediol 10 mg 10 mg PO DAILY 01/31/19 04/15/24 04/15/24 History tablet (Farxiga) metformin 1,000 mg tablet 1,000 mg PO BID 01/31/19 04/15/24 04/15/24 History insulin degludec 100 unit/mL (3 20 unit subcut QPM 07/30/20 04/15/24 04/14/24 History mL) subcutaneous pen semaglutide 0.25 mg or 0.5 mg (2 0.5 mg subcut WEEKLY 04/19/23 04/15/24 Unknown History mg/1.5 mL) subcutaneous pen injector metoprolol tartrate 50 mg tablet 50 mg PO QPM 12/28/23 04/15/24 04/14/24 History <Remigio Arevalo MD - Last Filed: 04/15/24 21:36> Allergies/Adverse Reactions: Allergies Allergy/AdvReac Type Severity Reaction Status Date / Time adhesive Allergy Intermediate unknown Verified 04/15/24 18:20 Iodinated Contrast Media Allergy Intermediate Hives Verified 04/15/24 18:20 Penicillins Allergy Unknown Hives Verified 04/15/24 18:20 IVP dye Allergy Intermediate Hives Uncoded 04/15/24 18:20 <Remigio Arevalo MD - Last Filed: 04/15/24 21:36> Review of Systems 2 Review of Systems: All systems reviewed & are unremarkable except as noted in HPI and below <Remigio Arevalo MD - Last Filed: 04/15/24 21:36> [facility] Past Medical History Medical History: Medical History (Updated 04/15/24 @ 19:45 by Carmina Stahl PA-C) Hyperlipidemia Hypertension Gastroesophageal reflux disease Insulin dependent type 2 diabetes mellitus Coronary artery disease Generalized anxiety disorder Retrolisthesis 2 mm retrolisthesis at C4-5 Diverticulitis Mixed stress and urge urinary incontinence History of anesthesia reaction Food allergy Seasonal allergies Arthritis Depression Diverticulosis Myocardial infarction (05/2018) <Remigio Arevalo MD - Last Filed: 04/15/24 21:36> Surgical History Surgical History: Surgical History (Updated 04/15/24 @ 19:20 by Carmina Stahl PA-C) Status post excision of Leonard neuroma left foot History of cardiac catheterization History of lateral meniscus repair of right knee History of lateral meniscus repair of left knee History of section History of oophorectomy History of hand surgery trigger finger release right ring finger History of coronary artery stent placement History of hysterectomy <Remigio Arevalo MD - Last Filed: 04/15/24 21:36> Family History Family History: Family History Father Diabetes mellitus Heart disease Sibling Pancreatic cancer Type 1 diabetes Brother Family history of pancreatic cancer Father Family history of type 2 diabetes mellitus Mother Heart disease Hypertension Polycystic disease of gallbladder Grandparent Hardening of the arteries of the brain Other Arthritis Nerve disorder <Remigio Arevalo MD - Last Filed: 04/15/24 21:36> Social History Social History: Social History (Updated 04/15/24 @ 19:21 by Carmina Stahl PA-C) Social History: Surrogate medical decision maker: Itzel Romero, daughter ([phone]). Code status: Full code. Smoking packs per day: 1 Smoking cigarettes per day: 20.0 Years smoked: 5 Smoking pack-years: 5.00 Smoking status: Former smoker Tobacco type: cigarettes Smoking end date: 02/26/79 Alcohol intake: current Drinks per week: 0 Alcohol use details: Rare alcohol use in moderation Substance use: never Substance use type: does not use Do You Feel Safe in your Home?: Yes Lack of Transportation: No Lack of Food: Never True Current Housing: I Have Housing Concerned About Future Housing: No Difficulty Paying Gas/Electric Bills: No Difficulty Paying for Meds: No Currently Unemployed: No Education: Associate Degree Difficulty w/ Childcare or Family Care: No Living arrangements: with family Additional living arrangements comments: . 2 Children. Lives with daughter. 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 HEAD: normocephalic, atraumatic. EYES: PERRLA/EOMI, conjunctivae clear. NOSE: Normal no drainage EARS:TMS clear with good light reflex. THROAT: Pharynx clear, no exudate. NECK: Supple. No adenopathy, no masses. RESPIRATORY: Airway patent, respirations nonlabored. Clear to auscultation bilaterally, no rales, rhonchi, wheezing. CARDIOVASCULAR: Regular rate and rhythm without murmurs rubs or gallops. ABDOMINAL: Soft, nontender, nondistended, normal bowel sounds MUSCULOSKELETAL: Moves all extremities. Strength/ROM intact, No edema, No calf tenderness. NEURO: Alert. Cranial nerves II through XII intact. Good gait. Good coordination SKIN: Warm, dry. Normal Color <Remigio Arevalo MD - Last Filed: 04/15/24 21:36> Course Vital Signs Vital signs: Vital Signs Temperature 98.0 F 04/15/24 16:30 Pulse Rate 73 04/15/24 16:30 Respiratory Rate 20 04/15/24 16:30 Blood Pressure 136/65 04/15/24 16:30 Pulse Oximetry 97 04/15/24 16:30 Oxygen Delivery Room Air 04/15/24 16:30 Temperature 98.0 F 04/15/24 16:30 Pulse Rate 79 04/15/24 19:29 Respiratory Rate 17 04/15/24 19:29 Blood Pressure 129/93 H 04/15/24 19:29 Pulse Oximetry 95 04/15/24 19:29 Oxygen Delivery Room Air 04/15/24 16:30 <Remigio Arevalo MD - Last Filed: 04/15/24 21:36> Vital Signs Temperature 98.0 F 04/15/24 16:30 Pulse Rate 73 04/15/24 16:30 Respiratory Rate 20 04/15/24 16:30 Blood Pressure 136/65 04/15/24 16:30 Pulse Oximetry 97 04/15/24 16:30 Oxygen Delivery Room Air 04/15/24 16:30 Temperature 98.0 F 04/15/24 16:30 Pulse Rate 79 04/15/24 19:29 Respiratory Rate 17 04/15/24 19:29 Blood Pressure 129/93 H 04/15/24 19:29 Pulse Oximetry 95 04/15/24 19:29 Oxygen Delivery Room Air 04/15/24 16:30 <Carmina Stahl PA-C - Last Filed: 04/15/24 19:13> MDM - Chest Pain MDM Narrative Medical decision making narrative: 69-year-old female with history of coronary disease, hypercholesterol hypertension and diabetes presents emergency department for evaluation for chest pain. Patient is currently afebrile with no leukocytosis hemoglobin of 13. Patient has no significant abnormalities on her CMP, patient's initial troponin was negative. Chest x-ray showed no acute cardiopulmonary abnormality. EKG did show nonspecific ST depressions with no evidence of acute STEMI. Due to the patient's heart score case was discussed with hospitalist patient was accepted to the IMU for further cardiac evaluation. Patient was treated with IV morphine for what the patient described as a chest pressure, patient denies any chest pain. <Remigio Arevalo MD - Last Filed: 04/15/24 21:36> Differential Diagnosis Differential diagnosis: Likely pneumothorax, unstable angina pectoris, atypical chest pain, costochondritis, chest pain and biliary colic <Remigio Arevalo MD - Last Filed: 04/15/24 21:36> Lab Data Attestation: I reviewed the patient's lab results. <Remigio Arevalo MD - Last Filed: 04/15/24 21:36> Result diagrams: 04/15/24 16:30 04/15/24 16:30 <Remigio Arevalo MD - Last Filed: 04/15/24 21:36> Labs: Lab Results 04/15/24 Range/Units 16:30 WBC 7.3 (4.5-10.0) K/mm3 RBC 4.68 (4.2-5.4) M/mm3 Hgb 13.0 (12.0-15.0) g/dL Hct 39.6 (37.0-47.0) % MCV 84.6 (80-100) fl MCH 27.8 (26-34) pg MCHC 32.8 (32-36) g/dl RDW 14.7 H (11.5-14.5) % Plt Count 330 (150-375) k/mm3 MPV 9.4 (7.4-10.4) fl Immature Gran % (Auto) 0.4 (0-0.5) % Neut % (Auto) 66.3 (45.5-73.1) % Lymph % (Auto) 25.2 (18.3-44.2) % Sutton % (Auto) 7.0 (2.6-8.5) % Eos % (Auto) 1.0 (0-4.4) % Baso % (Auto) 0.1 L (0.2-1.2) % Lymph # (Auto) 1.84 (0.9-3.2) K/mm3 Sutton # (Auto) 0.5 (0.1-0.6) K/mm3 Eos # (Auto) 0.1 (0-0.3) K/mm3 Baso # (Auto) 0.0 (0.0-0.1) K/mm3 Abs Immat Gran (auto) 0.03 (0.00-0.031) K/mm3 Absolute Neuts (auto) 4.9 (1.3-6.7) K/mm3 Absolute Nucleated RBC 0.000 (0.0-0.012) K/mm3 Nucleated RBC % 0.0 (0.0-0.2) % PT 12.5 (11.1-14.7) Seconds INR 0.9 APTT 24.6 (22.3-36.8) Seconds Sodium 137 (137-145) mmol/L Potassium 4.5 (3.4-5.0) mmol/L Chloride 104 (98-107) mmol/L Carbon Dioxide 21 L (22-30) mmol/L Anion Gap 12 (4-12) mmol/L BUN 25 H D (7-17) mg/dL Creatinine 0.81 (0.7-1.0) mg/dL Estim Creat Clear Calc 53 ml/min Estimated GFR > 60 (59 - ) Glucose 133 H (65-110) mg/dL Calcium 9.2 (8.4-10.2) mg/dL Total Bilirubin 0.5 (0.2-1.3) mg/dL AST 25 (14-36) U/L ALT 23 (6-35) U/L Alkaline Phosphatase 51 (38-126) U/L Troponin I < 0.012 (0.000-0.034) ng/mL Total Protein 7.0 (6.3-8.2) g/dL Albumin 4.1 (3.5-5.1) g/dL Lipase 222 (23-300) U/L <Remigio Arevalo MD - Last Filed: 04/15/24 21:36> Lab Results 04/15/24 Range/Units 16:30 WBC 7.3 (4.5-10.0) K/mm3 RBC 4.68 (4.2-5.4) M/mm3 Hgb 13.0 (12.0-15.0) g/dL Hct 39.6 (37.0-47.0) % MCV 84.6 (80-100) fl MCH 27.8 (26-34) pg MCHC 32.8 (32-36) g/dl RDW 14.7 H (11.5-14.5) % Plt Count 330 (150-375) k/mm3 MPV 9.4 (7.4-10.4) fl Immature Gran % (Auto) 0.4 (0-0.5) % Neut % (Auto) 66.3 (45.5-73.1) % Lymph % (Auto) 25.2 (18.3-44.2) % Sutton % (Auto) 7.0 (2.6-8.5) % Eos % (Auto) 1.0 (0-4.4) % Baso % (Auto) 0.1 L (0.2-1.2) % Lymph # (Auto) 1.84 (0.9-3.2) K/mm3 Sutton # (Auto) 0.5 (0.1-0.6) K/mm3 Eos # (Auto) 0.1 (0-0.3) K/mm3 Baso # (Auto) 0.0 (0.0-0.1) K/mm3 Abs Immat Gran (auto) 0.03 (0.00-0.031) K/mm3 Absolute Neuts (auto) 4.9 (1.3-6.7) K/mm3 Absolute Nucleated RBC 0.000 (0.0-0.012) K/mm3 Nucleated RBC % 0.0 (0.0-0.2) % PT 12.5 (11.1-14.7) Seconds INR 0.9 APTT 24.6 (22.3-36.8) Seconds Sodium 137 (137-145) mmol/L Potassium 4.5 (3.4-5.0) mmol/L Chloride 104 (98-107) mmol/L Carbon Dioxide 21 L (22-30) mmol/L Anion Gap 12 (4-12) mmol/L BUN 25 H D (7-17) mg/dL Creatinine 0.81 (0.7-1.0) mg/dL Estim Creat Clear Calc 53 ml/min Estimated GFR > 60 (59 - ) Glucose 133 H (65-110) mg/dL Calcium 9.2 (8.4-10.2) mg/dL Total Bilirubin 0.5 (0.2-1.3) mg/dL AST 25 (14-36) U/L ALT 23 (6-35) U/L Alkaline Phosphatase 51 (38-126) U/L Troponin I < 0.012 (0.000-0.034) ng/mL Total Protein 7.0 (6.3-8.2) g/dL Albumin 4.1 (3.5-5.1) g/dL Lipase 222 (23-300) U/L <Carmina Stahl PA-C - Last Filed: 04/15/24 19:13> Imaging Data Radiologist's impression: Impressions Chest X-Ray 04/15/24 16:55 IMPRESSION: No acute cardiopulmonary process. <Remigio Arevalo MD - Last Filed: 04/15/24 21:36> Discharge Plan Discharge Clinical Impression: Chest pain <Remigio Arevalo MD - Last Filed: 04/15/24 21:36> Patient Disposition: Still a Patient <Remigio Arevalo MD - Last Filed: 04/15/24 21:36> Condition: Serious <Remigio Arevalo MD - Last Filed: 04/15/24 21:36> Quality HEART score for chest pain patients History: slightly suspicious <Remigio Arevalo MD - Last Filed: 04/15/24 21:36> ECG: non specific repolarization disturbance/LBTB/PM <Remigio Arevalo MD - Last Filed: 04/15/24 21:36> Age: > or = to 65 years <Remigio Arevalo MD - Last Filed: 04/15/24 21:36> Risk factors: > or = to 3 risk factors of atherosclerotic disease <Remigio Arevalo MD - Last Filed: 04/15/24 21:36> Troponin: < or = to 1x normal limit <Remigio Arevalo MD - Last Filed: 04/15/24 21:36> Heart score: 5 <Remigio Arevalo MD - Last Filed: 04/15/24 21:36> 5 <Carmina Stahl PA-C - Last Filed: 04/15/24 19:13>
--- OUTSIDE RECORDS SUMMARY | 2024-04-15 17:47 | XMS_ITS | Referral Summary ---
Author Organization [facility] Address [address] [place] [address] Care Team Providers Care Services Delivery Driver Name Role Phone Delmer Goss MD Unavailable Alejandro Wagner MD Unavailable French Browning DO Primary Care Provider Encounters Date Type Department Care Team Description 03/17/2024 Telephone [facility] [address] [address] Delmer Goss MD PA in [facility] 02/15/2024 10:51 AM AIR CONTROL ELECTRONICS OPERATOR - 02/15/2024 11:59 PM AIR CONTROL ELECTRONICS OPERATOR Hospital Encounter [address] [address] Type 2 diabetes mellitus with hyperglycemia, with long-term current use of insulin (HCC) Discharge Disposition: Discharge to home or self care 02/15/2024 9:00 AM AIR CONTROL ELECTRONICS OPERATOR Office Visit [facility] [address] [address] Delmer Goss MD Type 2 diabetes mellitus with hyperglycemia, with long-term current use of insulin (HCC) (Primary Dx); Hypertension associated with diabetes (HCC) 02/08/2024 11:15 AM AIR CONTROL ELECTRONICS OPERATOR Office Visit [facility] [address] [address] Dylan Mosley MD Coronary artery disease involving [place] coronary artery of [place] heart without angina pectoris (Primary Dx); S/P [...] doses total 30 tablet 2 9 Active qaodh-[id number]-xwa-epa -fish oil 300-1,000 mg capsule,delayed release(DR/EC) Take [...] daily Active pen needle, diabetic (Sure-Fine Pen [place]) 31 gauge x 5/16 needle Use to [...] long-term current use of insulin ([facility]) USE TO TEST BLOOD SUGARS 3 TIMES DAILY DX:E11.65 insulin dependent 300 strip 3 4 Active metFORMIN (GLUCOPHAGE) 1,000 mg tablet TAKE 1 TABLET BY MOUTH TWICE A DAY WITH FOOD 180 tablet 3 4 Active insulin degludec (TRESIBA) 100 unit/mL (3 mL) pen for injectionIndica tions:Type 2 diabetes mellitus with hyperglycemia, with long-term current use of insulin ([facility]) INJECT 20 UNITS TOTAL UNDER THE SKIN NIGHTLY 15 mL 3 4 Active Farxiga 10 mg tabletIndicatio ns:Type 2 diabetes mellitus with hyperglycemia, with long-term current use of insulin ([facility]) TAKE 1 TABLET BY MOUTH [...] High-fiber diet. Coronary artery disease invo lving [place] coronary artery of [place] heart without angina pectoris 07/17/2018 Assessment & Plan (01/08/2023 2:33 PM AIR CONTROL ELECTRONICS OPERATOR): Stable status post recent repeat stenting [...] regularly. Assessment & Plan (04/26/2020 3:45 PM AIR CONTROL ELECTRONICS OPERATOR): Stable, without angina. I made no change in her excellent medical regimen today. I asked her to follow up with me annually, sooner if needed. I again advised her to diet and exercise regularly. Assessment & Plan (04/28/2019 3:47 PM AIR CONTROL ELECTRONICS OPERATOR): Stable, without angina. I made no [...] and diligent control of DM which her taffy puller manages. Assessment & Plan (07/18/2018 2:37 PM [...] 07/17/2018 Assessment & Plan (01/08/2023 2:33 PM AIR CONTROL ELECTRONICS OPERATOR): Well controlled. Continue same therapy. Continue diet and exercise. Assessment & Plan (06/16/2022 10:40 AM CDT): Blood pressure is well controlled. Continue same therapy. Continue diet and exercise. Assessment & Plan (06/13/2021 11:15 AM CDT): Blood pressure is well controlled. Continue same therapy. Continue diet and exercise. Assessment & Plan (04/26/2020 3:45 PM AIR CONTROL ELECTRONICS OPERATOR): Blood pressure is well controlled. Continue [...] daily Assessment & Plan (01/08/2023 2:34 PM AIR CONTROL ELECTRONICS OPERATOR): Well controlled. Continue high-intensity statin therapy. Assessment & Plan (11/10/2022 10:42 AM CDT): Chronic problem. Controlled on current Atorvastatin 40mg. Last lipid panel: 12/29/21 LDL=60, MU=349. Assessment & Plan (12/29/2021 3:37 PM CDT): [...] therapy Assessment & Plan (05/01/2019 4:15 PM AIR CONTROL ELECTRONICS OPERATOR): Goal of treatment , LDL cholesterol [...] Lipitor Assessment & Plan (04/28/2019 3:47 PM AIR CONTROL ELECTRONICS OPERATOR): Lipids are very well controlled. Continue [...] therapy Assessment & Plan (04/24/2018 4:31 PM AIR CONTROL ELECTRONICS OPERATOR): Goal of treatment , LDL cholesterol [...] therapy Assessment & Plan (01/27/2018 11:11 AM AIR CONTROL ELECTRONICS OPERATOR): Check lipid panel and adjust statin accordingly Type 2 diabetes mellitus wit h hyperglycemia, with long-term current use of insulin 07/02/2013 Overview (06/02/2016): DMII WO CMP UNCNTRLD Assessment & Plan (02/15/2024 11:04 AM AIR CONTROL ELECTRONICS OPERATOR): Chronic, not at goal with higher [...] current Assessment & Plan (05/01/2019 4:14 PM AIR CONTROL ELECTRONICS OPERATOR): Hba1c was Lab Results Component Value [...] untis Assessment & Plan (04/24/2018 4:31 PM AIR CONTROL ELECTRONICS OPERATOR): Hba1c was Lab Results Component Value Date HGBA1C 6.9 04/24/2018 today, indicating DM control 1800 calorie, consistent carb diet recommended 25-45 min daily aerobic and resistance exercise recommended Prevention and treatment of hyypoglcyemia discussed. Blood glucose monitoring with fingers sticks 1-2 x day . Continue Basaglar, Victoza , Farxiga and Metformin . Assessment & Plan (01/27/2018 10:59 AM AIR CONTROL ELECTRONICS OPERATOR): A1c 6.7. Trending upward. No change to medication. Advised to continue to focus on diet and exercise. Assessment & Plan (10/17/2017 10:52 AM CDT): Your Hba1c today was: Lab Results Component Value Date HGBA1C 6.2 10/17/2017 meaning a 3 month average sugar of : 121 Your goal hba1c is under 7.0 to prevent truck terminal manager diabetes complications ( eye , kidney and [...] units. Assessment & Plan (04/17/2017 3:27 PM AIR CONTROL ELECTRONICS OPERATOR): Hba1c was 5.8 today, indicating proper DM control 1800 calorie, consistent carb diet recommended 30 min daily aerobic and resistance exercise recommended Prevention and treatment of hyypoglcyemia discussed. Blood glucose monitoring with fingers sticks 1-2 x day . Lower Basaglar to 14 units Assessment & Plan (01/12/2017 10:14 AM AIR CONTROL ELECTRONICS OPERATOR): Hba1c was 5.8 today, indicating adequate [...] therapy. Assessment & Plan (04/26/2020 3:46 PM AIR CONTROL ELECTRONICS OPERATOR): Lipids are very well controlled. Continue [...] therapy. Assessment & Plan (04/17/2017 3:20 PM AIR CONTROL ELECTRONICS OPERATOR): Goal of treatment , LDL cholesterol [...] therapy Assessment & Plan (01/12/2017 10:08 AM AIR CONTROL ELECTRONICS OPERATOR): Goal of treatment , LDL cholesterol [...] Unspecified Assessment & Plan (02/15/2024 11:05 AM AIR CONTROL ELECTRONICS OPERATOR): Chronic, stable. Continue current regimen including [...] microalbumin Assessment & Plan (05/01/2019 4:14 PM AIR CONTROL ELECTRONICS OPERATOR): Goal blood pressure is less than 140/85 Low salt diet recommended Daily aerobic exercise Continue current meds, including MOIRA-I or ARB Assessment & Plan (04/28/2019 3:47 PM AIR CONTROL ELECTRONICS OPERATOR): Blood pressure is excellent. Continue same therapy. Continue diet and exercise. Assessment & Plan (10/23/2018 4:10 PM CDT): Goal blood pressure is less than 140/85 Low salt diet recommended Daily aerobic exercise Continue current meds, including MOIRA-I or ARB Assessment & Plan (04/24/2018 4:31 PM AIR CONTROL ELECTRONICS OPERATOR): Goal blood pressure is less than 140/85 Low salt diet recommended Daily aerobic exercise Continue current meds, including MOIRA-I or ARB Check microalbumin Assessment & Plan (01/27/2018 11:11 AM AIR CONTROL ELECTRONICS OPERATOR): Controlled on current medications. Assessment & Plan (10/17/2017 12:49 PM CDT): Goal blood pressure is less than 140/85 Low salt diet recommended Daily aerobic exercise Continue current meds. Assessment & Plan (04/17/2017 3:20 PM AIR CONTROL ELECTRONICS OPERATOR): Goal blood pressure is less than 140/85 Low salt diet recommended Daily aerobic exercise Continue current meds, including MOIRA-I or ARB Assessment & Plan (01/12/2017 10:08 AM AIR CONTROL ELECTRONICS OPERATOR): Goal blood pressure is less than [...] (09/09/2018): Added automatically from request for surgery [id number] Acute chest pain 08/30/2018 11/25/2019 Assessment & Plan (08/30/2018 11:54 AM CDT): Similar to chest pain prior to CT, however atypical in that she is usually [...] absence. NSTEMI (non-ST elevated myoc ardial infarction) ([facility]) 06/12/2018 11/25/2019 Overview (06/12/2018): Added automatically from request for surgery [id number] Social History Tobacco Use Types Packs/Day Years [...] on file Legal Sex Female 2:00 AM AIR CONTROL ELECTRONICS OPERATOR Gender Identity Not on file Sexual Orientation Straight 02/15/2024 9: 20 AM AIR CONTROL ELECTRONICS OPERATOR Last Filed Vital Signs Vital Sign Reading Time Taken Comments Blood Pressure 122/80 02/15/2024 9:24 AM AIR CONTROL ELECTRONICS OPERATOR Pulse 68 02/15/2024 9:24 AM AIR CONTROL ELECTRONICS OPERATOR Temperature 36.6 C (97.9 F) 10/17/2022 1:42 PM CDT Respiratory Rate 18 02/15/2024 9:24 AM AIR CONTROL ELECTRONICS OPERATOR Oxygen Saturation 97% 02/08/2024 11: 24 AM AIR CONTROL ELECTRONICS OPERATOR Inhaled Oxygen Concentration - - Weight 69.8 kg (153 lb 12.8 oz) 02/15/2024 9:24 AM AIR CONTROL ELECTRONICS OPERATOR Height 167.6 cm (5' 6 ) 02/15/2024 9:24 AM AIR CONTROL ELECTRONICS OPERATOR Body Mass Index 24.82 02/15/2024 9:24 AM AIR CONTROL ELECTRONICS OPERATOR Plan of Treatment Not on file Medical Devices Implanted Type Area Platform Attendant Device Identifier Shelf Expiration Date Model / Serial / Lot [employer]eta [id number] Synergy 3mm 24mm 144cm Radiopaque 1 Access Port Inflation Lumen - [id number] Implanted:Qty : 1 on 06/12/2018 by Alejandro Wagner MD at [facility] Stent N/A: Coronary [employer] En[employer]eta 03/19/2020 [id number] / / [id number] Description:To OM [employer] [id number] Synergy 3mm 16mm 144cm Radiopaque 1 Access Port Inflation Lumen - [id number] Implanted:Qty : 1 on 09/10/2018 by Alfredito Porter MD at [facility] Stent N/A: Coronary [employer] 04/30/2020 [id number] / / [id number] Description:LAD [employer] Synergy Xd Monorail 3mm 20mm 144cm Delivery System 1 Access Port [id number] - S0 - [id number] Implanted:Qty : 1 on 10/16/2022 by Rishabh Bishop MD at [facility] Stent N/A: Coronary Artery [employer] En[employer] 05/15/2024 [id number] / 0 / [id number] [employer] En[employer] Angio-Seal Vip 6fr Closere Device [id number] - S0 - [id number] Implanted:Qty : 1 on 10/16/2022 by Rishabh Bishop MD at [facility] Vascular Closure Device Right: Coronary Artery [employer] En[employer] 04/26/2023 [id number] / 0 / [id number] Procedures Procedure Name Priority Date/Time Associated Diagnosis Comments POCT GLUCOSE Routine 02/15/2024 9:24 AM AIR CONTROL ELECTRONICS OPERATOR Type 2 diabetes mellitus with hyperglycemia, with long-term current use of insulin (HCC) POCT HEMOGLOBIN A1C Routine 02/15/2024 9 :24 AM AIR CONTROL ELECTRONICS OPERATOR Type 2 diabetes mellitus with hyperglycemia, with long-term current use of insulin (HCC) ALBUMIN CREATININE RATIO, URINE Routine 02/15/2024 8:00 AM AIR CONTROL ELECTRONICS OPERATOR Type 2 diabetes mellitus with hyperglycemia, with long-term current use of insulin (HCC) POCT LIPID PANEL Routine 02/08/2024 11:3 5 AM AIR CONTROL ELECTRONICS OPERATOR Coronary artery disease involving [place] coronary artery of [place] heart without angina pectoris HM DIABETES EYE EXAM Routine 04/30/2023 10:30 AM AIR CONTROL ELECTRONICS OPERATOR EGFR Routine 10/17/2022 3:30 AM CDT COLONOSCOPY 02/03/2022 8:41 AM AIR CONTROL ELECTRONICS OPERATOR from Last 3 Months or Most Recently Relevant to Health Maintenance Results * (ABNORMAL) POCT hemoglobin A1c (02/15/2024 9:24 AM AIR CONTROL ELECTRONICS OPERATOR) Hemoglobin A1C, POC 8.1 4.0 - 5.6 % Comment:None Capillary blood 02/15/2024 9 :24 AM AIR CONTROL ELECTRONICS OPERATOR us Delmer Goss MD POINT OF CARE TEST ORDERABLES Fi nal Result * (ABNORMAL) POCT glucose (02/15/2024 9:24 AM AIR CONTROL ELECTRONICS OPERATOR) Glucose Blood, POC 140 mg/dL Comment:None Blood 02/15/2024 9:24 AM AIR CONTROL ELECTRONICS OPERATOR us Delmer Goss MD POINT OF CARE TEST ORDERABLES Fi nal Result * Albumin Creatinine Ratio, Urine (02/15/2024 8:00 AM AIR CONTROL ELECTRONICS OPERATOR) Albumin Ur <12.0 mg/L Comment: Interpretive Data No reference range established. Current interpretive data was last revised 2018. Creatinine Ur 37.2 mg/dL [facility] Comment: Interpretive Data No reference range established. Current interpretive data was last revised 2018. Albumin Creatinine Ratio, Ur See Comment 1 - 29 [facility] Comment:Unable to calculate Urine 02/15/2024 8:00 AM AIR CONTROL ELECTRONICS OPERATOR 02/15/2024 2:53 PM AIR CONTROL ELECTRONICS OPERATOR Delmer Goss MD LAB URINE ORDERABLES Final Resul t [facility] [id number] Department [place] [address] * POCT lipid panel (02/08/2024 11:35 AM AIR CONTROL ELECTRONICS OPERATOR) Cholesterol, POC 147 mg/dL HDL, POC 49 mg/dL Triglycerides, POC 650 mg/dL LDL Cholesterol POC 32 mg/dL Chol/HDL Ratio, POC 0.65 Non-HDL Cholesterol, POC 98 mg/dL Cholesterol Total, POC 147 mg/dL Capillary blood 02/08/2024 1 1:35 AM AIR CONTROL ELECTRONICS OPERATOR Dylan Mosley MD POINT OF CARE TEST CHARISSA ROWLEY Final Result * HM DIABETES EYE EXAM (04/30/2023 10:30 AM AIR CONTROL ELECTRONICS OPERATOR) Ibrahima Zamora MD HEALTH MAINTENANCE Final Result * eGFR (10/17/2022 3:30 AM CDT) eGFR 98 mL/min/1. 73 m2 [facility] Comment: Interpretive Data Reference Interval Normal [...] LAB BLOOD ORDERABLES Fin al Result [facility] [address] [place] [address] * COLONOSCOPY (02/03/2022 8:41 AM AIR CONTROL ELECTRONICS OPERATOR) Anatomical Region Laterality Modality Other Narrative Procedure Note Kendall Lisa MD - 02/03/2022 8:41 AM CST [facility] Endoscopy Lab Patient Name: Myra Romero Procedure Date: 02/03/2022 8:41 AM Date of : 1955 Admit Type: Outpatient Age: 67 Gender: Female Note Status: Finalized Attending MD: Kendall Lisa M.D. Procedure Date: 02/03/2022 Procedure: Colonoscopy Indications: High risk colon cancer surveillance: Personalhistory of colonic polyps, Last colonoscopy: December2016 Providers: Kendall Lisa M.D., CASANDRA Nunez (Anesthesia Staff), Shari Jose RN, Maxx Thacker,Building Mover Referring MD: Trisha Kay NP Medicines: Monitored [...] bowel preparation was evaluated using the BBPS ([place] Bowel Preparation Scale) with scores of: Right [...] for surveillance. Procedure Code(s): --- Professional --- 92570, Colonoscopy, flexible; with biopsy, singleor multiple Diagnosis Code(s): --- Professional --- Z86.010, Personal history of colonic polyps D12.2, Benign neoplasm of ascending colon K62.89, Other specified diseases of anus andrectum K57.30, Diverticulosis of large intestine without perforation or abscess without bleeding CPT copyright 2020 [employer]. All rights reserved. The codes documented in this report are preliminary and upon director of annual giving reviewmay be revised to meet current compliance requirements. Electronically signed by Kendall Lisa MD Kendall Lisa M.D. 02/03/2022 9:08:11 AM Number of Addenda: 0 Note Initiated On: 02/03/2022 8:41 AM Kendall Lisa MD ENDOSCOPY PROCEDURES Final Resul t from Last 3 Months or Most Recently Relevant to Health Maintenance Insurance CHOICE [facility] [place]PO [place] MEDICARE A[employer] SENIOR SUPPLEMENT MEDICARE AET[employer] SENIOR SUPPLEMENT Advance Directives For more information, please contact: [phone] * Full Code (Latest Code Status on [...] 3:15 PM 06/12/2018 3:16 PM Care Teams Services Delivery Driver Relationship Specialty Start Date End Date French Browning DO [address] [place] [address] PCP - General Family Medicine 01/08/23 [place] [id number] [place] [address] Consulting Physician Endocrinology Diabetes & Metabolism 04/24/18 Alejandro Wagner MD [address] [place] [address] Consulting Physician Cardiology 06/13/18
--- OUTSIDE RECORDS SUMMARY | 2024-04-15 17:47 | XMS_ITS | Clinical Summary ---
Author Organization [facility] Address [facility] [place] [address] Care Team Providers Care Manager Of Construction Name Role Phone Bertin Langford MD Primary Care Provider [phone] Social History Tobacco Use Types Packs/Day Years [...] patient's age to complete this topic Insurance [facility] Care Teams Manager Of Construction Relationship Specialty Start Date End Date Bertin Langford MD [address] [place] [address] PCP - General FAMILY PRACTICE 10/02/18
--- OUTSIDE RECORDS SUMMARY | 2024-04-15 17:47 | XMS_ITS | Clinical Summary ---
Author Organization [facility] Address [address] [place] [address] Care Team Providers Care Ice Bag Assembler Name Role Phone Delmer Goss MD Unavailable [...] doses total 30 tablet 2 9 Active sbske-0-jac-epa -fish oil 300-1,000 mg capsule,delayed release(DR/EC) Take [...] daily Active pen needle, diabetic (Sure-Fine Pen [place]) 31 gauge x 5/16 needle Use to [...] hyperglycemia, with long-term current use of insulin ([facility]) USE TO TEST BLOOD SUGARS 3 TIMES DAILY DX:E11.65 insulin dependent 300 strip 3 4 Active metFORMIN (GLUCOPHAGE) 1,000 mg tablet TAKE 1 TABLET BY MOUTH TWICE A DAY WITH FOOD 180 tablet 3 4 Active insulin degludec (TRESIBA) 100 unit/mL (3 mL) pen for injectionIndica tions:Type 2 diabetes mellitus with hyperglycemia, with long-term current use of insulin ([facility]) INJECT 20 UNITS TOTAL UNDER THE SKIN NIGHTLY 15 mL 3 4 Active Farxiga 10 mg tabletIndicatio ns:Type 2 diabetes mellitus with hyperglycemia, with long-term current use of insulin ([facility]) TAKE 1 TABLET BY MOUTH EVERY [...] High-fiber diet. Coronary artery disease invo lving craig coronary artery of craig heart without angina pectoris 07/17/2018 Assessment & Plan (01/08/2023 2:33 PM COLOR CORRECTOR): Stable status post recent repeat stenting of [...] regularly. Assessment & Plan (04/26/2020 3:45 PM COLOR CORRECTOR): Stable, without angina. I made no change in her excellent medical regimen today. I asked her to follow up with me annually, sooner if needed. I again advised her to diet and exercise regularly. Assessment & Plan (04/28/2019 3:47 PM COLOR CORRECTOR): Stable, without angina. 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 Assessment & Plan (07/18/2018 2:37 PM [...] 07/17/2018 Assessment & Plan (01/08/2023 2:33 PM COLOR CORRECTOR): Well controlled. Continue same therapy. Continue diet and exercise. Assessment & Plan (06/16/2022 10:40 AM CDT): Blood pressure is well controlled. Continue same therapy. Continue diet and exercise. Assessment & Plan (06/13/2021 11:15 AM CDT): Blood pressure is well controlled. Continue same therapy. Continue diet and exercise. Assessment & Plan (04/26/2020 3:45 PM COLOR CORRECTOR): Blood pressure is well controlled. Continue same [...] daily Assessment & Plan (01/08/2023 2:34 PM COLOR CORRECTOR): Well controlled. Continue high-intensity statin therapy. Assessment & Plan (11/10/2022 10:42 AM CDT): Chronic problem. Controlled on current Atorvastatin 40mg. Last lipid panel: 12/29/21 LDL=60, RP=403. Assessment & Plan (12/29/2021 3:37 PM CDT): [...] therapy Assessment & Plan (05/01/2019 4:15 PM COLOR CORRECTOR): Goal of treatment , LDL cholesterol less [...] Lipitor Assessment & Plan (04/28/2019 3:47 PM COLOR CORRECTOR): Lipids are very well controlled. Continue high-intensity [...] therapy Assessment & Plan (04/24/2018 4:31 PM COLOR CORRECTOR): Goal of treatment , LDL cholesterol less [...] therapy Assessment & Plan (01/27/2018 11:11 AM COLOR CORRECTOR): Check lipid panel and adjust statin accordingly Type 2 diabetes mellitus wit h hyperglycemia, with long-term current use of insulin 07/02/2013 Overview (06/02/2016): DMII WO CMP UNCNTRLD Assessment & Plan (02/15/2024 11:04 AM COLOR CORRECTOR): Chronic, not at goal with higher A1c [...] current Assessment & Plan (05/01/2019 4:14 PM COLOR CORRECTOR): Hba1c was Lab Results Component Value Date [...] untis Assessment & Plan (04/24/2018 4:31 PM COLOR CORRECTOR): Hba1c was Lab Results Component Value Date HGBA1C 6.9 04/24/2018 today, indicating DM control 1800 calorie, consistent carb diet recommended 25-45 min daily aerobic and resistance exercise recommended Prevention and treatment of hyypoglcyemia discussed. Blood glucose monitoring with fingers sticks 1-2 x day . Continue Basaglar, Victoza , Farxiga and Metformin . Assessment & Plan (01/27/2018 10:59 AM COLOR CORRECTOR): A1c 6.7. Trending upward. No change to medication. Advised to continue to focus on diet and exercise. Assessment & Plan (10/17/2017 10:52 AM CDT): Your Hba1c today was: Lab Results Component Value Date HGBA1C 6.2 10/17/2017 meaning a 3 month average sugar of : 121 Your goal hba1c is under 7.0 to prevent assisted diabetes complications ( eye , kidney and [...] units. Assessment & Plan (04/17/2017 3:27 PM COLOR CORRECTOR): Hba1c was 5.8 today, indicating proper DM control 1800 calorie, consistent carb diet recommended 30 min daily aerobic and resistance exercise recommended Prevention and treatment of hyypoglcyemia discussed. Blood glucose monitoring with fingers sticks 1-2 x day . Lower Basaglar to 14 units Assessment & Plan (01/12/2017 10:14 AM COLOR CORRECTOR): Hba1c was 5.8 today, indicating adequate DM [...] therapy. Assessment & Plan (04/26/2020 3:46 PM COLOR CORRECTOR): Lipids are very well controlled. Continue high-intensity [...] therapy. Assessment & Plan (04/17/2017 3:20 PM COLOR CORRECTOR): Goal of treatment , LDL cholesterol less [...] therapy Assessment & Plan (01/12/2017 10:08 AM COLOR CORRECTOR): Goal of treatment , LDL cholesterol less [...] Unspecified Assessment & Plan (02/15/2024 11:05 AM COLOR CORRECTOR): Chronic, stable. Continue current regimen including lisinopril [...] microalbumin Assessment & Plan (05/01/2019 4:14 PM COLOR CORRECTOR): Goal blood pressure is less than 140/85 Low salt diet recommended Daily aerobic exercise Continue current meds, including MORIA-I or ARB Assessment & Plan (04/28/2019 3:47 PM COLOR CORRECTOR): Blood pressure is excellent. Continue same therapy. Continue diet and exercise. Assessment & Plan (10/23/2018 4:10 PM CDT): Goal blood pressure is less than 140/85 Low salt diet recommended Daily aerobic exercise Continue current meds, including MOIRA-I or ARB Assessment & Plan (04/24/2018 4:31 PM COLOR CORRECTOR): Goal blood pressure is less than 140/85 Low salt diet recommended Daily aerobic exercise Continue current meds, including MOIRA-I or ARB Check microalbumin Assessment & Plan (01/27/2018 11:11 AM COLOR CORRECTOR): Controlled on current medications. Assessment & Plan (10/17/2017 12:49 PM CDT): Goal blood pressure is less than 140/85 Low salt diet recommended Daily aerobic exercise Continue current meds. Assessment & Plan (04/17/2017 3:20 PM COLOR CORRECTOR): Goal blood pressure is less than 140/85 Low salt diet recommended Daily aerobic exercise Continue current meds, including MOIRA-I or ARB Assessment & Plan (01/12/2017 10:08 AM COLOR CORRECTOR): Goal blood pressure is less than 140/85 [...] (09/09/2018): Added automatically from request for surgery [id number] Acute chest pain 08/30/2018 11/25/2019 Assessment & Plan (08/30/2018 11:54 AM CDT): Similar to chest pain prior to NH, however atypical in that she is usually [...] absence. NSTEMI (non-ST elevated myoc ardial infarction) ([facility]) 06/12/2018 11/25/2019 Overview (06/12/2018): Added automatically from request for surgery [id number] Encounters Date Type Department Care Team Description 03/17/2024 Telephone [facility] [address] [address] Delmer Goss MD PA in [facility] Ozempic 02/15/2024 10:51 AM COLOR CORRECTOR - 02/15/2024 11:59 PM COLOR CORRECTOR Hospital Encounter [address] [address] Type 2 diabetes mellitus with hyperglycemia, with long-term current use of insulin ([facility]) Discharge Disposition: Discharge to home or self care 02/15/2024 9:00 AM COLOR CORRECTOR Office Visit [facility] [address] [address] Delmer Goss MD Type 2 diabetes mellitus with hyperglycemia, with long-term current use of insulin (HCC) (Primary Dx); Hypertension associated with diabetes (HCC) 02/08/2024 11:15 AM COLOR CORRECTOR Office Visit [facility] [address] [place] [id number] Dylan Mosley MD Coronary artery disease involving craig coronary artery of craig heart without angina pectoris (Primary Dx); S/P [...] artery disease Non-STEMI (non-ST elevated myocardial infarction) ([facility]/HCC) ([facility]) Acute chest pain 08/30/2018 NSTEMI (non-ST elevated myocardial infarction) ([facility]) ([facility]) 06/12/2018 Added automatically from request for surgery [id number] Osteoporosis GERD (gastroesophageal reflu x disease) 2 [...] on file Legal Sex Female 2:00 AM COLOR CORRECTOR Gender Identity Not on file Sexual Orientation Straight 02/15/2024 9: 20 AM COLOR CORRECTOR Obstetrics History Last Filed Vital Signs Vital Sign Reading Time Taken Comments Blood Pressure 122/80 02/15/2024 9:24 AM COLOR CORRECTOR Pulse 68 02/15/2024 9:24 AM COLOR CORRECTOR Temperature 36.6 C (97.9 F) 10/17/2022 1:42 PM CDT Respiratory Rate 18 02/15/2024 9:24 AM COLOR CORRECTOR Oxygen Saturation 97% 02/08/2024 11: 24 AM COLOR CORRECTOR Inhaled Oxygen Concentration - - Weight 69.8 kg (153 lb 12.8 oz) 02/15/2024 9:24 AM COLOR CORRECTOR Height 167.6 cm (5' 6 ) 02/15/2024 9:24 AM COLOR CORRECTOR Body Mass Index 24.82 02/15/2024 9:24 AM COLOR CORRECTOR Plan of Treatment Health Maintenance Due Date [...] 02/03/2022, 01/11/2017 Medical Devices Implanted Type Area Carton Making Machinist Device Identifier Shelf Expiration Date Model / Serial / Lot [employer] [id number] Synergy 3mm 24mm 144cm Radiopaque 1 Access Port Inflation Lumen - [id number] Implanted:Qty : 1 on 06/12/2018 by Alejandro Wagner MD at [facility] Stent N/A: Coronary [employer] 03/19/2020 [id number] / / [id number] Description:To OM [employer] [id number] Synergy 3mm 16mm 144cm Radiopaque 1 Access Port Inflation Lumen - [id number] Implanted:Qty : 1 on 09/10/2018 by Alfredito Porter MD at [facility] Stent N/A: Coronary [employer] 04/30/2020 [id number] / / [id number] Description:LAD [employer] Synergy Xd Monorail 3mm 20mm 144cm Delivery System 1 Access Port [id number] - S0 - [id number] Implanted:Qty : 1 on 10/16/2022 by Rishabh Bishop MD at [facility] Stent N/A: Coronary Artery [employer] 05/15/2024 [id number] / 0 / [id number] [employer] Angio-Seal Vip 6fr Closere Device [id number] - S0 - [id number] Implanted:Qty : 1 on 10/16/2022 by Rishabh Bishop MD at [facility] Vascular Closure Device Right: Coronary Artery [employer] 04/26/2023 [id number] / [id number] / [id number] Procedures Procedure Name Priority Date/Time Associated Diagnosis Comments POCT GLUCOSE Routine 02/15/2024 9:24 AM COLOR CORRECTOR Type 2 diabetes mellitus with hyperglycemia, with long-term current use of insulin (HCC) POCT HEMOGLOBIN A1C Routine 02/15/2024 9 :24 AM COLOR CORRECTOR Type 2 diabetes mellitus with hyperglycemia, with long-term current use of insulin ([facility]) ALBUMIN CREATININE RATIO, URINE Routine 02/15/2024 8:00 AM COLOR CORRECTOR Type 2 diabetes mellitus with hyperglycemia, with long-term current use of insulin ([facility]) POCT LIPID PANEL Routine 02/08/2024 11:3 5 AM COLOR CORRECTOR Coronary artery disease involving craig coronary artery of craig heart without angina pectoris HM DIABETES EYE EXAM Routine 04/30/2023 10:30 AM COLOR CORRECTOR EGFR Routine 10/17/2022 3:30 AM CDT COLONOSCOPY 02/03/2022 8:41 AM COLOR CORRECTOR from Last 3 Months or Most Recently Relevant to Health Maintenance Results * (ABNORMAL) POCT hemoglobin A1c (02/15/2024 9:24 AM COLOR CORRECTOR) Hemoglobin A1C, POC 8.1 4.0 - 5.6 % Comment:None Capillary blood 02/15/2024 9 :24 AM COLOR CORRECTOR us Delmer Goss MD POINT OF CARE TEST ORDERABLES Fi nal Result * (ABNORMAL) POCT glucose (02/15/2024 9:24 AM COLOR CORRECTOR) Glucose Blood, POC 140 mg/dL Comment:None Blood 02/15/2024 9:24 AM COLOR CORRECTOR us Delmer Goss MD POINT OF CARE TEST ORDERABLES Fi nal Result * Albumin Creatinine Ratio, Urine (02/15/2024 8:00 AM COLOR CORRECTOR) Albumin Ur <12.0 mg/L Comment: Interpretive Data No reference range established. Current interpretive data was last revised 2018. Creatinine Ur 37.2 mg/dL [facility] Comment: Interpretive Data No reference range established. Current interpretive data was last revised 2018. Albumin Creatinine Ratio, Ur See Comment 1 - 29 [facility] Comment:Unable to calculate Urine 02/15/2024 8:00 AM COLOR CORRECTOR 02/15/2024 2:53 PM COLOR CORRECTOR us Delmer Goss MD LAB URINE ORDERABLES Final Resul t [facility] [id number] Department [place] [address] * POCT lipid panel (02/08/2024 11:35 AM COLOR CORRECTOR) Cholesterol, POC 147 mg/dL HDL, POC 49 mg/dL Triglycerides, POC 650 mg/dL LDL Cholesterol POC 32 mg/dL Chol/HDL Ratio, POC 0.65 Non-HDL Cholesterol, POC 98 mg/dL Cholesterol Total, POC 147 mg/dL Capillary blood 02/08/2024 1 1:35 AM COLOR CORRECTOR Dylan Mosley MD POINT OF CARE TEST ORDE AMRIK Final Result * HM DIABETES EYE EXAM (04/30/2023 10:30 AM COLOR CORRECTOR) Ibrahima Provider HEALTH MAINTENANCE Final Result * eGFR (10/17/2022 3:30 AM CDT) eGFR 98 mL/min/1. 73 m2 [facility] Comment: Interpretive Data Reference [...] MD LAB BLOOD ORDERABLES Fin al Result [facility] [address] Department [place] [address] * COLONOSCOPY (02/03/2022 8:41 AM COLOR CORRECTOR) Anatomical Region Laterality Modality Other Narrative Procedure Note Kendall Lisa MD - 02/03/2022 8:41 AM CST [facility] Endoscopy Lab Patient Name: Myra Romero Procedure Date: 02/03/2022 8:41 AM Date of : 1955 Admit Type: Outpatient Age: 67 Gender: Female Note Status: Finalized Attending MD: Kendall Lisa M.D. Procedure Date: 02/03/2022 Procedure: Colonoscopy Indications: High risk colon cancer surveillance: Personalhistory of colonic polyps, Last colonoscopy: December2016 Providers: Kendall Lisa M.D., CASANDRA Nunez (Anesthesia Staff), Shari Jose RN, Maxx Thacker,Video Machines Mechanic Referring MD: Trisha Kay NP Medicines: Monitored [...] bowel preparation was evaluated using the BBPS ([place] Bowel Preparation Scale) with scores of: Right [...] for surveillance. Procedure Code(s): --- Professional --- 00021, Colonoscopy, flexible; with biopsy, singleor multiple Diagnosis Code(s): --- Professional --- Z86.010, Personal history of colonic polyps D12.2, Benign neoplasm of ascending colon K62.89, Other specified diseases of anus andrectum K57.30, Diverticulosis of large intestine without perforation or abscess without bleeding CPT copyright 2020 [employer]. All rights reserved. The codes documented in this report are preliminary and upon air plant engineer reviewmay be revised to meet current compliance [...] Advance Directives For more information, please contact: [phone] * Full Code (Latest Code Status on [...] 3:15 PM 06/12/2018 3:16 PM Care Teams Ice Bag Assembler Relationship Specialty Start Date End Date French Browning DO [address] [place] [address] PCP - General Family Medicine 01/08/23 [place] [address] [place] [address] Consulting Physician Endocrinology Diabetes & Metabolism 04/24/18 Alejandro Wagner MD [address] [place] [address] Consulting Physician Cardiology 06/13/18
[2024-04-15] MEDS: MORPHINE SULFATE (*CRX) 4 MG/ML INJ IV PUSH (18:14)
--- NOTE | 2024-04-15 19:10 | PM.IMHP ---
H&P: HPI History of Present Illness Date/Time: 04/15/24 19:00 Chief Complaint: Chest pain. Narrative: This is a very pleasant 69-year-old female with coronary artery disease and history of [place] in 2019 status post stent x2 with in-stent restenosis in 2022, hypertension, dyslipidemia, and type 2 diabetes mellitus who presented to the emergency department via private vehicle for evaluation of chest pain. The patient provides the following history. Her community services officer is at [facility] although she cannot remember his name at this time. Her last stress test was in 2022 after she started having chest pain at which time she was found to have in stent restenoses. She has been maintained on dual anti-platelet therapy since that time and states compliance with her medications. 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 She finished her day at work however the chest tightness persisted and she decided to come in for evaluation. Symptoms are somewhat reminiscent to those she had before her [place] in 2019. She denies syncope, near syncope, shortness of breath, pleuritic pain, palpitations, nausea, vomiting, epigastric and abdominal pain, bloating, belching, lower extremity edema, and calf pain. In the ED: Her vital signs were stable on arrival. CMP and CBC were pretty unremarkable with the only outliers being a BUN of 25 and a creatinine of 1.33. Initial troponin was less than 0.012. EKG showed sinus rhythm with borderline ST T T-wave changes, mainly in inferolateral leads. She was given aspirin 324 mg and morphine 4 mg and she is currently without chest discomfort. She reports immediate pain in the left forearm after receiving IV morphine and within several minutes the vein was noted to be firm and red. She has never had similar symptoms and she denies lightheadedness, chest pain, shortness of breath, swelling, and rash. She is being admitted in this setting for close monitoring and Cardiology consultation. Review of Systems Review of Systems: 12 systems were reviewed and are negative except for as per HPI. [facility] Past Medical History Medical History (Updated 04/15/24 @ 19:45 by Carmina Stahl PA-C) Hyperlipidemia Hypertension Gastroesophageal reflux disease Insulin dependent type 2 diabetes mellitus Coronary artery disease Generalized anxiety disorder Retrolisthesis 2 mm retrolisthesis at C4-5 Diverticulitis Mixed stress and urge urinary incontinence History of anesthesia reaction Food allergy Seasonal allergies Arthritis Depression Diverticulosis Myocardial infarction (05/2018) Surgical History Surgical History (Updated 04/15/24 @ 19:20 by Carmina Stahl PA-C) Status post excision of Leonard neuroma left foot History of cardiac catheterization History of lateral meniscus repair of right knee History of lateral meniscus repair of left knee History of section History of oophorectomy History of hand surgery trigger finger release right ring finger History of coronary artery stent placement History of hysterectomy Family History Family History Father Diabetes mellitus Heart disease Sibling Pancreatic cancer Type 1 diabetes Brother Family history of pancreatic cancer Father Family history of type 2 diabetes mellitus Mother Heart disease Hypertension Polycystic disease of gallbladder Grandparent Hardening of the arteries of the brain Other Arthritis Nerve disorder Social History Social History (Updated 04/15/24 @ 19:21 by Carmina Stahl PA-C) Social History: Surrogate medical decision maker: Itzel Romero, daughter ([phone]). Code status: Full code. Smoking packs per day: 1 Smoking cigarettes per day: 20.0 Years smoked: 5 Smoking pack-years: 5.00 Smoking status: Former smoker Tobacco type: cigarettes Smoking end date: 02/26/79 Alcohol intake: current Drinks per week: 0 Alcohol use details: Rare alcohol use in moderation Substance use: never Substance use type: does not use Do You Feel Safe in your Home?: Yes Lack of Transportation: No Lack of Food: Never True Current Housing: I Have Housing Concerned About Future Housing: No Difficulty Paying Gas/Electric Bills: No Difficulty Paying for Meds: No Currently Unemployed: No Education: Associate Degree Difficulty w/ Childcare or Family Care: No Living arrangements: with family Additional living arrangements comments: . 2 Children. Lives with daughter. 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 Spiritual care concerns: No Meds Home Medications and Allergies Home Medications ?Medication ?Instructions ?Recorded ?Confirmed ?Type aspirin 81 mg tablet,delayed 81 mg PO DAILY 01/31/19 04/15/24 History release (Adult Low Dose Aspirin) clopidogrel 75 mg tablet (Plavix) 75 mg PO DAILY 01/31/19 04/15/24 History dapagliflozin propanediol 10 mg 10 mg PO DAILY 01/31/19 04/15/24 History tablet (Farxiga) metformin 1,000 mg tablet 1,000 mg PO BID 01/31/19 04/15/24 History insulin degludec 100 unit/mL (3 20 unit subcut QPM 07/30/20 04/15/24 History mL) subcutaneous pen multivitamin with folic acid 400 See Rx Instructions .Route 04/09/23 04/15/24 Rx mcg tablet (Daily-Carmen (with folic .COMPLEX #94 tabs acid)) fluticasone propionate 50 1 spray intranasal DAILY PRN 04/19/23 04/15/24 Rx mcg/actuation nasal allergy symptoms #50 mL spray,suspension (Flonase Allergy Relief) nitroglycerin 0.4 mg sublingual 0.4 mg sublingual PRN PRN Chest 04/19/23 04/15/24 Rx tablet Pain #30 tabs semaglutide 0.25 mg or 0.5 mg (2 0.5 mg subcut WEEKLY 04/19/23 04/15/24 History mg/1.5 mL) subcutaneous pen injector zoledronic acid 5 mg/100 mL in See Rx Instructions IV .[id number] 05/23/23 04/15/24 Rx mannitol 5 %-water intravenous #100 mL piggybck (Reclast) magnesium 200 mg tablet 200 mg PO DAILY #7 tabs 05/25/23 04/15/24 Rx methocarbamol 750 mg tablet See Rx Instructions .Route 09/24/23 04/15/24 Rx .COMPLEX #90 tabs atorvastatin 40 mg tablet See Rx Instructions .Route 12/18/23 04/15/24 Rx .COMPLEX #90 tabs lisinopril 20 mg tablet See Rx Instructions .Route 12/18/23 04/15/24 Rx .COMPLEX #90 tabs metoprolol tartrate 50 mg tablet 50 mg PO QPM 12/28/23 04/15/24 History bupropion HCl 150 mg 24 hr tablet, 150 mg PO QAM #90 tabs 01/02/24 04/15/24 Rx extended release (Wellbutrin XL) amlodipine 5 mg tablet See Rx Instructions .Route 02/04/24 04/15/24 Rx .COMPLEX #90 tabs gabapentin 100 mg capsule See Rx Instructions .Route 02/04/24 04/15/24 Rx .COMPLEX #90 caps celecoxib 100 mg capsule See Rx Instructions .Route 03/31/24 04/15/24 Rx .COMPLEX #60 caps Allergies Allergy/AdvReac Type Severity Reaction Status Date / Time adhesive Allergy Intermediate unknown Verified 04/15/24 18:20 Iodinated Contrast Media Allergy Intermediate Hives Verified 04/15/24 18:20 Penicillins Allergy Unknown Hives Verified 04/15/24 18:20 IVP dye Allergy Intermediate Hives Uncoded 04/15/24 18:20 Vital Signs Vital Signs - 24 hr 04/15/24 16:30 04/15/24 17:22 04/15/24 17:27 Temperature 98.0 F Pulse Rate 73 70 70 Respiratory Rate 20 16 Blood Pressure 136/65 131/69 Pulse Oximetry 97 97 Oxygen Delivery Room Air 04/15/24 18:26 Temperature Pulse Rate 71 Respiratory Rate 15 Blood Pressure 128/64 Pulse Oximetry 98 Oxygen Delivery Exam Narrative: General: Well-developed, nontoxic-appearing female sitting up in bed in no acute distress. She appears a bit younger than her stated age. Weight: 67.9 kg. BMI: 24.2. HEENT: PERRL, EOMI. Sclera anicteric. Oral mucosa moist. Oropharynx clear. Neck: Supple. No JVD. Respiratory: Lungs are clear to auscultation bilaterally. Cardiovascular: Regular rate and rhythm with S1-S2. Chest: No tenderness to palpation over the chest wall. Gastrointestinal: Abdomen is soft, nontender, and nondistended with positive bowel sounds. Skin: Warm and dry. No rash or lesions on limited exam. Extremities: No cyanosis, clubbing, or edema. Radial and pedal pulses intact. Neurological: Alert. Cranial nerves 2-12 are grossly intact. No gross focal deficits to casual conversation. Psychiatric: Pleasant and cooperative with normal mood and affect. Judgment and insight intact. H&P: Results Labs Labs: Short CBC 04/15/24 Range/Units 16:30 WBC 7.3 (4.5-10.0) K/mm3 Hgb 13.0 (12.0-15.0) g/dL Hct 39.6 (37.0-47.0) % Plt Count 330 (150-375) k/mm3 [facility] 04/15/24 16:30 Sodium 137 Potassium 4.5 Chloride 104 Carbon Dioxide 21 L BUN 25 H D Creatinine 0.81 Glucose 133 H Calcium 9.2 Cardiac Enzymes 04/15/24 Range/Units 16:30 Troponin I < 0.012 (0.000-0.034) ng/mL Liver Function 04/15/24 Range/Units 16:30 Total Bilirubin 0.5 (0.2-1.3) mg/dL AST 25 (14-36) U/L ALT 23 (6-35) U/L Alkaline Phosphatase 51 (38-126) U/L Albumin 4.1 (3.5-5.1) g/dL Imaging Chest X-Ray 04/15/24 16:55 IMPRESSION: No acute cardiopulmonary process. 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 Labs, imaging, EKG, and all reports were personally reviewed. EKG showed sinus rhythm with nonspecific ST-T changes and initial troponin was negative. She received aspirin 324 mg and morphine 4 mg with improvement in her symptoms and she is without discomfort at this time. She appears to have superficial phlebitis in a left forearm vein after receiving morphine and warm compresses have been ordered; she was instructed to keep a close eye on the area and alert us to any changes. She will be NPO after midnight for a possible stress test tomorrow. If a cardiac catheterization is deemed necessary, she will need to be premedicated due to a reported contrast allergy. Blood pressures were reviewed and they are stable. Random glucose was 133. Continue basal insulin. Initiate sliding scale insulin, Accu-Cheks, and hypoglycemic protocol. The rest of her home medications will be reviewed and resumed as appropriate. Findings and treatment plan were discussed with the patient and her daughter. Questions were solicited and answered to satisfaction. The patient's medical management will be taken over by the hospitalist team in a.m. Quality VTE Prophylaxis VTE prophylaxis: mechanical ordered The patient has been admitted under observation status. Hospitalist MIPS Advance Care Plan I have confirmed that the patient's Advanced Care Plan is present, code status is documented, or surrogate decision maker is listed in patient medical record.: Yes Medication Reconciliation I have utilized all available resources to obtain, update and review the patients current medications (includes all prescriptions, OTC, herbals, cannabis, and nutritional supplements).: Yes
--- NOTE | 2024-04-15 19:34 | ECG_ITS ---
Test Date: 2024-04-15 22:08:23 Measurements Intervals [place] Rate: 63 P: 0 TN: 0 QRS: 2 QRSD: 78 T: 6 QT: 409 QTc: 422 Interpretive Statements SINUS RHYTHM WITH SUPRAVENTRICULAR BIGEMINY NONSPECIFIC ST & T-WAVE ABNORMALITY- DIFFUSE LEADS BASELINE ARTIFACT- I, II, AVR, AVL ABNORMAL ECG Compared to ECG 04/15/2024 16:22:43 SUPRAVENTRICULAR BIGEMINY NOW PRESENT Electronically Signed On 04-16-2024 07:17:33 EMPLOYMENT PROGRAMS ANALYST by Maxime Vuong D.O.
[2024-04-15 19:42] LABS: Troponin I < 0.012 ng/mL (0.000-0.034)
[2024-04-15] MEDS: METOPROLOL TARTRATE 50 MG TAB PO (21:55)
[2024-04-15 22:01] LABS: Glucose Point of Care 123 mg/dl (65-105)
--- NOTE | 2024-04-15 22:10 | PC.NURSE ---
Patient BG 123 at this time. Per Insulin protocol, no dose required.
[2024-04-15 22:27] LABS: Troponin I < 0.012 ng/mL (0.000-0.034)
[2024-04-15] MEDS: GABAPENTIN 100 MG CAPSULE BY MOUTH (23:02)
[2024-04-16] VITALS (17 sets, daily range): BP systolic 110–131; BP diastolic 50–82; PULSE 61–81; RESP 14–18; TEMP 36.4–36.8; O2SAT 95–100; BMI 23.4
--- NOTE | 2024-04-16 | ECHO_ITS ---
Patient Info Name: Marge Romero Age: 69 years : 1955 Gender: Female Ht: 66 in Wt: 145 lbs BSA: 1.76 m2 HR: 62 bpm BP: 124 / 71 mmHg Heart Rhythm: Sinus Rhythm Technical Quality: Good Exam Date: 04/16/2024 2:37 PM Exam Location: Echo Lab Patient Status: Inpatient Admit Date: 04/15/2024 Staff Ordering Physician: Alicia Arnold MD Relay Motorman: Kendra Rowell RDCS Attending Provider: Rashard Cerna MD Exam Type: CA echo dop color flow w con Study Info Indications R07.9 - Chest pain, unspecified Complete two-dimensional, color flow and Doppler transthoracic echocardiogram is performed with contrast to opacify the left ventricle and to improve the deliniation of the left ventricle endocardial borders. Contrast/Agitated Saline Contrast/Ag. Saline: Definity Amount: 2.00 ml Administered By: Kendra Rowell RDCS Existing IV Access: Yes IV Access Condition: patent with no signs of infiltration Summary 1. Left ventricular chamber dimension is normal. 2. Left ventricular systolic function is normal, estimated at 55-60%. 3. There is hypokinesis of the basal and mid anterolateral wall. 4. The left ventricular diastolic function is grade I diastolic dysfunction. 5. Right ventricular systolic function is normal. 6. There is mild tricuspid valve regurgitation. Left Ventricle There is hypokinesis of the basal and mid anterolateral wall. Left ventricular chamber dimension is normal. Left ventricular systolic function is normal, estimated at 55-60%. There is no increased left ventricular wall thickness. The left ventricular diastolic function is grade I diastolic dysfunction. Right Ventricle Right ventricular chamber dimension is normal. Right ventricular systolic function is normal. Left Atria Left atrial chamber dimension is normal. Right Atria Right atrial chamber dimension is normal. Atrial Septum Intact interatrial septum visualized by color flow imaging. Aortic Valve The aortic valve is trileaflet. There is no aortic valve stenosis. There is no aortic valve regurgitation. Pulmonic Valve The pulmonic valve is not well visualized. There is trace pulmonic regurgitation. Mitral Valve There is trace mitral valve regurgitation. Tricuspid Valve There is mild tricuspid valve regurgitation. Pericardium/Pleural The pericardium appears epicardial fat pad. There is no pericardial effusion. Inferior Vena Cava Normal inferior vena cava with >50% collapse upon inspiration consistent with normal right atrial pressure, 3 mmHg. Aorta The aortic root size at the sinus of Valsalva is normal. Left Ventricular Outflow Tract Name Value Normal LVOT 2D LVOT Diameter 1.98 cm LVOT Doppler LVOT Peak Gradient 4 mmHg LVOT Mean Gradient 2 mmHg LVOT VTI 17.39 cm LVOT VTI/AV VTI Ratio 0.66 LVOT Stroke Volume 53.29 ml LVOT CO 3.47 l/min LVOT CI 1.98 L/min/m2 Mitral Valve Name Value Normal MV Doppler MV Decel Baker 163.74 cm/s2 MV PHT 0 s MV Area (PHT) 2.27 cm2 4.00-5.00 MV Diastolic Function MV E Peak Velocity 54.70 cm/s MV A Peak Velocity 78.43 cm/s MV E/A 0.70 MV Decel Time 0 s MV Annular TDI MV E/e' (Septal) 7.54 <=8.00 MV E/e' (Lateral) 6.29 <=8.00 MV E/e' (Average) 6.92 Tricuspid Valve Name Value Normal TV Regurgitation Doppler TR Peak Velocity 224.14 cm/s TR Peak Gradient 20 mmHg Estimated PAP/RSVP RA Pressure 3 mmHg <=5 PA Systolic Pressure 23 mmHg <36 RV Systolic Pressure 23 mmHg <36 Aorta Name Value Normal Ascending Aorta Ao Root Diameter (MM) 2.57 cm Ao Root Diam Index (MM) 1.47 cm/m2 Aortic Valve Name Value Normal AV Doppler AV Peak Velocity 125.87 cm/s AV Peak Gradient 6 mmHg AV Mean Gradient 4 mmHg AV VTI 26.33 cm AV Area (Cont Eq VTI) 2.02 cm2 >=3.00 AV Area (Cont Eq Darwin) 2.38 cm2 AV Regurgitation 2D LVOT Area 3.06 cm2 Ventricles Name Value Normal LV Dimensions 2D/MM IVS Diastolic Thickness (2D) 0.74 cm 0.60-1.00 LVID Diastole (2D) 4.78 cm 3.80-5.20 LVIW Diastolic Thickness (2D) 0.72 cm 0.60-0.90 LVID Systole (2D) 3.02 cm 2.20-3.50 LVOT Diameter 1.98 cm LV Mass (2D Cubed) 112.19 g 67.00-162.00 LV Mass Index (2D Cubed) 0.01 g/cm2 0.00-0.01 Relative Wall Thickness (2D) 0.30 LV Fractional Shortening/Ejection Fraction 2D/MM LV Fractional Shortening (2D) 37 % 27-45 LV EF (2D Teicholz) 67 % 54-74 LV Diastolic Volume (4C MOD) 63.76 ml LV EF (4C MOD) 56 % LV Diastolic Volume (2C MOD) 46.69 ml LV EF (2C MOD) 63 % LV Diastolic Volume (BP MOD) 59.65 ml 46.00-106.00 LV Diastolic Volume Index (BP MOD) 0.03 l/m2 0.03-0.06 LV Systolic Volume (BP MOD) 22.34 ml 14.00-42.00 LV Systolic Volume Index (BP MOD) 0.01 l/m2 0.01-0.02 LV EF (BP MOD) 63 % 54-74 LV Diastolic Length (4C) 7.58 cm LV Systolic Length (4C) 5.57 cm LV Stroke Volume (4C MOD) 35.90 ml Atria Name Value Normal LA Dimensions LA Dimension (MM) 4.17 cm 2.70-3.80 LA Volume (4C A-L) 26.04 ml LA Volume (BP A-L) 29.35 ml RA Dimensions RA Area (4C) 15.99 cm2 <=18.00 Report Signatures
--- NOTE | 2024-04-16 | PC.NURSE ---
This patient, Marge Romero, was admitted to IMU Room 206-01. Patient/family oriented to hospital policies and general routines including ID bracelet, bed and alarms, visiting hours, pain management, procedures, bathroom and other care routines, personal items, smoking policy, room service/diet, and visiting hours. Information on how to activate the Rapid Response Team has been discussed. Patient/Family are encouraged to report perceived risks to care and to ask questions if they do not understand what they are told or what they should do.
[2024-04-16] MEDS: ACETAMINOPHEN 325 MG TABLET 650 MG PO (05:33)
[2024-04-16 06:04] LABS: Anion Gap 9 mmol/L (4-12); Blood Urea Nitrogen 21 mg/dL (7-17); Calcium 8.7 mg/dL (8.4-10.2); Carbon Dioxide 25 mmol/L (22-30); Chloride 102 mmol/L (98-107); Estimated CRCL calculation 83 ml/min; Estimated Glomerular Filt Rate > 60; Glucose 114 mg/dL (65-110); Magnesium 1.5 mg/dL (1.6-2.3); Sodium 136 mmol/L (137-145)
[2024-04-16 08:15] LABS: Glucose Point of Care 175 mg/dl (65-105)
[2024-04-16] MEDS: EMPAGLIFLOZIN 25 MG TABLET BY MOUTH (09:25)
[2024-04-16] MEDS: ATORVASTATIN 40 MG TABLET BY MOUTH (09:25)
[2024-04-16] MEDS: buPROPion HCL XL (24 HR) 150 MG TABCR PO (09:25)
[2024-04-16] MEDS: MAGNESIUM OXIDE 200 MG TABLET PO (09:25)
[2024-04-16] MEDS: CLOPIDOGREL BISULFATE 75 MG TABLET PO (09:26)
[2024-04-16] MEDS: lisinopriL 20 MG TABLET BY MOUTH (09:26)
[2024-04-16] MEDS: ASPIRIN 81 MG ENTERIC TABLET PO (09:26)
[2024-04-16 11:20] LABS: Glucose Point of Care 146 mg/dl (65-105)
--- NOTE | 2024-04-16 13:49 | PM.CNCAR ---
Assessment and Plan Assessment and plan (1) Chest pain: Code(s): R07.9 - Chest pain, unspecified Status: Acute Plan 1. Chest pain 2. Coronary artery disease s/p PCI to the mid LAD in August 2018 for ACS with in-stent restenosis s/p PCI to LAD again in September 2022 3. Hypertension 4. Hyperlipidemia 5. Diabetes mellitus. Hgb A1c 8.0 PLAN: -Echocardiogram already ordered and pending, will follow up on the results. -Discussed options of stress test vs proceed directly with cardiac catheterization, and risks vs benefits of both options. After patient discussion and her preferences, will obtain nuclear stress test tomorrow. If cardiac catheterization is needed, she will need to be premedicated due to contrast allergy. Patient states if she does need to undergo cath, then she prefers for it to be done at a [facility] facility (had her prior interventions done at [facility]). -Continue ASA, Plavix, high intensity statin. LDL is 47 as of 04/11/2024. -Continue Amlodipine, Lisinopril, Metoprolol. History of Present Illness History of Present Illness Consult date/time: 04/16/24 13:49 Requesting physician: Carmina Stahl PA-C Consult reason: chest pain Reason For Visit: Chest Pain Narrative: We are consulted for chest pain. Marge is a 69 year old female with known CAD s/p PCI to the mid LAD in August 2018 for ACS with in-stent restenosis s/p PCI to LAD again in September 2022. Follows with Dr. Mosley at [facility]. 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 This lasted for a few hours. Had intermittent episodes since then. No clear associated with exertion. She is currently feeling well. Troponins are negative x 3. EKG with sinus rhythm, nonspecific STTW abnormality. Review of Systems Review of Systems: All systems reviewed & are unremarkable except as noted in HPI and below (HPI) [facility] Past Medical History Medical History Hyperlipidemia Hypertension Gastroesophageal reflux disease Insulin dependent type 2 diabetes mellitus Coronary artery disease Generalized anxiety disorder Retrolisthesis 2 mm retrolisthesis at C4-5 Diverticulitis Mixed stress and urge urinary incontinence History of anesthesia reaction Food allergy Seasonal allergies Arthritis Depression Diverticulosis Myocardial infarction (05/2018) Surgical History Surgical History Status post excision of Leonard neuroma left foot History of cardiac catheterization History of lateral meniscus repair of right knee History of lateral meniscus repair of left knee History of section History of oophorectomy History of hand surgery trigger finger release right ring finger History of coronary artery stent placement History of hysterectomy Family History Family History Father Diabetes mellitus Heart disease Sibling Pancreatic cancer Type 1 diabetes Brother Family history of pancreatic cancer Father Family history of type 2 diabetes mellitus Mother Heart disease Hypertension Polycystic disease of gallbladder Grandparent Hardening of the arteries of the brain Other Arthritis Nerve disorder Social History Social History Social History: Surrogate medical decision maker: Itzel Romero, daughter ([phone]). Code status: Full code. Smoking packs per day: 1 Smoking cigarettes per day: 20.0 Years smoked: 5 Smoking pack-years: 5.00 Smoking status: Former smoker Tobacco type: cigarettes Smoking end date: 02/26/79 Alcohol intake: current Drinks per week: 1 Alcohol use details: Rare alcohol use in moderation Substance use: never Substance use type: does not use Do You Feel Safe in your Home?: Yes Lack of Transportation: No Lack of Food: Never True Current Housing: I Have Housing Concerned About Future Housing: No Difficulty Paying Gas/Electric Bills: No Difficulty Paying for Meds: No Currently Unemployed: No Education: Associate Degree Difficulty w/ Childcare or Family Care: No Living arrangements: with family Additional living arrangements comments: . 2 Children. Lives with daughter. 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 Spiritual care concerns: No Meds Home Medications and Allergies Home Medications ?Medication ?Instructions ?Recorded ?Confirmed ?Type aspirin 81 mg tablet,delayed 81 mg PO DAILY 01/31/19 04/15/24 History release (Adult Low Dose Aspirin) clopidogrel 75 mg tablet (Plavix) 75 mg PO DAILY 01/31/19 04/15/24 History dapagliflozin propanediol 10 mg 10 mg PO DAILY 01/31/19 04/15/24 History tablet (Farxiga) metformin 1,000 mg tablet 1,000 mg PO BID 01/31/19 04/15/24 History insulin degludec 100 unit/mL (3 20 unit subcut QPM 07/30/20 04/15/24 History mL) subcutaneous pen multivitamin with folic acid 400 See Rx Instructions .Route 04/09/23 04/15/24 Rx mcg tablet (Daily-Carmen (with folic .COMPLEX #94 tabs acid)) fluticasone propionate 50 1 spray intranasal DAILY PRN 04/19/23 04/15/24 Rx mcg/actuation nasal allergy symptoms #50 mL spray,suspension (Flonase Allergy Relief) nitroglycerin 0.4 mg sublingual 0.4 mg sublingual PRN PRN Chest 04/19/23 04/15/24 Rx tablet Pain #30 tabs zoledronic acid 5 mg/100 mL in See Rx Instructions IV .[id number] 05/23/23 04/15/24 Rx mannitol 5 %-water intravenous #100 mL piggybck (Reclast) magnesium 200 mg tablet 200 mg PO DAILY #7 tabs 05/25/23 04/15/24 Rx methocarbamol 750 mg tablet See Rx Instructions .Route 09/24/23 04/15/24 Rx .COMPLEX #90 tabs atorvastatin 40 mg tablet See Rx Instructions .Route 12/18/23 04/15/24 Rx .COMPLEX #90 tabs lisinopril 20 mg tablet See Rx Instructions .Route 12/18/23 04/15/24 Rx .COMPLEX #90 tabs metoprolol tartrate 50 mg tablet 50 mg PO BID 12/28/23 04/16/24 History bupropion HCl 150 mg 24 hr tablet, 150 mg PO QAM #90 tabs 01/02/24 04/15/24 Rx extended release (Wellbutrin XL) amlodipine 5 mg tablet See Rx Instructions .Route 02/04/24 04/15/24 Rx .COMPLEX #90 tabs gabapentin 100 mg capsule See Rx Instructions .Route 02/04/24 04/15/24 Rx .COMPLEX #90 caps celecoxib 100 mg capsule See Rx Instructions .Route 03/31/24 04/15/24 Rx .COMPLEX #60 caps omega-3 fatty acids 1,500 mg PO BID 04/16/24 04/16/24 History semaglutide 0.25 mg or 0.5 mg (2 1 mg subcut WEEKLY 04/16/24 04/16/24 History mg/3 mL) subcutaneous pen injector (Ozempic) Allergies Allergy/AdvReac Type Severity Reaction Status Date / Time adhesive Allergy Intermediate unknown Verified 04/15/24 18:20 Iodinated Contrast Media Allergy Intermediate Hives Verified 04/15/24 18:20 Penicillins Allergy Unknown Hives Verified 04/15/24 18:20 IVP dye Allergy Intermediate Hives Uncoded 04/15/24 18:20 Vital Signs Vital Signs - 24 hr 04/15/24 16:30 04/15/24 17:22 04/15/24 17:27 Temperature 36.7 C Pulse Rate 73 70 70 Respiratory Rate 20 16 Blood Pressure 136/65 131/69 Pulse Oximetry 97 97 Oxygen Delivery Room Air 04/15/24 18:26 04/15/24 19:29 04/15/24 21:55 Temperature Pulse Rate 71 79 73 Respiratory Rate 15 17 Blood Pressure 128/64 129/93 H Pulse Oximetry 98 95 Oxygen Delivery 04/15/24 22:15 04/15/24 23:50 04/16/24 00:00 Temperature 36.6 C Pulse Rate 74 73 75 Respiratory Rate 13 17 17 Blood Pressure 120/63 119/64 110/78 Pulse Oximetry 97 97 98 Oxygen Delivery 04/16/24 00:00 04/16/24 00:00 04/16/24 02:00 Temperature Pulse Rate 69 67 Respiratory Rate Blood Pressure Pulse Oximetry Oxygen Delivery Room Air 04/16/24 04:00 04/16/24 04:00 04/16/24 04:18 Temperature 36.6 C Pulse Rate 63 74 Respiratory Rate 17 Blood Pressure 131/52 L Pulse Oximetry 100 Oxygen Delivery Room Air 04/16/24 06:00 04/16/24 08:06 04/16/24 10:48 Temperature 36.7 C Pulse Rate 66 62 Respiratory Rate 14 Blood Pressure 126/82 Pulse Oximetry 98 95 Oxygen Delivery Room Air 04/16/24 11:33 Temperature 36.7 C Pulse Rate 62 Respiratory Rate 14 Blood Pressure 124/71 Pulse Oximetry 98 Oxygen Delivery Exam Const: General: comfortable and no acute distress HENMT: Mouth: Yes moist mucous membranes Eyes: General: appearance normal, both eyes and all related structures Sclera: sclerae normal Resp: Effort & Inspection: normal respiratory effort Cardio: Rate: regular rate Rhythm: regular rhythm Heart sounds: no murmurs Skin: General skin exam: normal color Neuro: Speech: normal speech Psych: Mental Status: mental status grossly normal Affect: normal affect Results Labs and Meds 04/15/24 16:30 04/16/24 05:29 Lab results: Cardiac Enzymes 04/15/24 04/15/24 04/15/24 Range/Units 16:30 19:16 21:58 AST 25 (14-36) U/L Troponin I < 0.012 < 0.012 < 0.012 (0.000-0.034) ng/mL Coagulation 04/15/24 Range/Units 16:30 PT 12.5 (11.1-14.7) Seconds APTT 24.6 (22.3-36.8) Seconds CBC 04/15/24 Range/Units 16:30 WBC 7.3 (4.5-10.0) K/mm3 RBC 4.68 (4.2-5.4) M/mm3 Hgb 13.0 (12.0-15.0) g/dL Hct 39.6 (37.0-47.0) % Plt Count 330 (150-375) k/mm3 Lymph # (Auto) 1.84 (0.9-3.2) K/mm3 [place] # (Auto) 0.5 (0.1-0.6) K/mm3 Eos # (Auto) 0.1 (0-0.3) K/mm3 Baso # (Auto) 0.0 (0.0-0.1) K/mm3 Comprehensive Metabolic Panel 04/15/24 04/16/24 Range/Units 16:30 05:29 Sodium 137 136 L (137-145) mmol/L Potassium 4.5 4.0 (3.4-5.0) mmol/L Chloride 104 102 (98-107) mmol/L Carbon Dioxide 21 L 25 (22-30) mmol/L BUN 25 H D 21 H (7-17) mg/dL Creatinine 0.81 0.49 L (0.7-1.0) mg/dL Glucose 133 H 114 H (65-110) mg/dL Calcium 9.2 8.7 (8.4-10.2) mg/dL AST 25 (14-36) U/L ALT 23 (6-35) U/L Alkaline Phosphatase 51 (38-126) U/L Total Protein 7.0 (6.3-8.2) g/dL Albumin 4.1 (3.5-5.1) g/dL Intake and Output 04/15/24 04/16/24 04/16/24 23:59 07:59 15:59 Intake Total 350 1435 Balance 350 1435 Intake: Oral 350 1435 Other: # Unmeasured Voids 0 Patient Weight 04/16/24 23:59 Weight 65.9 kg
[2024-04-16] MEDS: PERFLUTREN LIPID MICROSPHERES 1.5 ML VIAL DILUTED TO 10 ML TOTAL VOLUME IV PUSH (15:15)
--- NOTE | 2024-04-16 15:31 | IVDEFINITY ---
Prior to administration of IV Definity the patient was educated on the risks and benefits of the imaging enhancing agent including potential adverse side effects. The patient verbalized understanding. Allergies were verified. No exclusion criteria were identified and at least one of the following inclusion criteria were met: 1) physician request, 2) patient technically difficult to image (per the [place] [employer]chocardi[employer] guidelines of two or more segments not discernable within the apical view), or 3) questionable left ventricular function. ?
--- NOTE | 2024-04-16 16:28 | PM.IMPN ---
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 Status: Acute (6) Superficial phlebitis of arm: Code(s): I80.8 - Phlebitis and thrombophlebitis of other sites Status: Acute Plan Typical chest pain ECHO pending Cardiology considering Stress test vs Cardiac cath Contineu ASpirin, Plavix, Statin, Metoprolol monitor cardiology following Hx of CAD s/p stents Continue above meds HTN contineu amlodipine and Lisinopril monitor DM2 SSI with accucheks and adjust with clinical course left forearm Phlebitis r/o DVT venous Doppler pending DVT prophylaxis on Sq Lovenox Subjective Date/time seen: 04/16/24 16:28 Interval history: Noted she had chest pressure with radiation to neck and jaw. Review of Systems Review of Systems: 12 systems were reviewed and are negative except for as per HPI. Exam Narrative: General: Well-developed, nontoxic-appearing female sitting up in bed in no acute distress. She appears a bit younger than her stated age. Weight: 67.9 kg. BMI: 24.2. HEENT: PERRL, EOMI. Sclera anicteric. Oral mucosa moist. Oropharynx clear. Neck: Supple. No JVD. Respiratory: Lungs are clear to auscultation bilaterally. Cardiovascular: Regular rate and rhythm with S1-S2. Chest: No tenderness to palpation over the chest wall. Gastrointestinal: Abdomen is soft, nontender, and nondistended with positive bowel sounds. Skin: Warm and dry. No rash or lesions on limited exam. Extremities: No cyanosis, clubbing, or edema. Radial and pedal pulses intact. Neurological: Alert. Cranial nerves 2-12 are grossly intact. No gross focal deficits to casual conversation. Psychiatric: Pleasant and cooperative with normal mood and affect. Judgment and insight intact. Objective Data Vital Signs Vital Signs: Vital Signs - 24 hr 04/15/24 16:30 04/15/24 17:22 04/15/24 17:27 Temperature 98.0 F Pulse Rate 73 70 70 Respiratory Rate 20 16 Blood Pressure 136/65 131/69 Pulse Oximetry 97 97 Oxygen Delivery Room Air 04/15/24 18:26 04/15/24 19:29 04/15/24 21:55 Temperature Pulse Rate 71 79 73 Respiratory Rate 15 17 Blood Pressure 128/64 129/93 H Pulse Oximetry 98 95 Oxygen Delivery 04/15/24 22:15 04/15/24 23:50 04/16/24 00:00 Temperature 97.8 F Pulse Rate 74 73 75 Respiratory Rate 13 17 17 Blood Pressure 120/63 119/64 110/78 Pulse Oximetry 97 97 98 Oxygen Delivery 04/16/24 00:00 04/16/24 00:00 04/16/24 02:00 Temperature Pulse Rate 69 67 Respiratory Rate Blood Pressure Pulse Oximetry Oxygen Delivery Room Air 04/16/24 04:00 04/16/24 04:00 04/16/24 04:18 Temperature 97.8 F Pulse Rate 63 74 Respiratory Rate 17 Blood Pressure 131/52 L Pulse Oximetry 100 Oxygen Delivery Room Air 04/16/24 06:00 04/16/24 08:00 04/16/24 08:00 Temperature Pulse Rate 66 78 Respiratory Rate Blood Pressure Pulse Oximetry Oxygen Delivery Room Air 04/16/24 08:06 04/16/24 10:00 04/16/24 10:48 Temperature 98.0 F Pulse Rate 62 74 Respiratory Rate 14 Blood Pressure 126/82 Pulse Oximetry 98 95 Oxygen Delivery Room Air 04/16/24 11:33 04/16/24 12:00 04/16/24 12:00 Temperature 98.1 F Pulse Rate 62 81 Respiratory Rate 14 Blood Pressure 124/71 Pulse Oximetry 98 Oxygen Delivery Room Air 04/16/24 14:00 04/16/24 16:00 Temperature 98.2 F Pulse Rate 76 61 Respiratory Rate 14 Blood Pressure 122/71 Pulse Oximetry 98 Oxygen Delivery Intake/Output Intake/Output: Intake & Output 04/13/24 04/14/24 04/15/24 04/16/24 23:59 23:59 23:59 23:59 Intake Total 1785 Balance 1785 Meds/Results Medications: Active Medications Generic Name Dose Route Start Last Admin Trade Name Freq PRN Reason Stop Dose Admin Acetaminophen 650 mg 04/15/24 19:51 04/16/24 05:33 Acetaminophen 325 Mg Tablet PO 650 mg Q6H PRN Administration Mild Pain (1-3) or Fever Amlodipine Besylate 5 mg 04/17/24 09:00 Amlodipine Besylate 5 Mg Tablet BY MOUTH Q48H LEANDER Aspirin 81 mg 04/16/24 09:00 04/16/24 09:26 Aspirin 81 Mg Enteric Tablet PO 81 mg DAILY LEANDER Administration Atorvastatin Calcium 40 mg 04/16/24 09:00 04/16/24 09:25 Atorvastatin 40 Mg Tablet BY MOUTH 40 mg DAILY LEANDER Administration Bupropion HCl 150 mg 04/16/24 09:00 04/16/24 09:25 Bupropion Hcl Xl (24 Hr) 150 Mg Tabcr PO 150 mg QAM LEANDER Administration Clopidogrel Bisulfate 75 mg 04/16/24 09:00 04/16/24 09:26 Clopidogrel Bisulfate 75 Mg Tablet PO 75 mg DAILY LEANDER Administration Dextrose 12.5 gm 04/15/24 19:51 Dextrose 50% 25 Gm/50 Ml Syringe IV PUSH PRN PRN Hypoglycemia Protocol Empagliflozin 25 mg 04/16/24 09:00 04/16/24 09:25 Empagliflozin 25 Mg Tablet BY MOUTH 25 mg DAILY LEANDER Administration Fluticasone Propionate 1 spray 04/15/24 19:54 Fluticasone Propionate 0.05% Na Spr 16 Gm Btl (*Bkc) NASAL DAILY PRN allergy symptoms Gabapentin 100 mg 04/15/24 22:00 04/16/24 13:18 Gabapentin 100 Mg Capsule BY MOUTH Not Given Q8HR [facility] Glucagon 1 mg 04/15/24 19:51 Glucagon For Inj 1 Mg Vial IM PRN PRN Hypoglycemia Protocol Glucose 15 gm 04/15/24 19:51 Glucose Oral Gel 15 Gm Of Glucse In 37.5 Gm Tube PO PRN PRN Hypoglycemia Protocol Dextrose 1,000 mls @ 100 mls/hr 04/15/24 19:51 Dextrose 5% 1,000 Ml IVPB PRN PRN Hypoglycemia Protocol Insulin Aspart 2 - 5 units 04/16/24 08:00 04/16/24 11:31 Insulin Aspart (*Bkc) 100 Units/Ml SUB-Q Not Given TIDWM LEANDER Protocol Insulin Aspart 1 - 2 units 04/15/24 21:00 04/15/24 22:11 Insulin Aspart (*Bkc) 100 Units/Ml SUB-Q Not Given HS [facility] Protocol Insulin Glargine 20 units 04/16/24 18:00 Insulin Glargine (*Bkc) 100 Units/Ml SUB-Q QPM [facility] Lisinopril 20 mg 04/16/24 09:00 04/16/24 09:26 Lisinopril 20 Mg Tablet BY MOUTH 20 mg DAILY [facility] Administration Magnesium Oxide 200 mg 04/16/24 09:00 04/16/24 09:25 Magnesium Oxide 200 Mg Tablet PO 200 mg Q48H LEANDER Administration Magnesium Oxide 400 mg 04/17/24 09:00 Magnesium Oxide 200 Mg Tablet PO Q48H LEANDER Metoprolol Tartrate 50 mg 04/15/24 19:55 04/15/24 21:55 Metoprolol Tartrate 50 Mg Tab PO 50 mg QPM [facility] Administration Multivitamins Therapeutic 1 tablet 04/15/24 19:55 Multivitamins Therapeutic Tab (*Bkc) BY MOUTH .COMPLEX LEANDER Nitroglycerin 0.4 mg 04/15/24 19:54 Nitroglycerin Sl 0.4 Mg Tablet SUBLINGUAL PRN PRN Chest Pain Radiology Results: ITS Impressions Chest X-Ray 04/15/24 16:55 IMPRESSION: No acute cardiopulmonary process. Labs Labs: Laboratory Results - last 24 hr 04/15/24 04/15/24 04/15/24 16:30 19:16 21:53 WBC 7.3 RBC 4.68 Hgb 13.0 Hct 39.6 MCV 84.6 MCH 27.8 MCHC 32.8 RDW 14.7 H Plt Count 330 MPV 9.4 Immature Gran % (Auto) 0.4 Neut % (Auto) 66.3 Lymph % (Auto) 25.2 [place] % (Auto) 7.0 Eos % (Auto) 1.0 Baso % (Auto) 0.1 L Lymph # (Auto) 1.84 [place] # (Auto) 0.5 Eos # (Auto) 0.1 Baso # (Auto) 0.0 Abs Immat Gran (auto) 0.03 Absolute Neuts (auto) 4.9 Absolute Nucleated RBC 0.000 Nucleated RBC % 0.0 PT 12.5 INR 0.9 APTT 24.6 Sodium 137 Potassium 4.5 Chloride 104 Carbon Dioxide 21 L Anion Gap 12 BUN 25 H D Creatinine 0.81 Estim Creat Clear Calc 53 Estimated GFR > 60 Glucose 133 H POC Capillary Glucose 123 H Hemoglobin A1c Calcium 9.2 Magnesium Total Bilirubin 0.5 AST 25 ALT 23 Alkaline Phosphatase 51 Troponin I < 0.012 < 0.012 Total Protein 7.0 Albumin 4.1 Lipase 222 04/15/24 04/16/24 04/16/24 21:58 05:29 08:07 WBC RBC Hgb Hct MCV MCH MCHC RDW Plt Count MPV Immature Gran % (Auto) Neut % (Auto) Lymph % (Auto) [place] % (Auto) Eos % (Auto) Baso % (Auto) Lymph # (Auto) [place] # (Auto) Eos # (Auto) Baso # (Auto) Abs Immat Gran (auto) Absolute Neuts (auto) Absolute Nucleated RBC Nucleated RBC % PT INR APTT Sodium 136 L Potassium 4.0 Chloride 102 Carbon Dioxide 25 Anion Gap 9 BUN 21 H Creatinine 0.49 L Estim Creat Clear Calc 83 Estimated GFR > 60 Glucose 114 H POC Capillary Glucose 175 H Hemoglobin A1c 8.0 H Calcium 8.7 Magnesium 1.5 L Total Bilirubin AST ALT Alkaline Phosphatase Troponin I < 0.012 Total Protein Albumin Lipase 04/16/24 11:11 WBC RBC Hgb Hct MCV MCH MCHC RDW Plt Count MPV Immature Gran % (Auto) Neut % (Auto) Lymph % (Auto) [place] % (Auto) Eos % (Auto) Baso % (Auto) Lymph # (Auto) [place] # (Auto) Eos # (Auto) Baso # (Auto) Abs Immat Gran (auto) Absolute Neuts (auto) Absolute Nucleated RBC Nucleated RBC % PT INR APTT Sodium Potassium Chloride Carbon Dioxide Anion Gap BUN Creatinine Estim Creat Clear Calc Estimated GFR Glucose POC Capillary Glucose 146 H Hemoglobin A1c Calcium Magnesium Total Bilirubin AST ALT Alkaline Phosphatase Troponin I Total Protein Albumin Lipase Quality VTE Prophylaxis VTE prophylaxis: mechanical ordered
[2024-04-16 16:29] LABS: Glucose Point of Care 127 mg/dl (65-105)
[2024-04-16] MEDS: INSULIN GLARGINE (*BKC) 100 UNITS/ML 20 UNITS SUB-Q (17:13)
[2024-04-16] MEDS: METOPROLOL TARTRATE 50 MG TAB PO (17:13)
[2024-04-16 21:23] LABS: Glucose Point of Care 163 mg/dl (65-105)
[2024-04-17] VITALS (12 sets, daily range): BP systolic 105–120; BP diastolic 57–76; PULSE 60–76; RESP 18–20; TEMP 36.5–36.8; O2SAT 95–100
[2024-04-17 04:21] LABS: Basophils Percent Auto 0.2 % (0.2-1.2); Eosinophils Absolute Auto 0.1 K/mm3 (0-0.3); Hematocrit 42.6 % (37.0-47.0); Immature Granulocyte Absolute 0.01 K/mm3 (0.00-0.031); Immature Granulocyte Percent A 0.2 % (0-0.5); Lymphocytes Absolute Auto 1.56 K/mm3 (0.9-3.2); Lymphocytes Percent Auto 26.1 % (18.3-44.2); Mean Corpuscular HGB Conc 32.9 g/dl (32-36); Mean Corpuscular Hemoglobin 28.5 pg (26-34); Mean Corpuscular Volume 86.6 fl (80-100); Mean Platelet Volume 9.5 fl (7.4-10.4); Monocytes Absolute Auto 0.5 K/mm3 (0.1-0.6); Neutrophils Absolute Auto 3.8 K/mm3 (1.3-6.7); Neutrophils Percent Auto 63.5 % (45.5-73.1); Platelet Count Result 306 k/mm3 (150-375); Red Blood Count 4.92 M/mm3 (4.2-5.4); Red Cell Distribution Width 14.7 % (11.5-14.5)
[2024-04-17 04:31] LABS: Alanine Aminotransferase 20 U/L (6-35); Albumin Level 3.8 g/dL (3.5-5.1); Alkaline Phosphatase 42 U/L (38-126); Anion Gap 10 mmol/L (4-12); Aspartate Amino Transferase 21 U/L (14-36); Bilirubin,Total 0.5 mg/dL (0.2-1.3); Blood Urea Nitrogen 22 mg/dL (7-17); Calcium 9.1 mg/dL (8.4-10.2); Carbon Dioxide 24 mmol/L (22-30); Chloride 104 mmol/L (98-107); Estimated CRCL calculation 67 ml/min; Estimated Glomerular Filt Rate > 60; Glucose 173 mg/dL (65-110); Magnesium 1.8 mg/dL (1.6-2.3); Potassium 4.4 mmol/L (3.4-5.0); Sodium 138 mmol/L (137-145)
[2024-04-17 08:40] LABS: Glucose Point of Care 154 mg/dl (65-105)
[2024-04-17] MEDS: amLODIPine BESYLATE 5 MG TABLET BY MOUTH (10:48)
[2024-04-17] MEDS: ATORVASTATIN 40 MG TABLET BY MOUTH (10:48)
[2024-04-17] MEDS: ASPIRIN 81 MG ENTERIC TABLET PO (10:48)
[2024-04-17] MEDS: buPROPion HCL XL (24 HR) 150 MG TABCR PO (10:48)
[2024-04-17] MEDS: CLOPIDOGREL BISULFATE 75 MG TABLET PO (10:49)
[2024-04-17] MEDS: EMPAGLIFLOZIN 25 MG TABLET BY MOUTH (10:49)
[2024-04-17] MEDS: MAGNESIUM OXIDE 200 MG TABLET PO (10:49)
--- NOTE | 2024-04-17 10:54 | PM.PNCARD ---
Progress Note: A&P Assessment and Plan (1) Chest pain: Code(s): R07.9 - Chest pain, unspecified Status: Acute Plan 1. Chest pain 2. Coronary artery disease s/p PCI to the mid LAD in August 2018 for ACS with in-stent restenosis s/p PCI to LAD again in September 2022 3. Hypertension 4. Hyperlipidemia 5. Diabetes mellitus. Hgb A1c 8.0 PLAN: -Echocardiogram showed normal LV systolic function with hypokinesis of the basal and mid anterolateral wall. -Lexiscan did not show any evidence of ischemia or infarction -Continue ASA, Plavix, high intensity statin. LDL is 47 as of 04/11/2024. -Continue Amlodipine, Lisinopril, Metoprolol. Subjective Date/time seen: 04/17/24 10:54 Interval history: Cardiology follow up visit She feels better today, denies any chest pain. Review of Systems Review of Systems: All systems reviewed & are unremarkable except as noted in HPI and below (HPI) Exam Const: General: comfortable and no acute distress HENMT: Mouth: Yes moist mucous membranes Eyes: General: appearance normal, both eyes and all related structures Sclera: sclerae normal Resp: Effort & Inspection: normal respiratory effort Cardio: Rate: regular rate Rhythm: regular rhythm Heart sounds: no murmurs Skin: General skin exam: normal color Neuro: Speech: normal speech Psych: Mental Status: mental status grossly normal Affect: normal affect Objective Data Vital Signs Vital Signs: Vital Signs - 24 hr 04/16/24 11:33 04/16/24 12:00 04/16/24 12:00 Temperature 36.7 C Pulse Rate 62 81 Respiratory Rate 14 Blood Pressure 124/71 Pulse Oximetry 98 Oxygen Delivery Room Air 04/16/24 14:00 04/16/24 16:00 04/16/24 16:00 Temperature 36.8 C Pulse Rate 76 61 Respiratory Rate 14 Blood Pressure 122/71 Pulse Oximetry 98 Oxygen Delivery Room Air 04/16/24 16:00 04/16/24 18:00 04/16/24 20:00 Temperature 36.4 C Pulse Rate 69 68 64 Respiratory Rate 18 Blood Pressure 117/65 Pulse Oximetry 97 Oxygen Delivery 04/16/24 20:00 04/16/24 22:00 04/16/24 23:46 Temperature 36.6 C Pulse Rate 68 72 64 Respiratory Rate 18 Blood Pressure 119/50 L Pulse Oximetry 95 Oxygen Delivery 04/17/24 00:00 04/17/24 00:00 04/17/24 02:00 Temperature Pulse Rate 71 71 66 Respiratory Rate 18 Blood Pressure Pulse Oximetry 95 Oxygen Delivery Room Air 04/17/24 04:00 04/17/24 04:00 04/17/24 04:48 Temperature 36.5 C Pulse Rate 65 64 61 Respiratory Rate 18 18 Blood Pressure 105/57 L Pulse Oximetry 95 95 Oxygen Delivery Room Air 04/17/24 05:55 04/17/24 08:05 Temperature 36.7 C Pulse Rate 60 65 Respiratory Rate 18 Blood Pressure 108/58 L Pulse Oximetry 98 Oxygen Delivery Intake/Output Intake/Output: Intake & Output 04/14/24 04/15/24 04/16/24 04/17/24 23:59 23:59 23:59 23:59 Intake Total 2505 350 Balance 2505 350 Meds/Results Medications: Active Medications Generic Name Dose Route Start Last Admin Trade Name Freq PRN Reason Stop Dose Admin Acetaminophen 650 mg 04/15/24 19:51 04/16/24 05:33 Acetaminophen 325 Mg Tablet PO 650 mg Q6H PRN Administration Mild Pain (1-3) or Fever Amlodipine Besylate 5 mg 04/17/24 09:00 04/17/24 10:48 Amlodipine Besylate 5 Mg Tablet BY MOUTH 5 mg Q48H [facility] Administration Aspirin 81 mg 04/16/24 09:00 04/17/24 10:48 Aspirin 81 Mg Enteric Tablet PO 81 mg DAILY [facility] Administration Atorvastatin Calcium 40 mg 04/16/24 09:00 04/17/24 10:48 Atorvastatin 40 Mg Tablet BY MOUTH 40 mg DAILY [facility] Administration Bupropion HCl 150 mg 04/16/24 09:00 04/17/24 10:48 Bupropion Hcl Xl (24 Hr) 150 Mg Tabcr PO 150 mg QAM [facility] Administration Clopidogrel Bisulfate 75 mg 04/16/24 09:00 04/17/24 10:49 Clopidogrel Bisulfate 75 Mg Tablet PO 75 mg DAILY [facility] Administration Dextrose 12.5 gm 04/15/24 19:51 Dextrose 50% 25 Gm/50 Ml Syringe IV PUSH PRN PRN Hypoglycemia Protocol Empagliflozin 25 mg 04/16/24 09:00 04/17/24 10:49 Empagliflozin 25 Mg Tablet BY MOUTH 25 mg DAILY [facility] Administration Enoxaparin Sodium 40 mg 04/17/24 09:00 Enoxaparin 40 Mg/0.4 Ml Syringe SUB-Q DAILY [facility] Fluticasone Propionate 1 spray 04/15/24 19:54 Fluticasone Propionate 0.05% Na Spr 16 Gm Btl (*Bkc) NASAL DAILY PRN allergy symptoms Gabapentin 100 mg 04/15/24 22:00 04/17/24 04:43 Gabapentin 100 Mg Capsule BY MOUTH Not Given Q8HR [facility] Glucagon 1 mg 04/15/24 19:51 Glucagon For Inj 1 Mg Vial IM PRN PRN Hypoglycemia Protocol Glucose 15 gm 04/15/24 19:51 Glucose Oral Gel 15 Gm Of Glucse In 37.5 Gm Tube PO PRN PRN Hypoglycemia Protocol Dextrose 1,000 mls @ 100 mls/hr 04/15/24 19:51 Dextrose 5% 1,000 Ml IVPB PRN PRN Hypoglycemia Protocol Insulin Aspart 2 - 5 units 04/16/24 08:00 04/17/24 10:35 Insulin Aspart (*Bkc) 100 Units/Ml SUB-Q Not Given TIDWM [facility] Protocol Insulin Aspart 1 - 2 units 04/15/24 21:00 04/16/24 21:37 Insulin Aspart (*Bkc) 100 Units/Ml SUB-Q Not Given HS [facility] Protocol Insulin Glargine 20 units 04/16/24 18:00 04/16/24 17:13 Insulin Glargine (*Bkc) 100 Units/Ml SUB-Q 20 units QPM [facility] Administration Lisinopril 20 mg 04/16/24 09:00 04/16/24 09:26 Lisinopril 20 Mg Tablet BY MOUTH 20 mg DAILY [facility] Administration Magnesium Oxide 200 mg 04/16/24 09:00 04/17/24 10:49 Magnesium Oxide 200 Mg Tablet PO 200 mg Q48H [facility] Administration Magnesium Oxide 400 mg 04/17/24 09:00 Magnesium Oxide 200 Mg Tablet PO Q48H [facility] Metoprolol Tartrate 50 mg 04/15/24 19:55 04/16/24 17:13 Metoprolol Tartrate 50 Mg Tab PO 50 mg QPM [facility] Administration Multivitamins Therapeutic 1 tablet 04/15/24 19:55 Multivitamins Therapeutic Tab (*Bkc) BY MOUTH .COMPLEX [facility] Nitroglycerin 0.4 mg 04/15/24 19:54 Nitroglycerin Sl 0.4 Mg Tablet SUBLINGUAL PRN PRN Chest Pain Radiology Results: ITS Impressions Chest X-Ray 04/15/24 16:55 IMPRESSION: No acute cardiopulmonary process. Venous Doppler Study 04/16/24 17:48 IMPRESSION: 1. No deep venous thrombosis. Labs Labs: Laboratory Results - last 24 hr 04/16/24 04/16/24 04/16/24 11:11 16:25 21:19 WBC RBC Hgb Hct MCV MCH MCHC RDW Plt Count MPV Immature Gran % (Auto) Neut % (Auto) Lymph % (Auto) [place] % (Auto) Eos % (Auto) Baso % (Auto) Lymph # (Auto) [place] # (Auto) Eos # (Auto) Baso # (Auto) Abs Immat Gran (auto) Absolute Neuts (auto) Absolute Nucleated RBC Nucleated RBC % Sodium Potassium Chloride Carbon Dioxide Anion Gap BUN Creatinine Estim Creat Clear Calc Estimated GFR Glucose POC Capillary Glucose 146 H 127 H 163 H Lactic Acid Calcium Magnesium Total Bilirubin AST ALT Alkaline Phosphatase Total Protein Albumin 04/17/24 04/17/24 04/17/24 04:16 04:50 08:16 WBC 6.0 RBC 4.92 Hgb 14.0 Hct 42.6 MCV 86.6 MCH 28.5 MCHC 32.9 RDW 14.7 H Plt Count 306 MPV 9.5 Immature Gran % (Auto) 0.2 Neut % (Auto) 63.5 Lymph % (Auto) 26.1 Tillman % (Auto) 9.0 H Eos % (Auto) 1.0 Baso % (Auto) 0.2 Lymph # (Auto) 1.56 Tillman # (Auto) 0.5 Eos # (Auto) 0.1 Baso # (Auto) 0.0 Abs Immat Gran (auto) 0.01 Absolute Neuts (auto) 3.8 Absolute Nucleated RBC 0.000 Nucleated RBC % 0.0 Sodium 138 Potassium 4.4 Chloride 104 Carbon Dioxide 24 Anion Gap 10 BUN 22 H Creatinine 0.62 L Estim Creat Clear Calc 67 Estimated GFR > 60 Glucose 173 H POC Capillary Glucose 154 H Lactic Acid 1.0 Calcium 9.1 Magnesium 1.8 Total Bilirubin 0.5 AST 21 ALT 20 Alkaline Phosphatase 42 Total Protein 7.0 Albumin 3.8
[2024-04-17] MEDS: lisinopriL 20 MG TABLET BY MOUTH (10:57)
[2024-04-17] MEDS: MAGNESIUM OXIDE 200 MG TABLET 400 MG PO (10:57)
[2024-04-17 12:25] LABS: Glucose Point of Care 153 mg/dl (65-105)
--- NOTE | 2024-04-17 13:49 | EST_ITS ---
Patient Info Name: Marge Romero Age: 69 years : 1955 Gender: Female Ht: 66 in Wt: 145 lbs BSA: 1.76 m2 Exam Date: 04/17/2024 9:35 AM Exam Location: Echo Lab Patient Status: Inpatient Admit Date: 04/15/2024 Staff Ordering Physician: Maite Ennis MD Attending Provider: Rashard Cerna MD Exercise Technologist: Pam Lindsay RDCS Nurse: Winnie Fajardo APN Exam Type: CA stress vanda w NM Study Info Indications R07.9 - Chest pain, unspecified A regadenoson stress test was performed. Summary 1. No abnormal ST-T wave changes with lexiscan. 2. Please correlate with nuclear medicine images, reported separately. Protocol: Lexiscan Stress ECG Details Stage: REST Duration (min): 1 min : 40 sec HR (bpm): 65 SBP (mmHg): 113 DBP (mmHg): 79 Stage: REST Duration (min): 9 min : 12 sec HR (bpm): 65 SBP (mmHg): 113 DBP (mmHg): 79 Stage: STAGE 1 Duration (min): 1 min : 0 sec HR (bpm): 75 SBP (mmHg): 131 DBP (mmHg): 90 Stage: RECOVERY Duration (min): 1 min : 0 sec HR (bpm): 85 SBP (mmHg): 143 DBP (mmHg): 79 Stage: RECOVERY Duration (min): 2 min : 0 sec HR (bpm): 77 SBP (mmHg): 143 DBP (mmHg): 79 Stage: RECOVERY Duration (min): 3 min : 0 sec HR (bpm): 76 SBP (mmHg): 128 DBP (mmHg): 75 Stage: RECOVERY Duration (min): 3 min : 4 sec HR (bpm): 75 SBP (mmHg): 128 DBP (mmHg): 75 Rest HR: 65 bpm Peak HR: 93 bpm Rest Sys BP: 113 mmHg Peak Sys BP: 143 mmHg Max Pred HR: 150 bpm % Max Pred HR: 62 % Target HR: 128 bpm Max RPP: 13,299 bpm*mmHg Total Time: 1 min : 0 sec Rest Rosario BP: 79 mmHg Peak Rosario BP: 79 mmHg Total Dose: 0.4 mg Resting ECG Sinus arrhythmia with nonspecific ST T wave changes. Stress ECG There is no diagnostic ST T wave changes for ischemia during Lexiscan. Arrhythmias No ventricular arrhythmias. Report Signatures
--- NOTE | 2024-04-17 15:26 | P.PNIM_ITS ---
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 Status: Acute (6) Superficial phlebitis of arm: Code(s): I80.8 - Phlebitis and thrombophlebitis of other sites Status: Acute Plan Chest pain ECHO EF 55-60%, with diastolic grade I with basal and mid anterolateral wall hypokineses for stress test today Continue Aspirin, Plavix, Statin, Metoprolol monitor cardiology following Hx of CAD s/p stents Continue above meds HTN contineu amlodipine and Lisinopril monitor DM2 SSI with accucheks and adjust with clinical course left forearm Phlebitis r/o DVT venous Doppler pending DVT prophylaxis on Sq Lovenox Subjective Date/time seen: 04/17/24 15:26 Interval history: Patient comfortable at bedside awaiting Lexiscan stress test as at the time of this encounter this morning Review of Systems Review of Systems: 12 systems were reviewed and are negativ e except for as per HPI. Exam Narrative: General: Well-developed, nontoxic-appearing female sitting up in bed in no acute distress. She appears a bit younger than her stated age. Weight: 67.9 kg. BMI: 24.2. HEENT: PERRL, EOMI. Sclera anicteric. Oral mucosa moist. Oropharynx clear. Neck: Supple. No JVD. Respiratory: Lungs are clear to auscultation bilaterally. Cardiovascular: Regular rate and rhythm with S1-S2. Chest: No tenderness to palpation over the chest wall. Gastrointestinal: Abdomen is soft, nontender, and nondistended with positive bowel sounds. Skin: Warm and dry. No rash or lesions on limited exam. Extremities: No cyanosis, clubbing, or edema. Radial and pedal pulses intact. Neurological: Alert. Cranial nerves 2-12 are grossly intact. No gross focal deficits to casual conversation. Psychiatric: Pleasant and cooperative with normal mood and affect. Judgment and insight intact. Objective Data Vital Signs Vital Signs: Vital Signs - 24 hr 04/16/24 16:00 04/16/24 16:00 04/16/24 16:00 Temperature 98.2 F Pulse Rate 61 69 Respiratory Rate 14 Blood Pressure 122/71 Pulse Oximetry 98 Oxygen Delivery Room Air 04/16/24 18:00 04/16/24 20:00 04/16/24 20:00 Temperature 97.6 F Pulse Rate 68 64 68 Respiratory Rate 18 Blood Pressure 117/65 Pulse Oximetry 97 Oxygen Delivery 04/16/24 22:00 04/16/24 23:46 04/17/24 00:00 Temperature 97.8 F Pulse Rate 72 64 71 Respiratory Rate 18 18 Blood Pressure 119/50 L Pulse Oximetry 95 95 Oxygen Delivery Room Air 04/17/24 00:00 04/17/24 02:00 04/17/24 04:00 Temperature Pulse Rate 71 66 65 Respiratory Rate 18 Blood Pressure Pulse Oximetry 95 Oxygen Delivery Room Air 04/17/24 04:00 04/17/24 04:48 04/17/24 05:55 Temperature 97.7 F Pulse Rate 64 61 60 Respiratory Rate 18 Blood Pressure 105/57 L Pulse Oximetry 95 Oxygen Delivery 04/17/24 08:00 04/17/24 08:05 04/17/24 10:00 Temperature 98.1 F Pulse Rate 65 65 62 Respiratory Rate 18 Blood Pressure 108/58 L Pulse Oximetry 98 Oxygen Delivery 04/17/24 12:00 04/17/24 12:00 04/17/24 14:00 Temperature 98.2 F Pulse Rate 61 76 71 Respiratory Rate 18 Blood Pressure 120/61 Pulse Oximetry 99 Oxygen Delivery Intake/Output Intake/Output: Intake & Output 04/14/24 04/15/24 04/16/24 04/17/24 23:59 23:59 23:59 23:59 Intake Total 2505 350 Balance 2505 350 Meds/Results Medications: Active Medications Generic Name Dose Route Start Last Admin Trade Name Freq PRN Reason Stop Dose Admin Acetaminophen 650 mg 04/15/24 19:51 04/16/24 05:33 Acetaminophen 325 Mg Tablet PO 650 mg Q6H PRN Administration Mild Pain (1-3) or Fever Amlodipine Besylate 5 mg 04/17/24 09:00 04/17/24 10:48 Amlodipine Besylate 5 Mg Tablet BY MOUTH 5 mg Q48H [facility] Administration Aspirin 81 mg 04/16/24 09:00 04/17/24 10:48 Aspirin 81 Mg Enteric Tablet PO 81 mg DAILY [facility] Administration Atorvastatin Calcium 40 mg 04/16/24 09:00 04/17/24 10:48 Atorvastatin 40 Mg Tablet BY MOUTH 40 mg DAILY [facility] Administration Bupropion HCl 150 mg 04/16/24 09:00 04/17/24 10:48 Bupropion Hcl Xl (24 Hr) 150 Mg Tabcr PO 150 mg QAM [facility] Administration Clopidogrel Bisulfate 75 mg 04/16/24 09:00 04/17/24 10:49 Clopidogrel Bisulfate 75 Mg Tablet PO 75 mg DAILY [facility] Administration Dextrose 12.5 gm 04/15/24 19:51 Dextrose 50% 25 Gm/50 Ml Syringe IV PUSH PRN PRN Hypoglycemia Protocol Empagliflozin 25 mg 04/16/24 09:00 04/17/24 10:49 Empagliflozin 25 Mg Tablet BY MOUTH 25 mg DAILY [facility] Administration Enoxaparin Sodium 40 mg 04/17/24 09:00 Enoxaparin 40 Mg/0.4 Ml Syringe SUB-Q DAILY [facility] Fluticasone Propionate 1 spray 04/15/24 19:54 Fluticasone Propionate 0.05% Na Spr 16 Gm Btl (*Bkc) NASAL DAILY PRN allergy symptoms Gabapentin 100 mg 04/15/24 22:00 04/17/24 04:43 Gabapentin 100 Mg Capsule BY MOUTH Not Given Q8HR [facility] Glucagon 1 mg 04/15/24 19:51 Glucagon For Inj 1 Mg Vial IM PRN PRN Hypoglycemia Protocol Glucose 15 gm 04/15/24 19:51 Glucose Oral Gel 15 Gm Of Glucse In 37.5 Gm Tube PO PRN PRN Hypoglycemia Protocol Dextrose 1,000 mls @ 100 mls/hr 04/15/24 19:51 Dextrose 5% 1,000 Ml IVPB PRN PRN Hypoglycemia Protocol Insulin Aspart 2 - 5 units 04/16/24 08:00 04/17/24 14:39 Insulin Aspart (*Bkc) 100 Units/Ml SUB-Q Not Given TIDWM [facility] Protocol Insulin Aspart 1 - 2 units 04/15/24 21:00 04/16/24 21:37 Insulin Aspart (*Bkc) 100 Units/Ml SUB-Q Not Given HS [facility] Protocol Insulin Glargine 20 units 04/16/24 18:00 04/16/24 17:13 Insulin Glargine (*Bkc) 100 Units/Ml SUB-Q 20 units QPM [facility] Administration Lisinopril 20 mg 04/16/24 09:00 04/17/24 10:57 Lisinopril 20 Mg Tablet BY MOUTH 20 mg DAILY [facility] Administration Magnesium Oxide 200 mg 04/16/24 09:00 04/17/24 10:49 Magnesium Oxide 200 Mg Tablet PO 200 mg Q48H [facility] Administration Magnesium Oxide 400 mg 04/17/24 09:00 04/17/24 10:57 Magnesium Oxide 200 Mg Tablet PO 400 mg Q48H [facility] Administration Metoprolol Tartrate 50 mg 04/15/24 19:55 04/16/24 17:13 Metoprolol Tartrate 50 Mg Tab PO 50 mg QPM [facility] Administration Multivitamins Therapeutic 1 tablet 04/15/24 19:55 Multivitamins Therapeutic Tab (*Bkc) BY MOUTH .COMPLEX [facility] Nitroglycerin 0.4 mg 04/15/24 19:54 Nitroglycerin Sl 0.4 Mg Tablet SUBLINGUAL PRN PRN Chest Pain Radiology Results: ITS Impressions Chest X-Ray 04/15/24 16:55 IMPRESSION: No acute cardiopulmonary process. Venous Doppler Study 04/16/24 17:48 IMPRESSION: 1. No deep venous thrombosis. Lexiscan Stress Test 04/17/24 11:25 IMPRESSION: 1. Normal myocardial perfusion at rest and during stress. 2. Left ventricular ejection fraction measuring 70%. Labs Labs: Laboratory Results - last 24 hr 04/16/24 04/16/24 04/17/24 16:25 21:19 04:16 WBC 6.0 RBC 4.92 Hgb 14.0 Hct 42.6 MCV 86.6 MCH 28.5 MCHC 32.9 RDW 14.7 H Plt Count 306 MPV 9.5 Immature Gran % (Auto) 0.2 Neut % (Auto) 63.5 Lymph % (Auto) 26.1 Bond % (Auto) 9.0 H Eos % (Auto) 1.0 Baso % (Auto) 0.2 Lymph # (Auto) 1.56 Bond # (Auto) 0.5 Eos # (Auto) 0.1 Baso # (Auto) 0.0 Abs Immat Gran (auto) 0.01 Absolute Neuts (auto) 3.8 Absolute Nucleated RBC 0.000 Nucleated RBC % 0.0 Sodium 138 Potassium 4.4 Chloride 104 Carbon Dioxide 24 Anion Gap 10 BUN 22 H Creatinine 0.62 L Estim Creat Clear Calc 67 Estimated GFR > 60 Glucose 173 H POC Capillary Glucose 127 H 163 H Lactic Acid Calcium 9.1 Magnesium 1.8 Total Bilirubin 0.5 AST 21 ALT 20 Alkaline Phosphatase 42 Total Protein 7.0 Albumin 3.8 04/17/24 04/17/24 04/17/24 04:50 08:16 11:03 WBC RBC Hgb Hct MCV MCH MCHC RDW Plt Count MPV Immature Gran % (Auto) Neut % (Auto) Lymph % (Auto) [place] % (Auto) Eos % (Auto) Baso % (Auto) Lymph # (Auto) Bond # (Auto) Eos # (Auto) Baso # (Auto) Abs Immat Gran (auto) Absolute Neuts (auto) Absolute Nucleated RBC Nucleated RBC % Sodium Potassium Chloride Carbon Dioxide Anion Gap BUN Creatinine Estim Creat Clear Calc Estimated GFR Glucose POC Capillary Glucose 154 H 153 H Lactic Acid 1.0 Calcium Magnesium Total Bilirubin AST ALT Alkaline Phosphatase Total Protein Albumin Quality VTE Prophylaxis VTE prophylaxis: mechanical ordered
--- NOTE | 2024-04-17 16:48 | P.DS_ITS ---
DS: Admitting Diagnosis Discharge Date 04/17/24 Admitting Diagnosis Chest pain. DS: Discharge Diagnosis Discharge Diagnosis (1) Chest pain: Code(s): R07.9 - Chest pain, unspecified Status: Acute DS: Summary Hospital Course Hospital Course: This is a very pleasant 69-year-old female with coronary artery disease and history of SD in 2019 status post stent x2 with in-stent restenosis in 2022, hypertension, dyslipidemia, and type 2 diabetes mellitus who presented to the emergency department via private vehicle for evaluation of chest pain. The patient provides the following history. 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 Her last stress test was in 2022 after she started having chest pain at which time she was found to have in stent restenoses. She has been maintained on dual anti-platelet therapy since that time and states compliance with her medications. 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 She finished her day at work however the chest tightness persisted and she decided to come in for evaluation. Symptoms are somewhat reminiscent to those she had before her SD in 2019. She denies syncope, near syncope, shortness of breath, pleuritic pain, palpitations, nausea, vomiting, epigastric and abdominal pain, bloating, belching, lower extremity edema, and calf pain. In the ED: Her vital signs were stable on arrival. CMP and CBC were pretty unremarkable with the only outliers being a BUN of 25 and a creatinine of 0.49. Initial troponin was less than 0.012. EKG showed sinus rhythm with borderline ST T T-wave changes, mainly in inferolateral leads. She was given aspirin 324 mg and morphine 4 mg and she is currently without chest discomfort. cardiology was consulted and patient underwent ECHO EF 55-60%, grade I diastolic dysfunction with hypokinesis of the basal and mid anterolateral wall. Lexiscan stress today was negative. Discussed with cardiology and recommended discharge and will follow up with cardiology outpatient. Continue Home aspirin, Plavix, Lipitor, Jardiance, and other meds. F/u with PCP in 3-5 days F/u with cardiology as instructed Time Spent with Patient Time attestation: Total time spent providing and/or coordinating discharge services: DS: Data Data Completed and Pending Labs on day of discharge: Labs from last 24 hours 04/17/24 04/17/24 04/17/24 11:03 08:16 04:50 WBC RBC Hgb Hct MCV MCH MCHC RDW Plt Count MPV Immature Gran % (Auto) Neut % (Auto) Lymph % (Auto) [place] % (Auto) Eos % (Auto) Baso % (Auto) Lymph # (Auto) [place] # (Auto) Eos # (Auto) Baso # (Auto) Abs Immat Gran (auto) Absolute Neuts (auto) Absolute Nucleated RBC Nucleated RBC % Sodium Potassium Chloride Carbon Dioxide Anion Gap BUN Creatinine Estim Creat Clear Calc Estimated GFR Glucose POC Capillary Glucose 153 H 154 H Lactic Acid 1.0 Calcium Magnesium Total Bilirubin AST ALT Alkaline Phosphatase Total Protein Albumin 04/17/24 04/16/24 04:16 21:19 WBC 6.0 RBC 4.92 Hgb 14.0 Hct 42.6 MCV 86.6 MCH 28.5 MCHC 32.9 RDW 14.7 H Plt Count 306 MPV 9.5 Immature Gran % (Auto) 0.2 Neut % (Auto) 63.5 Lymph % (Auto) 26.1 [place] % (Auto) 9.0 H Eos % (Auto) 1.0 Baso % (Auto) 0.2 Lymph # (Auto) 1.56 [place] # (Auto) 0.5 Eos # (Auto) 0.1 Baso # (Auto) 0.0 Abs Immat Gran (auto) 0.01 Absolute Neuts (auto) 3.8 Absolute Nucleated RBC 0.000 Nucleated RBC % 0.0 Sodium 138 Potassium 4.4 Chloride 104 Carbon Dioxide 24 Anion Gap 10 BUN 22 H Creatinine 0.62 L Estim Creat Clear Calc 67 Estimated GFR > 60 Glucose 173 H POC Capillary Glucose 163 H Lactic Acid Calcium 9.1 Magnesium 1.8 Total Bilirubin 0.5 AST 21 ALT 20 Alkaline Phosphatase 42 Total Protein 7.0 Albumin 3.8 Discharge Plan Discharge Attending physician on discharge: Alicia Arnold Consulting providers: Maite Ennis Discharging Clinician: Alicia Arnold Anticipated Discharge Date/Time: 04/17/24 16:46 Patient Disposition: Home, Self-Care Activity: as tolerated Diet: as tolerated and heart healthy Patient Instructions: Antibiotic Form, Clopidogrel (By mouth) Patient Language: Welsh Stand Alone Forms: General Discharge Information Follow-up/Referrals: Maite Ennis MD [Physician] - (F/u with cardiology as instructed ) Tulio Gregory APRN [Primary Care Provider] - (F/u with PCP in 3-5 days ) Discharge Medications: Continued aspirin [Adult Low Dose Aspirin] 81 mg tablet,delayed release (DR/EC) 81 mg PO DAILY clopidogrel [Plavix] 75 mg tablet 75 mg PO DAILY Farxiga 10 mg tablet 10 mg PO DAILY metformin 1,000 mg tablet 1,000 mg PO BID fluticasone propionate [Flonase Allergy Relief] 50 mcg/actuation spray,suspension 1 spray NASAL DAILY PRN (Reason: allergy symptoms) Qty: 50 0RF Rx Instructions: administer into each nostril nitroglycerin 0.4 mg tablet, sublingual 0.4 mg sublingual PRN PRN (Reason: Chest Pain) Qty: 30 0RF magnesium 200 mg tablet 200 mg PO DAILY Qty: 7 0RF Rx Instructions: prescribed by OBGYN. Takes magnesium gluconate OTC daily, with alternating 2 tablets every other day metoprolol tartrate 50 mg tablet 50 mg PO BID bupropion HCl [Wellbutrin XL] 150 mg tablet extended release 24 hr 150 mg PO QAM Qty: 90 2RF insulin degludec 100 unit/mL (3 mL) insulin pen 20 unit subcut QPM Ozempic 0.25 mg or 0.5 mg (2 mg/3 mL) pen injector 1 mg SUBCUT WEEKLY omega-3 fatty acids Capsule 1,500 mg PO BID multivitamin with folic acid [Daily-Carmen (with folic acid)] 400 mcg tablet See Rx Instructions .ROUTE .COMPLEX Qty: 94 3RF Dose Instruction: TAKE 1 TABLET BY MOUTH EVERY DAY Rx Instructions: TAKE 1 TABLET BY MOUTH EVERY DAY zoledronic [id number] [Reclast] 5 mg/100 mL piggyback See Rx Instructions IV .[id number] Qty: 100 0RF Rx Instructions: 5mg IV .[id number]; administer over at least 15 mins methocarbamol 750 mg tablet See Rx Instructions .ROUTE .COMPLEX Qty: 90 2RF Dose Instruction: TAKE 2 TABLETS BY MOUTH 3 TIMES A DAY Rx Instructions: TAKE 2 TABLETS BY MOUTH 3 TIMES A DAY lisinopril 20 mg tablet See Rx Instructions .ROUTE .COMPLEX Qty: 90 3RF Dose Instruction: TAKE 1 TABLET BY MOUTH EVERY DAY Rx Instructions: TAKE 1 TABLET BY MOUTH EVERY DAY atorvastatin 40 mg tablet See Rx Instructions .ROUTE .COMPLEX Qty: 90 1RF Dose Instruction: TAKE 1 TABLET BY MOUTH EVERY DAY Rx Instructions: TAKE 1 TABLET BY MOUTH EVERY DAY amlodipine 5 mg tablet See Rx Instructions .ROUTE .COMPLEX Qty: 90 0RF Dose Instruction: TAKE 1 TABLET BY MOUTH EVERY DAY Rx Instructions: TAKE 1 TABLET BY MOUTH EVERY DAY gabapentin 100 mg capsule See Rx Instructions .ROUTE .COMPLEX Qty: 90 1RF Dose Instruction: 100 MG ORALLY THREE TIMES A DAY Rx Instructions: 100 MG ORALLY THREE TIMES A DAY celecoxib 100 mg capsule See Rx Instructions .ROUTE .COMPLEX Qty: 60 2RF Dose Instruction: TAKE 1 CAPSULE BY MOUTH TWICE A DAY Rx Instructions: TAKE 1 CAPSULE BY MOUTH TWICE A DAY Date of admission: 04/15/24 18:02 Primary Care Provider: Tulio Gregory Admitting Provider: Rashard Cerna Attending physician on admission: Rashard Cerna Condition: Serious
== END 2024-04-17 18:55 | disposition home or self-care (01) ==
LOC: ANHED 18:07 → ANHIMU 04-16 05:04
PROVIDERS: Physician Assistant; Admitting Provider Hospitalist; Emergency Provider Emergency Medicine; PCP Nurse Practitioner Family; Visit Provider Internal Medicine
DX: R07.9 Chest pain, unspecified (principal); I25.10 Atherosclerotic heart disease of native coronary artery without angina pectoris; I10 Essential (primary) hypertension; I25.2 Old myocardial infarction; E78.5 Hyperlipidemia, unspecified; E11.9 Type 2 diabetes mellitus without complications; I80.8 Phlebitis and thrombophlebitis of other sites; F41.1 Generalized anxiety disorder; F32.A Depression, unspecified; N39.46 Mixed incontinence; K21.9 Gastro-esophageal reflux disease without esophagitis; Z87.891 Personal history of nicotine dependence; Z79.85 Long-term (current) use of injectable non-insulin antidiabetic drugs; Z79.4 Long term (current) use of insulin; Z79.82 Long term (current) use of aspirin; Z79.899 Other long term (current) drug therapy; Z95.5 Presence of coronary angioplasty implant and graft
CPT/HCPCS: 36415; 71046; 78452; 80048; 80053; 82948; 83036; 83605; 83690; 83735; 84484; 85025; 85610; 85730; 93005; 93017; 93971; 96374; 96375; 99285; A9270; A9502; C8929; G0378; J1815; J2270; J2785; Q9957